=== PATIENT | female | born 1960 | race Caucasian/White ===

== ENCOUNTER → 2017-07-29 08:38 | Outpatient (REF) | payer BC, SELFPAY | LOC: LAB 08:38 | PROVIDERS: Visit Provider Physician Assistant | DX: R30.9 Painful micturition, unspecified (principal) | CPT/HCPCS: 87086; 87088; 87186 ==

== ENCOUNTER → 2018-06-23 14:40 | Outpatient (CLI) | payer BC, SELFPAY ==
[2018-06-23 14:43] LABS: Microscopic, Urine URINE MICROSCOPIC (MICROSCOPIC)
--- NOTE | 2018-06-23 14:59 | XR_ITS ---
XR chest 2V HISTORY: ITS.REASON: HTN ORDERING PHYSICIAN: HEBER Del Rosario PATIENT AGE: 58 years COMPARISON: None available FINDINGS: The cardiomediastinal silhouette and pulmonary vascularity are within normal limits. The lungs are clear without infiltrates, suspicious nodules, or pleural effusions. No acute bony abnormalities. There are moderate degenerative changes mid thoracic spine. IMPRESSION: Negative chest, no acute finding
[2018-06-23 15:31] LABS: Basophils % 0.6 % (0.1-2.0); Eosinophils # 0.2 K/mm3 (0.0-0.4); Eosinophils % 2.1 % (0.1-12.0); Hematocrit 40.8 % (37.0-47.0); Hemoglobin 13.4 g/dL (12.2-16.2); Lymphocytes # 1.9 K/mm3 (0.7-4.5); Lymphocytes % 26.5 % (10-50); Mean Corpuscular HGB Conc 32.8 g/dL (31.8-35.4); Mean Corpuscular Hemoglobin 28.7 pg (27.0-31.2); Mean Corpuscular Volume 87.6 fl (81-99); Monocytes # 0.3 K/mm3 (0.1-1.0); Neutrophils # 4.7 K/mm3 (1.8-7.8); Neutrophils % 66.7 % (37.0-80.0); Platelet Count 253 K/mm3 (142-424); Red Blood Count 4.66 M/mm3 (4.20-5.40); Red Cell Distribution Width 13.3 % (11.5-17.5); White Blood Count 7.1 K/mm3 (4.8-10.8)
[2018-06-23 15:33] LABS: Activated Partial Thrombo Time 26.3 seconds (23.6-34.0); INR 1.01 (0.9-1.1); Prothrombin Time 10.4 seconds (9.4-11.8)
[2018-06-23 15:48] LABS: Hemoglobin A1C 5.7 % (0.0-7.0)
[2018-06-23 15:52] LABS: Anion Gap 14.9 mEq/L (5-15); Blood Urea Nitrogen 25 mg/dL (7-18); Calcium 9.8 mg/dL (8.5-10.1); Carbon Dioxide 29 mmol/L (21.0-32.0); Chloride 104 mmol/L (98-107); Creatinine,Serum 1.11 mg/dL (0.55-1.02); Estimated Glomerular Filt Rate 50 ml/min (>60); GFR (African American) 61 ML/MIN (>60); Glucose 103 mg/dL (74-106); Potassium 4.9 mmoL/L (3.5-5.1); Sodium 143 mmol/L (136-145)
[2018-06-23 16:00] LABS: Appearance,Urine CLEAR (Clear); Blood, Urine Negative (Negative); Color,Urine AMBER (Yellow); Glucose,Urine (UA) Negative (Negative); Ketones,Urine 1+ (Negative); Leukocyte Esterase,Urine Negative (Negative); Nitrate,Urine Negative (Negative); Protein,Urine Negative (Negative); Specific Gravity, Urine >= 1.030 (1.005-1.030); Urobilinogen,Urine 0.2 EU/dl (0.2)
[2018-06-23 16:04] LABS: Bilirubin,Urine Negative (Negative)
[2018-06-23 16:08] LABS: Bacteria,Urine 1+ /lpf; RBC,Urine Occasional #/hpf (0-3)
[2018-06-23 16:09] LABS: Mucus,Urine 1+ /lpf
== END ==
PROVIDERS: Visit Provider Physician Assistant
DX: Z01.818 Encounter for other preprocedural examination (principal); M25.561 Pain in right knee
CPT/HCPCS: 36415; 71046; 80048; 81001; 83036; 85025; 85610; 85730; 93005

== ENCOUNTER → 2018-08-12 14:42 | Outpatient (CLI) | payer BC, SELFPAY ==
[2018-08-12 14:46] LABS: Microscopic, Urine URINE MICROSCOPIC (MICROSCOPIC)
[2018-08-12 15:12] LABS: Basophils % 0.6 % (0.1-2.0); Eosinophils # 0.5 K/mm3 (0.0-0.4); Eosinophils % 7.6 % (0.1-12.0); Hematocrit 37.1 % (37.0-47.0); Hemoglobin 12.2 g/dL (12.2-16.2); Lymphocytes # 1.5 K/mm3 (0.7-4.5); Lymphocytes % 24.2 % (10-50); Mean Corpuscular Hemoglobin 29.3 pg (27.0-31.2); Mean Corpuscular Volume 88.8 fl (81-99); Monocytes # 0.3 K/mm3 (0.1-1.0); Monocytes % 5.4 % (1.7-9.3); Neutrophils # 3.7 K/mm3 (1.8-7.8); Neutrophils % 62.2 % (37.0-80.0); Platelet Count 234 K/mm3 (142-424); Red Blood Count 4.18 M/mm3 (4.20-5.40); Red Cell Distribution Width 14.1 % (11.5-17.5)
[2018-08-12 15:21] LABS: Activated Partial Thrombo Time 24.5 seconds (23.6-34.0); Prothrombin Time 10.4 seconds (9.4-11.8)
[2018-08-12 15:29] LABS: Appearance,Urine CLEAR (Clear); Bilirubin,Urine Negative (Negative); Blood, Urine Negative (Negative); Color,Urine YELLOW (Yellow); Glucose,Urine (UA) Negative (Negative); Ketones,Urine Negative (Negative); Leukocyte Esterase,Urine 1+ (Negative); Nitrate,Urine POSITIVE (Negative); Protein,Urine Negative (Negative); Specific Gravity, Urine >= 1.030 (1.005-1.030); Urobilinogen,Urine 0.2 EU/dl (0.2)
[2018-08-12 15:58] LABS: Bacteria,Urine 2+ /lpf; Squamous Epithelial Cell,Urine Occasional #/hpf (0-5)
[2018-08-12 16:22] LABS: Anion Gap 10.4 mEq/L (5-15); Blood Urea Nitrogen 22 mg/dL (7-18); Calcium 9.3 mg/dL (8.5-10.1); Carbon Dioxide 30 mmol/L (21.0-32.0); Chloride 101 mmol/L (98-107); Creatinine,Serum 1.02 mg/dL (0.55-1.02); Estimated Glomerular Filt Rate 56 ml/min (>60); GFR (African American) 67 ML/MIN (>60); Glucose 99 mg/dL (74-106); Potassium 4.4 mmoL/L (3.5-5.1); Sodium 137 mmol/L (136-145)
== END ==
PROVIDERS: Visit Provider Orthopaedic Surgery
DX: Z01.812 Encounter for preprocedural laboratory examination (principal)
CPT/HCPCS: 36415; 80048; 81001; 85025; 85610; 85730; 87086; 87088; 87186

== ENCOUNTER 2018-08-24 13:00 | Outpatient (RCR) | payer BC, SELFPAY | END 2018-08-24 16:00 | disposition home or self-care (01) | LOC: PT.CARL 13:00 | PROVIDERS: Visit Provider Orthopaedic Surgery | DX: Z96.651 Presence of right artificial knee joint (principal) | CPT/HCPCS: 97010; 97110; 97116; 97140; 97163 ==

== ENCOUNTER 2018-11-13 10:00 | Outpatient (RCR) | payer MEDICAID, BC, SELFPAY | END 2018-11-19 15:08 | disposition home or self-care (01) | LOC: PT.CARL 10:00 | PROVIDERS: Visit Provider Orthopaedic Surgery | DX: M17.11 Unilateral primary osteoarthritis, right knee (principal); Z96.652 Presence of left artificial knee joint | CPT/HCPCS: 97010; 97110; 97116; 97163; 97164 ==

== ENCOUNTER → 2019-04-29 16:34 | Outpatient (CLI) | payer BC, MEDICAID, SELFPAY | PROVIDERS: Visit Provider Physician Assistant | DX: R06.00 Dyspnea, unspecified (principal); R10.9 Unspecified abdominal pain | CPT/HCPCS: 87086; 87088; 87186 ==

== ENCOUNTER → 2019-05-11 07:43 | Outpatient (CLI) | payer BC, MEDICAID, SELFPAY ==
--- NOTE | 2019-05-11 07:44 | CA_ITS ---
APPROVED REPORT EXAM: Comprehensive 2D, Doppler, and color-flow Echocardiogram Tobacco Sweeper: Ava Reyes CRT Ht: 5 ft 5 in Wt: 338lbs BSA: 2.47 BP: 152/88 mmHg Indications: SOB, HTN, OBESITY, EX SMOKER 2D Dimensions LVOT 1.93 cm (M/F) 1.5-2.5 M-Mode Dimensions RVDd 3.27 cm (0.9-2.6) LVDd 4.10 cm (3.5-5.7) LVDs 2.05 cm (3.5-5.7) IVSd 1.90 cm (0.6-1.1) PWd 0.87 cm (0.6-1.1) EF (Teich) 81.70% FS 50.00% EDV (Teich) 74.20 mL ESV (Teich) 13.60 mL LV Diastology E/A Ratio 0.80 Mitral Valve MV A Velocity 93.00 (40-130 cm/s) Left Ventricle Left atrium is mildly enlarged, left ventricle is normal size, mild concentric left ventricular hypertrophy, visually estimated ejection fraction 55% with no regional wall motion abnormality, grade 1 diastolic dysfunction seen without tissue Doppler evidence of raise left atrial pressure. Right Ventricle Right atrium and right ventricular normal size and contractility. Aortic Valve Aortic valve is minimally thickened and fibrosed, there is no aortic stenosis or aortic insufficiency. Mitral Valve Mitral valve is grossly normal, there is mild mitral regurgitation. Tricuspid Valve Tricuspid valve is grossly normal, there is mild tricuspid regurgitation, calculated right ventricular systolic pressure is 34 mmHg. Pulmonic Valve Pulmonic valve is poorly visualized. Great Vessels Aortic root is normal size. Pericardium No significant pericardial effusion noted. Conclusion 1. Mildly enlarged left atrium, normal left ventricular size, mild concentric left ventricular hypertrophy, visually estimated ejection fraction 55% with no regional wall motion abnormality, grade 1 diastolic dysfunction seen without tissue Doppler evidence of raise left atrial pressure. 2. Mild mitral and tricuspid regurgitation, calculated right ventricular systolic pressure is 34 mmHg. 3. No significant pericardial effusion noted. Electronically signed by : Jason Pratt, 05/12/2019 06:14:57
--- NOTE | 2019-05-11 09:06 | XR_ITS ---
PROCEDURE: XR CHEST 2V CLINICAL HISTORY: Dyspnea COMPARISON: CXR2V XR chest 2V from 06/23/2018 XR CHEST 2V from 02/13/2019 FINDINGS: The cardiomediastinal silhouette and pulmonary vascularity are within normal limits. The lungs are clear without infiltrates, suspicious nodules, or pleural effusions. No acute bony abnormalities. IMPRESSION: No acute findings. Dictated by: Og Cortez 05/11/2019 12:05 Electronically signed by Og Cortez in [facility] 05/11/2019 12:05
== END ==
PROVIDERS: PCP Physician Assistant; Visit Provider Physician Assistant
DX: R06.00 Dyspnea, unspecified (principal)
CPT/HCPCS: 71046; 93306; 94060; 94726; 94729

== ENCOUNTER → 2019-05-27 07:41 | Outpatient (CLI) | payer SELFPAY ==
--- NOTE | 2019-05-27 07:41 | CT_ITS ---
PROCEDURE: CT HEART W CALCIUM SCORE CLINICAL HISTORY: eval for cad COMPARISON: No exams were available for comparison TECHNIQUE: Axial images obtained with sagittal and coronal reformats. All CT scans at the facility use one or more dose reduction, viz: automated exposure control, ma/kV adjustment per patient size (including targeted exams where dose is matched to indication, i.e. head), or iterative reconstruction technique. FINDINGS: The coronary artery calcium score is 44 indicating mild plaque burden with moderate cardiovascular disease risk. IMPRESSION: Mild plaque burden with moderate cardiovascular disease risk Dictated by: Trey Smith MD 05/27/2019 18:08 Electronically signed by Trey Smith MD in [facility] 05/27/2019 18:08
== END ==
PROVIDERS: PCP Physician Assistant; Visit Provider Internal Medicine Cardiovascular Disease
DX: I51.89 Other ill-defined heart diseases (principal); R93.1 Abnormal findings on diagnostic imaging of heart and coronary circulation; E66.01 Morbid (severe) obesity due to excess calories; I10 Essential (primary) hypertension; Z13.6 Encounter for screening for cardiovascular disorders
CPT/HCPCS: 75571

== ENCOUNTER → 2019-05-28 12:23 | Outpatient (CLI) | payer BC, MEDICAID, SELFPAY ==
[2019-05-28 14:48] LABS: Chloride 101 mmol/L (98-107); Sodium 140 mmol/L (136-145)
[2019-05-28 14:49] LABS: Potassium 4.7 mmoL/L (3.5-5.1)
[2019-05-28 14:51] LABS: Blood Urea Nitrogen 23 mg/dl (7-17); Estimated Glomerular Filt Rate 46 ml/min (>60); GFR (African American) 56 ML/MIN (>60)
[2019-05-28 14:52] LABS: Anion Gap 14.7 mEq/L (5-15); Calcium 9.5 mg/dl (8.4-10.2); Carbon Dioxide 29 mmol/L (22.0-30.0); Glucose 87 mg/dl (74-100)
[2019-05-28 15:01] LABS: NT Pro Brain Natriuretic Pep. 67.9 pg/mL (0-125)
== END ==
PROVIDERS: Visit Provider Internal Medicine Cardiovascular Disease
DX: I50.30 Unspecified diastolic (congestive) heart failure (principal); R93.1 Abnormal findings on diagnostic imaging of heart and coronary circulation; E66.01 Morbid (severe) obesity due to excess calories; I10 Essential (primary) hypertension
CPT/HCPCS: 36415; 80048; 83880

== ENCOUNTER → 2019-06-18 12:44 | Outpatient (CLI) | payer BC, MEDICAID, SELFPAY | PROVIDERS: PCP Physician Assistant; Visit Provider Internal Medicine Cardiovascular Disease | DX: R53.83 Other fatigue (principal); R40.0 Somnolence; R06.83 Snoring; R93.1 Abnormal findings on diagnostic imaging of heart and coronary circulation; I51.89 Other ill-defined heart diseases; I10 Essential (primary) hypertension; E66.01 Morbid (severe) obesity due to excess calories; G47.33 Obstructive sleep apnea (adult) (pediatric) | CPT/HCPCS: G0399 ==

== ENCOUNTER → 2019-07-12 12:15 | Outpatient (CLI) | payer BC, MEDICAID, SELFPAY ==
[2019-07-12 14:01] LABS: Ferritin 106 ng/ml (11.1-264)
[2019-07-12 15:36] LABS: Alanine Aminotransferase 20 U/L (12-78); Albumin Level 4.3 g/dl (3.5-5.0); Alkaline Phosphatase 104 U/L (38-126); Aspartate Amino Transferase 21 U/L (14-36); Bilirubin,Direct 0.1 mg/dl (0.0-0.4); Bilirubin,Indirect 0.6 mg/dL (0.0-0.9); Bilirubin,Total 0.7 mg/dl (0.2-1.3); Bilirubin,Unconjugated 0.7 mg/dL (0.0-1.1); Chol/HDL Ratio 2.2 (1-3.5); Cholesterol 110 mg/dl (140-200); HDL Cholesterol 51 mg/dl (40-60); Total Protein,Serum 7.3 g/dl (6.3-8.2); Triglycerides 125 mg/dl (30-150); VLDL Cholesterol 25 mg/dL (0-40)
[2019-07-12 15:47] LABS: Direct LDL Cholesterol 52.06 mg/dL (100-129)
== END ==
PROVIDERS: Physician Assistant; Visit Provider Specialist
DX: E83.10 Disorder of iron metabolism, unspecified (principal); G25.81 Restless legs syndrome; G47.33 Obstructive sleep apnea (adult) (pediatric); E66.01 Morbid (severe) obesity due to excess calories; I10 Essential (primary) hypertension; I27.20 Pulmonary hypertension, unspecified; I51.89 Other ill-defined heart diseases; R06.00 Dyspnea, unspecified; R93.1 Abnormal findings on diagnostic imaging of heart and coronary circulation
CPT/HCPCS: 36415; 80061; 80076; 82728

== ENCOUNTER 2019-11-05 05:20 | Emergency (ER) | payer BC, MEDICAID, SELFPAY ==
[2019-11-05 05:28] VITALS: BP 177/100; PULSE 91; RESP 18; TEMP 37; O2SAT 97; BMI 56.5
[2019-11-05 05:57] LABS: Basophils # 0.1 K/mm3 (0-0.2); Basophils % 0.6 % (0.1-2.0); Eosinophils # 0.3 K/mm3 (0.0-0.4); Eosinophils % 3.1 % (0.1-12.0); Hematocrit 38.7 % (37.0-47.0); Hemoglobin 13.3 g/dL (12.2-16.2); Lymphocytes # 1.9 K/mm3 (0.7-4.5); Lymphocytes % 20.8 % (10-50); Mean Corpuscular HGB Conc 34.5 g/dL (31.8-35.4); Mean Corpuscular Hemoglobin 30.1 pg (27.0-31.2); Mean Corpuscular Volume 87.3 fl (81-99); Mean Platelet Volume 7.3 fl (7.4-10.4); Monocytes # 0.4 K/mm3 (0.1-1.0); Monocytes % 4.3 % (1.7-9.3); Neutrophils # 6.4 K/mm3 (1.8-7.8); Neutrophils % 71.2 % (37.0-80.0); Platelet Count 238 K/mm3 (142-424); Red Blood Count 4.43 M/mm3 (4.20-5.40); White Blood Count 8.9 K/mm3 (4.8-10.8)
[2019-11-05 06:00] VITALS: BP 165/90; PULSE 94; RESP 18; O2SAT 96
[2019-11-05 06:30] VITALS: BP 160/88; PULSE 88; RESP 18; O2SAT 96
[2019-11-05 06:31] LABS: Erythrocyte Sedimentation Rate 65 mm/hr (0-30)
[2019-11-05 06:51] LABS: Chloride 101 mmol/L (98-107); Potassium 4.7 mmoL/L (3.5-5.1); Sodium 141 mmol/L (136-145)
[2019-11-05 06:53] LABS: Blood Urea Nitrogen 23 mg/dl (7-17); Creatinine Clearance Estimated 55 mL/min (50-200); Estimated Glomerular Filt Rate 57 ml/min (>60); GFR (African American) 69 ML/MIN (>60)
[2019-11-05 06:54] LABS: Alanine Aminotransferase 20 U/L (12-78); Albumin Level 4.2 g/dl (3.5-5.0); Albumin/Globulin Ratio 1.4 (1.1-1.8); Alkaline Phosphatase 110 U/L (38-126); Anion Gap 11.7 mEq/L (5-15); Aspartate Amino Transferase 18 U/L (14-36); Bilirubin,Total 0.8 mg/dl (0.2-1.3); Calcium 9.6 mg/dl (8.4-10.2); Carbon Dioxide 33 mmol/L (22.0-30.0); Globulin 3.1 g/dL (1.3-3.2); Glucose 127 mg/dl (74-100); Total Protein,Serum 7.3 g/dl (6.3-8.2)
[2019-11-05 06:59] LABS: C-Reactive Protein 16.8 mg/L (0-4)
[2019-11-05 07:00] VITALS: BP 164/84; PULSE 89; RESP 16; O2SAT 98
--- NOTE | 2019-11-05 07:22 | HMH.EDHA ---
ED Disposition Clinical Impression: Migraine Qualifiers: Migraine type: unspecified Status migrainosus presence: without status migrainosus Intractability: not intractable Qualified Code(s): G43.909 - Migraine, unspecified, not intractable, without status migrainosus Disposition: Home, Self-Care Condition on Discharge: Good Instructions: DI for Migraine Additional Instructions: call pcp for follow up Referrals: Jamilah Severino PA [Primary Care Provider] - - Critical Care Critical Care Time: No Attestation: On 11/05/19, the high probability of a clinically significant, sudden or life threatening deterioration of the following system(s) required my full and direct attention, intervention and personal management. The time I documented below is in addition to time spent performing reported procedures but includes the following listed in this critical care notation. Medical Decision Making - Medical Records Medical records reviewed: Yes: I reviewed the patient's medical records. - Obed Inquiry Pt receiving controlled substance: No Vital Signs: 11/05/19 05:28 11/05/19 06:00 11/05/19 06:30 Temperature 98.6 F Temperature Source Oral Pulse Rate [Right] 91 H 94 H 88 Respiratory Rate 18 18 18 Blood Pressure [Right Arm] 177/100 H 165/90 H 160/88 H Blood Pressure Mean [Right Arm] 125 115 112 Blood Pressure Source [Right Arm] Automatic Cuff Automatic Cuff Automatic Cuff Blood Pressure Position [Right Arm] Sitting Supine Supine 02 Sat by Pulse Oximetry 97 96 96 Oxygen Delivery Method Room Air Room Air Room Air 11/05/19 07:00 Temperature Temperature Source Pulse Rate [Right] 89 Respiratory Rate 16 Blood Pressure [Right Arm] 164/84 H Blood Pressure Mean [Right Arm] 110 Blood Pressure Source [Right Arm] Automatic Cuff Blood Pressure Position [Right Arm] Supine 02 Sat by Pulse Oximetry 98 Oxygen Delivery Method Room Air - Lab Data Lab results reviewed: Yes: I reviewed the patient's lab results. Lab Results 11/05/19 05:50: WBC 8.9, RBC 4.43, Hgb 13.3, Hct 38.7, MCV 87.3, MCH 30.1, MCHC 34.5, RDW 14.0, Plt Count 238, MPV 7.3 L, Neut % (Auto) 71.2, Lymph % (Auto) 20.8, [place] % (Auto) 4.3, Eos % (Auto) 3.1, Baso % (Auto) 0.6, Neut # (Auto) 6.4, Lymph # (Auto) 1.9, [place] # (Auto) 0.4, Eos # (Auto) 0.3, Baso # (Auto) 0.1, ESR 65 H 11/05/19 06:43: Sodium 141, Potassium 4.7, Chloride 101, Carbon Dioxide 33 H, Anion Gap 11.7, BUN 23 H, Creatinine 1.00, Estimated Creat Clear 55, Estimated GFR 57 L, Est GFR ( Amer) 69, Glucose 127 H, Calcium 9.6, Total Bilirubin 0.8, AST 18, ALT 20, Alkaline Phosphatase 110, C-Reactive Protein 16.8 H, Total Protein 7.3, Albumin 4.2, Globulin 3.1, Albumin/Globulin Ratio 1.4 Result diagrams: 11/05/19 05:50 11/05/19 06:43 Orders (Tests/Meds): ED MEDICATIONS Generic Name Dose Route Start Last Admin Trade Name Freq PRN Reason Stop Dose Admin Sodium Chloride 1,000 mls @ 999 mls/hr 11/05/19 05:45 11/05/19 05:44 Sod Chlor 0.9% 1000ml Bag IV 11/05/19 06:45 999 mls/hr .Q1H1M RANDY Administration Sodium Chloride 8 ml 11/05/19 05:39 Sodium Chloride 0.9% 10ml Vial IV 12/05/19 05:38 NEEDED PRN dilute pepcid Discontinued Medications Generic Name Dose Route Start Last Admin Trade Name Freq PRN Reason Stop Dose Admin Butorphanol Tartrate 1 mg 11/05/19 06:55 11/05/19 07:00 Stadol 1mg/1ml Vial IV 11/05/19 06:56 1 mg ONCE ONE Administration Diphenhydramine HCl 50 mg 11/05/19 05:39 11/05/19 05:44 Benadryl 50mg/1ml Vial IV 11/05/19 05:40 50 mg ONCE ONE Administration Famotidine 20 mg 11/05/19 05:39 11/05/19 05:44 Pepcid 20mg/2ml Vial IV 11/05/19 05:40 20 mg ONCE ONE Administration Ketorolac Tromethamine 30 mg 11/05/19 05:43 11/05/19 05:45 Toradol 30mg/Ml Vial IV 11/05/19 05:44 30 mg ONCE ONE Administration Methylprednisolone Sodium Succinate 125 mg 11/05/19 05:39 11/05/19 05:44 Solu-Medrol 125
[2019-11-05 07:41] VITALS: BP 160/84; PULSE 84; RESP 17; TEMP 37; O2SAT 98
== END 2019-11-05 07:42 | disposition home or self-care (01) ==
PROVIDERS: Emergency Provider Emergency Medicine; PCP Physician Assistant
DX: G43.909 Migraine, unspecified, not intractable, without status migrainosus (principal); K21.9 Gastro-esophageal reflux disease without esophagitis; I10 Essential (primary) hypertension; J45.909 Unspecified asthma, uncomplicated; Z88.5 Allergy status to narcotic agent; Z88.8 Allergy status to other drugs, medicaments and biological substances; Z90.49 Acquired absence of other specified parts of digestive tract; Z90.710 Acquired absence of both cervix and uterus; Z90.09 Acquired absence of other part of head and neck
CPT/HCPCS: 36415; 80053; 85025; 85651; 86140; 96365; 96375; 99284; J0595; J2405

== ENCOUNTER → 2020-04-11 16:26 | Outpatient (CLI) | payer BC, MEDICAID, SELFPAY ==
[2020-04-13 10:13] LABS: Covid-19 Nasal PCR Sendout P&C Negative
== END ==
PROVIDERS: PCP Physician Assistant; Visit Provider Nurse Practitioner
DX: Z20.822 Contact with and (suspected) exposure to COVID-19 (principal)
CPT/HCPCS: U0004

== ENCOUNTER 2020-06-02 19:20 | Emergency (ER) | payer BC, MEDICAID, SELFPAY ==
[2020-06-02 19:27] VITALS: BP 141/86; PULSE 89; RESP 20; TEMP 36.8; O2SAT 97; BMI 57.4
--- NOTE | 2020-06-02 19:32 | HMH.EDUTC ---
[facility] [place] Impression: Neck pain Thoracic back pain Qualifiers: Chronicity: acute Back pain laterality: right Qualified Code(s): M54.6 - Pain in thoracic spine Back strain Qualifiers: Encounter type: initial encounter Qualified Code(s): S39.012A - Strain of muscle, fascia and tendon of lower back, initial encounter Disposition: Home, Self-Care Condition on Discharge: Good Instructions: DI for Chronic Pain -- Adult, DI for Back Strain or Sprain Additional Instructions: Go home and rest. It would be best if you rested tomorrow too. No heavy lifting. No twisting. Take the oral medications as directed. The muscle relaxer (robaxin) will make you drowsy, so don't drive or operate heavy machinery after taking it. Don't start the oral steroids (prednisone) until tomorrow, since you had the shots in here today. Follow up with your regular doctor. GO TO THE ER FOR ANY WORSENING SYMPTOMS OR CONCERN, ESPECIALLY BOWEL OR BLADDER ISSUES, SADDLE AREA NUMBNESS, FEVER, ETC Prescriptions: predniSONE [Prednisone 20mg Tab] 20 mg PO BID 4 Days #8 tab Transmission Status: Received by [id number] methocarbamoL [Robaxin 750mg Tab] 750 mg PO BIDP PRN #30 tab PRN Reason: Muscle Spasm Transmission Status: Received by [id number] Referrals: Jamilah Severino PA [Primary Care Provider] - Forms: Work/School Release Time of Disposition: 19:49 Medical Decision Making - Medical Records Medical records reviewed: No: I reviewed the patient's medical records. - Obed Inquiry Pt receiving controlled substance: No Vital Signs: 06/02/20 19:27 06/02/20 19:45 Temperature 98.2 F 98 F Temperature Source Oral Pulse Rate 92 H Pulse Rate [Right] 89 Respiratory Rate 20 19 Blood Pressure 138/87 Blood Pressure [Right Arm] 141/86 H Blood Pressure Mean [Right Arm] 104 Blood Pressure Source [Right Arm] Automatic Cuff Blood Pressure Position [Right Arm] Sitting 02 Sat by Pulse Oximetry 97 Oxygen Delivery Method Room Air Orders (Tests/Meds): ED MEDICATIONS Discontinued Medications Generic Name Dose Route Start Last Admin Trade Name Freq PRN Reason Stop Dose Admin Ketorolac Tromethamine 60 mg 06/02/20 19:38 06/02/20 19:43 Ketorolac 60mg/2ml Vial IM 06/02/20 19:39 60 mg ONCE ONE Administration Methylprednisolone Sodium Succinate 125 mg 06/02/20 19:38 06/02/20 19:43 Methylprednisolone Sod Succ 125mg Vial IM 06/02/20 19:39 125 mg ONCE ONE Administration [facility] [place] - General Stated complaint: Back and shoulder pain Time Seen by Provider: 06/02/20 19:35 Mode of Arrival: Ambulatory Source of Information: Patient Limitations: No Limitations Description of Symptoms (Recalled from Triage Doc. by RN): upper back and neck pain. no injury. she says she just feels sore. HEENT Symptoms (Recalled from RN notes): No Resp Symptoms (Recalled from RN notes): No Skin Symptoms (Recalled from RN notes): No MS Symptoms (Recalled from RN notes): Yes (neck and uppper back pain) Functional Status (Recalled from RN notes): na - History of Present Illness Provider Complaint: She reports that for the past 2 days she has had upper back and neck pain. She states that it feels like she pulled a muscle. She denies any known injury. She denies any numbness of her extremities. - Related Data Home Medications Medication Instructions Recorded Confirmed metoprolol succinate 50 mg 50 mg PO DAILY tab 08/13/19 04/11/20 tablet,extended release 24 hr Previous Rx's Medication Instructions Recorded albuterol sulfate 90 mcg/actuation See Rx Instructions .ROUTE 07/05/19 aerosol inhaler .COMPLEX #18 inhaler atorvastatin 40 mg tablet 40 mg PO DAILY #90 tab 09/06/19 diclofenac sodium 75 mg See Rx Instructions .ROUTE 11/30/19 tablet,delayed release .COMPLEX #90 tab amlodipine 5 mg tablet See Rx Instructions .ROUTE 12/30/19 .COMPLEX #90 tab pen needle, diabeti
[2020-06-02 19:45] VITALS: BP 138/87; PULSE 92; RESP 19; TEMP 36.6
== END 2020-06-02 19:55 | disposition home or self-care (01) ==
PROVIDERS: Emergency Provider Nurse Practitioner Family; PCP Physician Assistant
DX: S39.012A Strain of muscle, fascia and tendon of lower back, initial encounter (principal); M54.6 Pain in thoracic spine; I10 Essential (primary) hypertension; K21.9 Gastro-esophageal reflux disease without esophagitis; J45.909 Unspecified asthma, uncomplicated; Z79.899 Other long term (current) drug therapy; Z88.5 Allergy status to narcotic agent; Z88.8 Allergy status to other drugs, medicaments and biological substances
CPT/HCPCS: 96372; 99202; G0463

== ENCOUNTER 2020-08-21 13:46 | Emergency (ER) | payer BC, MEDICAID, SELFPAY ==
[2020-08-21 14:50] VITALS: BP 140/82; PULSE 78; RESP 20; TEMP 36.9; O2SAT 96; BMI 58.2
[2020-08-21 15:08] LABS: UTC Strep Screen (Rapid) Negative (Negative)
--- NOTE | 2020-08-21 15:11 | HMH.EDUTC ---
[facility] [place] Clinical Impression: Pharyngitis Qualifiers: Pharyngitis/tonsillitis etiology: unspecified etiology Qualified Code(s): J02.9 - Acute pharyngitis, unspecified Disposition: Home, Self-Care Condition on Discharge: Good Instructions: Sore Throat, DI for Pharyngitis/Tonsillopharyngitis -- Adult Additional Instructions: Drink plenty of fluids. Take tylenol or ibuprofen for pain or fever. Take the medications as directed. Follow up with your regular doctor. GO TO THE ER FOR ANY WORSENING SYMPTOMS Prescriptions: predniSONE [Prednisone 20mg Tab] 20 mg PO BID 4 Days #8 tab Transmission Status: Received by [id number] Azithromycin [Z-Howard 250mg Tab*] 250 mg PO UD DOSE PK #6 tab Transmission Status: Received by [facility] #[id number] Referrals: Jamilah Severino PA [Primary Care Provider] - Forms: Work/School Release Time of Disposition: 15:18 Medical Decision Making - Medical Records Medical records reviewed: No: I reviewed the patient's medical records. - Obed Inquiry Pt receiving controlled substance: No Vital Signs: 08/21/20 14:50 08/21/20 15:22 Temperature 98.4 F 98.4 F Temperature Source Oral Pulse Rate 78 Pulse Rate [Left Brachial] 78 Respiratory Rate 20 20 Blood Pressure 140/82 Blood Pressure [Left Arm] 140/82 Blood Pressure Mean [Left Arm] 101 Blood Pressure Source [Left Arm] Automatic Cuff Blood Pressure Position [Left Arm] Sitting 02 Sat by Pulse Oximetry 96 Oxygen Delivery Method Room Air - Lab Data Lab results reviewed: Yes: I reviewed the patient's lab results. Lab Results 08/21/20 15:07: Strep Scn Rapid Clinic Negative Orders (Tests/Meds): ORDERS Category Date Time Status Strep Screen Confirmation Stat Micro 08/21/20 15:07 Received [facility] [place] - General Stated complaint: sore throat, both ear pain Time Seen by Provider: 08/21/20 15:11 Mode of Arrival: Ambulatory Source of Information: Patient Limitations: No Limitations Description of Symptoms (Recalled from Triage Doc. by RN): PATIENT C/O SORE THROAT, BILATERAL EAR ACHE AND SORE NECK SINCE FRIDAY NIGHT HEENT Symptoms (Recalled from RN notes): Yes Resp Symptoms (Recalled from RN notes): No Skin Symptoms (Recalled from RN notes): No MS Symptoms (Recalled from RN notes): No Functional Status (Recalled from RN notes): WNL - History of Present Illness Provider Complaint: She c/o for the past 2 days she has had a sore throat and bilateral ear pain. She denies a cough or chest congestion. - Related Data Home Medications Medication Instructions Recorded Confirmed metoprolol succinate 50 mg 50 mg PO DAILY tab 08/13/19 04/11/20 tablet,extended release 24 hr Previous Rx's Medication Instructions Recorded albuterol sulfate 90 mcg/actuation See Rx Instructions .ROUTE 07/05/19 aerosol inhaler .COMPLEX #18 inhaler atorvastatin 40 mg tablet 40 mg PO DAILY #90 tab 09/06/19 diclofenac sodium 75 mg See Rx Instructions .ROUTE 11/30/19 tablet,delayed release .COMPLEX #90 tab amlodipine 5 mg tablet See Rx Instructions .ROUTE 12/30/19 .COMPLEX #90 tab pen needle, diabetic 32 gauge x See Rx Instructions .ROUTE 12/30/19/16 .MEDSUPPLY #100 each ergocalciferol (vitamin D2) 1,250 1,250 mcg PO QWEEK #12 cap 01/03/20 mcg (50,000 unit) capsule aspirin 81 mg tablet,delayed 81 mg PO DAILY #30 tab 02/03/20 release fluticasone 100 mcg-salmeterol 50 See Rx Instructions .ROUTE 02/03/20 mcg/dose blistr powdr for .COMPLEX #60 disk inhalation lisinopril 20 See Rx Instructions .ROUTE 02/03/20 mg-hydrochlorothiazide 25 mg tablet .COMPLEX #90 tab montelukast 10 mg tablet 10 mg PO DAILY #90 tab 02/03/20 omeprazole 40 mg capsule,delayed See Rx Instructions .ROUTE 02/03/20 release .COMPLEX #90 cap liraglutide (weight loss) 3 mg/0.5 See Rx Instructions .ROUTE 03/27/20 mL (18 mg/3 mL) subcut pen injector .COMPLEX #15 syringe amoxicillin 875 mg-potassium 1 tab PO BID 10 D
[2020-08-21 15:22] VITALS: BP 140/82; PULSE 78; RESP 20; TEMP 36.9; O2SAT 96
== END 2020-08-21 15:27 | disposition home or self-care (01) ==
PROVIDERS: Emergency Provider Nurse Practitioner Family; PCP Physician Assistant
DX: J02.9 Acute pharyngitis, unspecified (principal)
CPT/HCPCS: 87880; 99202; G0463

== ENCOUNTER 2020-11-12 11:59 | Emergency (ER) | payer BC, MEDICAID, SELFPAY ==
[2020-11-12 12:00] VITALS: BP 152/90; PULSE 81; RESP 18; TEMP 36.8; O2SAT 94; BMI 58.2
--- NOTE | 2020-11-12 12:33 | HMH.EDUTC ---
[facility] [place] Disposition Clinical Impression: Nausea Diarrhea Qualifiers: Diarrhea type: unspecified type Qualified Code(s): R19.7 - Diarrhea, unspecified Disposition: Home, Self-Care Condition on Discharge: Good Instructions: Diarrhea, DI for Nausea -- Adult Additional Instructions: Monitor temperature. Seek treatment if fever develops. Follow-up immediately if new or worse symptoms worsen or no noticeable improvement over 48 hours. Increase fluids such as water, Gatorade, Powerade, juice or Pedialyte with limited formula/dietary in children No food is okay as long as you are drinking. Once ready to eat start bland such as bananas, rice, applesauce, toast. Contagious until no diarrhea, vomiting, fever times 48 hours without medication Avoid antidiarrheals unless told otherwise. Best to let the virus run its course. Follow-up immediately for new or worsening symptoms or no noticeable improvement over the next 48 hours. covid swab was sent to lab, call later today for results. self isolate until test results are known to be negative Prescriptions: Dicyclomine HCl [Bentyl 10mg capsule] 10 mg PO TID PRN 3 Days #9 cap PRN Reason: Cramping Transmission Status: [id number] ondansetron HCL [Zofran 4mg Tab*] 4 mg PO TIDP PRN 4 Days #12 tab PRN Reason: Nausea Transmission Status: [id number] Referrals: Jamilah Severino PA [Primary Care Provider] - Forms: Work/School Release Time of Disposition: 12:41 Medical Decision Making - Obed Inquiry Pt receiving controlled substance: No Obed was queried for this patient: No Vital Signs: 11/12/20 12:00 Temperature 98.2 F Temperature Source Oral Pulse Rate [Left Brachial] 81 Respiratory Rate 94 H Blood Pressure [Left Arm] 152/90 H Blood Pressure Mean [Left Arm] 110 Blood Pressure Source [Left Arm] Automatic Cuff Blood Pressure Position [Left Arm] Sitting 02 Sat by Pulse Oximetry 94 L Oxygen Delivery Method Room Air [facility] [place] HPI - General Chief complaint: [facility]gent [facility] Stated complaint: diarrhea, [place] Time Seen by Provider: 11/12/20 12:33 Mode of Arrival: Ambulatory Source of Information: Patient Limitations: No Limitations Description of Symptoms (Recalled from Triage Doc. by RN): PATIENT C/O ABDOMINAL CRAMPING, DIARRHEA, NAUSEA, BACK PAIN AND HEADACHE SINCE FRIDAY HEENT Symptoms (Recalled from RN notes): Yes Resp Symptoms (Recalled from RN notes): No Skin Symptoms (Recalled from RN notes): No MS Symptoms (Recalled from RN notes): No Functional Status (Recalled from RN notes): WNL - History of Present Illness Provider Complaint: 60 yr old female presents for abd cramping,diarrhea,nausea headache and low back pain since friday. denies fever - Related Data Home Medications Medication Instructions Recorded Confirmed metoprolol succinate 50 mg 50 mg PO DAILY tab 08/13/19 10/23/20 tablet,extended release 24 hr Previous Rx's Medication Instructions Recorded diclofenac sodium 75 mg See Rx Instructions .ROUTE 11/30/19 tablet,delayed release .COMPLEX #90 tab amlodipine 5 mg tablet See Rx Instructions .ROUTE 12/30/19 .COMPLEX #90 tab ergocalciferol (vitamin D2) 1,250 1,250 mcg PO QWEEK #12 cap 01/03/20 mcg (50,000 unit) capsule aspirin 81 mg tablet,delayed 81 mg PO DAILY #30 tab 02/03/20 release fluticasone 100 mcg-salmeterol 50 See Rx Instructions .ROUTE 02/03/20 mcg/dose blistr powdr for .COMPLEX #60 disk inhalation lisinopril 20 See Rx Instructions .ROUTE 02/03/20 mg-hydrochlorothiazide 25 mg tablet .COMPLEX #90 tab montelukast 10 mg tablet 10 mg PO DAILY #90 tab 02/03/20 omeprazole 40 mg capsule,delayed See Rx Instructions .ROUTE 02/03/20 release .COMPLEX #90 cap liraglutide (weight loss) 3 mg/0.5 See Rx Instructions .ROUTE 03/27/20 mL (18 mg/3 mL) subcut pen injector .COMPLEX #15 syringe loratadine 10 mg tablet See Rx Instructions .ROUTE 05/29/20 .COMPLEX #90 tab spironolactone 25 mg
[2020-11-12 12:44] VITALS: BP 152/90; PULSE 81; RESP 22; TEMP 36.8; O2SAT 94
[2020-11-12 13:11] LABS: Adenovirus F 40/41, stool Not Detected (NotDetected); Astrovirus Not Detected (NotDetected); Campylobacter Not Detected (NotDetected); Clostridium Difficile A/B, PCR Not Detected (NotDetected); Cryptosporidium Not Detected (NotDetected); Cyclospora Cayetanesis Not Detected (NotDetected); Entamoeba histolytica Not Detected (NotDetected); Enteroaggregative E coli Not Detected (NotDetected); Enteropathogenic E coli Not Detected (NotDetected); Enterotoxigenic E coli Not Detected (NotDetected); Giardia lamblia Not Detected (NotDetected); Norovirus Not Detected (NotDetected); Plesimonas Shigalloides, PCR Not Detected (NotDetected); Rotavirus A Not Detected (NotDetected); Salmonella, PCR Not Detected (NotDetected); Sapovirus Not Detected (NotDetected); Shiga-like toxin E coli Not Detected (NotDetected); Shigella Enterovasive E coli Not Detected (NotDetected); Vibrio Cholerae Not Detected (NotDetected); Vibrio, PCR Not Detected (NotDetected); Yersinia Entercolitica, PCR Not Detected (NotDetected)
== END 2020-11-12 12:50 | disposition home or self-care (01) ==
PROVIDERS: Emergency Provider Nurse Practitioner Family; PCP Physician Assistant
DX: R11.0 Nausea (principal); R19.7 Diarrhea, unspecified
CPT/HCPCS: 87507; 99202; G0463; U0003

== ENCOUNTER → 2021-01-11 18:44 | Outpatient (CLI) | payer BC, MEDICAID, SELFPAY | PROVIDERS: Visit Provider Nurse Practitioner Family | DX: N39.0 Urinary tract infection, site not specified (principal); B96.20 Unspecified Escherichia coli [E. coli] as the cause of diseases classified elsewhere | CPT/HCPCS: 87086; 87088; 87186 ==

== ENCOUNTER → 2021-02-10 11:25 | Outpatient (CLI) | payer BC, MEDICAID, SELFPAY ==
[2021-02-10 11:44] LABS: Basophils # 0.1 K/mm3 (0-0.2); Eosinophils # 0.3 K/mm3 (0.0-0.4); Eosinophils % 3.5 % (0.1-12.0); Hematocrit 38.9 % (37.0-47.0); Hemoglobin 12.7 g/dL (12.2-16.2); Lymphocytes # 1.9 K/mm3 (0.7-4.5); Lymphocytes % 24.8 % (10-50); Mean Corpuscular HGB Conc 32.7 g/dL (31.8-35.4); Mean Corpuscular Hemoglobin 29.4 pg (27.0-31.2); Mean Corpuscular Volume 89.8 fl (81-99); Mean Platelet Volume 7.9 fl (7.4-10.4); Monocytes # 0.3 K/mm3 (0.1-1.0); Monocytes % 4.2 % (1.7-9.3); Neutrophils % 66.6 % (37.0-80.0); Platelet Count 281 K/mm3 (142-424); Red Blood Count 4.33 M/mm3 (4.20-5.40); Red Cell Distribution Width 14.8 % (11.5-17.5); White Blood Count 7.6 K/mm3 (4.8-10.8)
[2021-02-10 12:16] LABS: Chloride 104 mmol/L (98-107); Potassium 5.7 mmoL/L (3.5-5.1); Sodium 142 mmol/L (136-145)
[2021-02-10 12:19] LABS: Alanine Aminotransferase 30 U/L (12-78); Albumin Level 4.3 g/dl (3.5-5.0); Albumin/Globulin Ratio 1.5 (1.1-1.8); Alkaline Phosphatase 95 U/L (38-126); Anion Gap 11.7 mEq/L (5-15); Aspartate Amino Transferase 24 U/L (14-36); Bilirubin,Total 0.5 mg/dl (0.2-1.3); Blood Urea Nitrogen 31 mg/dl (7-17); Calcium 9.7 mg/dl (8.4-10.2); Carbon Dioxide 32 mmol/L (22.0-30.0); Cholesterol 166 mg/dl (140-200); Estimated Glomerular Filt Rate 51 ml/min (>60); GFR (African American) 61 ML/MIN (>60); Globulin 2.8 g/dL (1.3-3.2); Glucose 112 mg/dl (74-100); Iron 70 ug/dL (37-170); Total Protein,Serum 7.1 g/dl (6.3-8.2); Triglycerides 170 mg/dl (30-150); VLDL Cholesterol 34 mg/dL (0-40)
[2021-02-10 12:20] LABS: Chol/HDL Ratio 3.5 (1-3.5); HDL Cholesterol 48 mg/dl (40-60)
[2021-02-10 12:29] LABS: Total Iron Binding Capacity 295 ug/dL (265-497)
[2021-02-10 12:30] LABS: Direct LDL Cholesterol 83.46 mg/dL (100-129)
[2021-02-10 12:37] LABS: 25-OH Vitamin D, Total 37.2 ng/mL (30-100)
[2021-02-10 12:51] LABS: Thyroid Stimulating Hormone 1.83 uIU/mL (0.465-4.68)
[2021-02-10 12:55] LABS: Ferritin 113 ng/ml (11.1-264)
[2021-02-10 13:17] LABS: Vitamin B12 290 pg/mL (239-931)
== END ==
PROVIDERS: Visit Provider Physician Assistant
DX: G62.9 Polyneuropathy, unspecified (principal); G25.81 Restless legs syndrome; E66.01 Morbid (severe) obesity due to excess calories; Z68.43 Body mass index [BMI] 50.0-59.9, adult
CPT/HCPCS: 36415; 80053; 80061; 82306; 82607; 82728; 83540; 83550; 84443; 85025

== ENCOUNTER → 2021-02-14 18:09 | Outpatient (CLI) | payer BC, MEDICAID, SELFPAY ==
[2021-02-14 19:10] LABS: Anion Gap 11.1 mEq/L (5-15); Blood Urea Nitrogen 36 mg/dl (7-17); Calcium 9.3 mg/dl (8.4-10.2); Carbon Dioxide 32 mmol/L (22.0-30.0); Chloride 102 mmol/L (98-107); Estimated Glomerular Filt Rate 46 ml/min (>60); GFR (African American) 55 ML/MIN (>60); Glucose 98 mg/dl (74-100); Potassium 5.1 mmoL/L (3.5-5.1); Sodium 140 mmol/L (136-145)
[2021-02-14 19:12] LABS: Hemoglobin A1C 6.1 % (4.0-6.0)
== END ==
PROVIDERS: Visit Provider Physician Assistant
DX: R89.9 Unspecified abnormal finding in specimens from other organs, systems and tissues (principal); R73.09 Other abnormal glucose
CPT/HCPCS: 80048; 83036

== ENCOUNTER 2021-04-03 18:35 | Emergency (ER) | payer BC, MEDICAID, SELFPAY ==
[2021-04-03 20:13] VITALS: BP 144/70; PULSE 86; RESP 19; TEMP 37; O2SAT 96; BMI 58.2
[2021-04-03 20:21] LABS: UTC Strep Screen (Rapid) Negative (Negative)
--- NOTE | 2021-04-03 20:22 | HMH.EDUTC ---
[facility] [place] Clinical Impression: Bronchitis Sinusitis Qualifiers: Sinusitis location: unspecified location Chronicity: unspecified Qualified Code(s): J32.9 - Chronic sinusitis, unspecified Disposition: Home, Self-Care Condition on Discharge: Good Instructions: Sinusitis, Acute Bronchitis, DI for Sinusitis Additional Instructions: *Monitor Temp, Over the counter Motrin or Tylenol as directed/as needed Tylenol every 4 hours and Motrin every 6 hours (as long as your family doctor has told you that you can take it) for fever or pain. and straight to ER if unable to lower temp less than 101.0 after medication given *Warm salt water gargles may help to soothe the throat *Throat Lozenges *Warm fluids like tea with honey may help to soothe the throat *Sleep elevated *Humidifier/Vaporizer Follow up IMMEDIATELY for new or worsening symptoms or no Noticeable improvement over the next 48-72 hours. 911 for difficulty breathing or swallowing You were tested for today for COVID19 your test result should be back in the next 24-48 hours, you check your results on the [facility] my health portal if you have trouble logging on or seeing your results you may call You was given a handout with instructions for Self Quarantine and Self isolation for while you wait on test results and what to do if they are positive If you are positive the Health Dept will be contacting you also Make sure to take your Vitamins Vit. C Vit D and Zinc if you can take them Prescriptions: Benzonatate [Benzonatate 100mg cap] 100 mg PO Q8HP PRN #15 cap PRN Reason: Cough Transmission Status: Pending to [facility] Amoxicillin/Potassium Clav [Augmentin 875-125 Tablet] 1 tab PO Q12H 10 Days #20 tab Transmission Status: Pending to [facility] predniSONE [Deltasone 10mg tablet] 10 mg PO BID 5 Days #10 tab Transmission Status: Pending to [facility] Referrals: Jamilah Severino PA [Primary Care Provider] - As needed Forms: Work/School Release Time of Disposition: 20:50 Medical Decision Making - Obed Inquiry Pt receiving controlled substance: No Obed was queried for this patient: No Vital Signs: 04/03/21 20:13 Temperature 98.6 F Temperature Source Oral Pulse Rate [Right Radial] 86 Respiratory Rate 19 Blood Pressure [Right Arm] 144/70 H Blood Pressure Mean [Right Arm] 94 Blood Pressure Source [Right Arm] Automatic Cuff Blood Pressure Position [Right Arm] Sitting 02 Sat by Pulse Oximetry 96 Oxygen Delivery Method Room Air - Lab Data Lab results reviewed: Yes: I reviewed the patient's lab results. Lab Results 04/03/21 20:12: Strep Scn Rapid Clinic Negative Orders (Tests/Meds): ORDERS Category Date Time Status Covid-19 Nasal PCR ([facility]) Routine Lab 04/03/21 20:00 Received Strep Screen Confirmation Stat Micro 04/03/21 20:12 Received [facility] UTC HPI - General Stated complaint: covid test/treated for covid symptoms Time Seen by Provider: 04/03/21 20:22 Mode of Arrival: Ambulatory Source of Information: Patient Limitations: No Limitations Description of Symptoms (Recalled from Triage Doc. by RN): C/O cough, chills, sore throat, bodyaches x4 days HEENT Symptoms (Recalled from RN notes): Yes (sore throat) Resp Symptoms (Recalled from RN notes): Yes (cough) Skin Symptoms (Recalled from RN notes): No MS Symptoms (Recalled from RN notes): Yes (bodyaches) Functional Status (Recalled from RN notes): n/a - History of Present Illness Provider Complaint: Patient states that she has not felt well for about a week States She has been having sinus pain and pressure, cough, drainage in the back of her throat body aches and low grade fever State that she feels achy all over and sore from coughing State that today she has continued to feel worse so she came in to get checked State that tested for COVID yesterday and was negative - Related Data Home Medications Medication Instructions
[2021-04-03 20:42] LABS: UTC Influenza A Antigen Negative (Negative)
[2021-04-03 20:43] LABS: UTC Influenza B Antigen Negative (Negative)
[2021-04-03 20:58] VITALS: BP 144/70; PULSE 86; RESP 19; TEMP 37; O2SAT 96
== END 2021-04-03 20:59 | disposition home or self-care (01) ==
PROVIDERS: Emergency Provider Nurse Practitioner; PCP Physician Assistant
DX: J20.9 Acute bronchitis, unspecified (principal); J32.9 Chronic sinusitis, unspecified; K21.9 Gastro-esophageal reflux disease without esophagitis; I10 Essential (primary) hypertension; J45.909 Unspecified asthma, uncomplicated; Z20.822 Contact with and (suspected) exposure to COVID-19; Z88.5 Allergy status to narcotic agent
CPT/HCPCS: 87804; 87880; 99203; C9803; G0463; U0003; U0005

== ENCOUNTER 2021-04-07 11:55 | Emergency (ER) | payer BC, MEDICAID, SELFPAY ==
[2021-04-07] VITALS (8 sets, daily range): BP systolic 113–173; BP diastolic 65–103; PULSE 78–105; RESP 13–24; TEMP 36.6–36.9; O2SAT 94–98; BMI 58.2
--- NOTE | 2021-04-07 12:11 | XR_ITS ---
PROCEDURE INFORMATION: Exam: XR Chest Exam date and time: 04/07/2021 12:11 PM Age: 61 years old Clinical indication: Shortness of breath; Additional info: Sob- covid negative TECHNIQUE: Imaging protocol: XR of the chest. Views: 2 views. COMPARISON: CR XR CHEST 2V 05/11/2019 9:19 AM FINDINGS: Lungs: No focal airspace disease. Pleural spaces: Unremarkable. No pleural effusion. No pneumothorax. Heart/Mediastinum: Cardiomediastinal silhouette is within normal limits. Bones/joints: Unremarkable. IMPRESSION: No acute cardiopulmonary abnormality.
--- NOTE | 2021-04-07 12:28 | HMH.EDGENADL ---
ED Disposition Clinical Impression: Moderate asthma with acute exacerbation Qualifiers: Asthma persistence: unspecified Qualified Code(s): J45.901 - Unspecified asthma with (acute) exacerbation Disposition: Home, Self-Care Condition on Discharge: Good Additional Instructions: Please continue to monitor your condition at home. If your condition worsens or any other concerns arise, please return to the emergency department for reassessment. Referrals: Jamilah Severino PA [Primary Care Provider] - - Critical Care Critical Care Time: No Attestation: On 04/07/21, the high probability of a clinically significant, sudden or life threatening deterioration of the following system(s) required my full and direct attention, intervention and personal management. The time I documented below is in addition to time spent performing reported procedures but includes the following listed in this critical care notation. Medical Decision Making - Medical Records Medical records reviewed: Yes: I reviewed the patient's medical records. - Obed Inquiry Pt receiving controlled substance: No Vital Signs: 04/07/21 11:56 04/07/21 13:50 04/07/21 14:00 Temperature 98.4 F Temperature Source Oral Pulse Rate 100 H 101 H Pulse Rate [Radial] 104 H Respiratory Rate 24 16 16 Blood Pressure 139/81 133/74 Blood Pressure [Right Arm] 173/103 H Blood Pressure Mean 103 93 Blood Pressure Mean [Right Arm] 126 Blood Pressure Position [Right Arm] Sitting 02 Sat by Pulse Oximetry 94 L 98 97 Oxygen Delivery Method Room Air 04/07/21 14:30 04/07/21 15:00 04/07/21 15:30 Temperature Temperature Source Pulse Rate 103 H 101 H 100 H Pulse Rate [Radial] Respiratory Rate 15 13 17 Blood Pressure 139/71 137/83 138/82 Blood Pressure [Right Arm] Blood Pressure Mean 98 Blood Pressure Mean [Right Arm] Blood Pressure Position [Right Arm] 02 Sat by Pulse Oximetry 97 98 97 Oxygen Delivery Method 04/07/21 16:00 Temperature Temperature Source Pulse Rate 105 H Pulse Rate [Radial] Respiratory Rate 18 Blood Pressure 128/86 Blood Pressure [Right Arm] Blood Pressure Mean Blood Pressure Mean [Right Arm] Blood Pressure Position [Right Arm] 02 Sat by Pulse Oximetry 97 Oxygen Delivery Method - Lab Data Lab results reviewed: Yes: I reviewed the patient's lab results. Lab Results 04/07/21 12:19: VBG pH 7.36, VBG pCO2 49.1, VBG pO2 103.0 H, VBG HCO3 27.1, VBG Total CO2 28.6 H, VBG O2 Saturation 97.7 H, VBG Base Excess 1.6 04/07/21 12:55: WBC 5.7, RBC 4.56, Hgb 13.2, Hct 41.6, MCV 91.3, MCH 28.9, MCHC 31.7 L, RDW 14.8, Plt Count 245, MPV 7.8, Neut % (Auto) 74.5, Lymph % (Auto) 20.8, [place] % (Auto) 3.6, Eos % (Auto) 0.3, Baso % (Auto) 0.9, Neut # (Auto) 4.3, Lymph # (Auto) 1.2, [place] # (Auto) 0.2, Eos # (Auto) 0.0, Baso # (Auto) 0.1 04/07/21 12:55: D-Dimer 0.80 H 04/07/21 12:55: Sodium 139, Potassium 4.4, Chloride 100, Carbon Dioxide 32 H, Anion Gap 11.4, BUN 19 H, Creatinine 1.00, Estimated Creat Clear 53, Estimated GFR 56 L, Est GFR ( Amer) 68, Glucose 175 H, Calcium 9.1, Magnesium 1.8, Total Bilirubin 0.6, AST 33, ALT 45, Alkaline Phosphatase 99, Total Protein 7.7, Albumin 4.6, Globulin 3.1, Albumin/Globulin Ratio 1.5 Result diagrams: 04/07/21 12:55 04/07/21 12:55 Orders (Tests/Meds): ED MEDICATIONS Discontinued Medications Generic Name Dose Route Start Last Admin Trade Name Freq PRN Reason Stop Dose Admin Albuterol/Ipratropium 6 ml 04/07/21 12:19 04/07/21 12:38 Ipratropium/Albuterol 3 Ml Neb IH 04/07/21 12:20 6 ml ONCE ONE Administration Dexamethasone 10 mg 04/07/21 12:20 04/07/21 12:38 Dexamethasone 1mg/1ml Intensol 10ml Udc (Er) PO 04/07/21 12:21 10 mg ONCE ONE Administration Magnesium Sulfate 2 gm/ Sodium 104 mls @ 100 mls/hr 04/07/21 13:19 04/07/21 13:47 Chloride IV 04/07/21 14:21 100 mls/hr ONCE ONE Administration Medical Decision Narrative:
[2021-04-07 13:07] LABS: Basophils # 0.1 K/mm3 (0-0.2); Basophils % 0.9 % (0.1-2.0); Eosinophils % 0.3 % (0.1-12.0); Hematocrit 41.6 % (37.0-47.0); Hemoglobin 13.2 g/dL (12.2-16.2); Lymphocytes # 1.2 K/mm3 (0.7-4.5); Lymphocytes % 20.8 % (10-50); Mean Corpuscular HGB Conc 31.7 g/dL (31.8-35.4); Mean Corpuscular Hemoglobin 28.9 pg (27.0-31.2); Mean Corpuscular Volume 91.3 fl (81-99); Mean Platelet Volume 7.8 fl (7.4-10.4); Monocytes # 0.2 K/mm3 (0.1-1.0); Monocytes % 3.6 % (1.7-9.3); Neutrophils # 4.3 K/mm3 (1.8-7.8); Neutrophils % 74.5 % (37.0-80.0); Platelet Count 245 K/mm3 (142-424); Red Blood Count 4.56 M/mm3 (4.20-5.40); Red Cell Distribution Width 14.8 % (11.5-17.5); White Blood Count 5.7 K/mm3 (4.8-10.8)
[2021-04-07 13:17] LABS: Alanine Aminotransferase 45 U/L (12-78); Albumin Level 4.6 g/dl (3.5-5.0); Albumin/Globulin Ratio 1.5 (1.1-1.8); Alkaline Phosphatase 99 U/L (38-126); Anion Gap 11.4 mEq/L (5-15); Aspartate Amino Transferase 33 U/L (14-36); Bilirubin,Total 0.6 mg/dl (0.2-1.3); Blood Urea Nitrogen 19 mg/dl (7-17); Calcium 9.1 mg/dl (8.4-10.2); Carbon Dioxide 32 mmol/L (22.0-30.0); Chloride 100 mmol/L (98-107); Creatinine Clearance Estimated 53 mL/min (50-200); Estimated Glomerular Filt Rate 56 ml/min (>60); GFR (African American) 68 ML/MIN (>60); Globulin 3.1 g/dL (1.3-3.2); Glucose 175 mg/dl (74-100); Magnesium 1.8 mg/dl (1.6-2.3); Potassium 4.4 mmoL/L (3.5-5.1); Sodium 139 mmol/L (136-145); Total Protein,Serum 7.7 g/dl (6.3-8.2)
[2021-04-07 13:47] LABS: VBG Base Excess 1.6 mmol/L (-2.4-2.3); VBG HCO3 27.1 mmol/L (23-30); VBG Oxygen Saturation 97.7 % (50-70); VBG PCO2 49.1 mmol/L (35-51); VBG PH 7.36 mmol/L (7.31-7.41); VBG Total CO2 28.6 mmol/L (23-27)
--- NOTE | 2021-04-07 13:51 | PC.NURSE ---
placed pt on 1 hour continuous neb treatment with albutrol. vicente aware
--- NOTE | 2021-04-07 14:00 | PC.NURSE ---
PT UPDATED ON PLAN OF CARE
--- NOTE | 2021-04-07 15:00 | PC.NURSE ---
PT STATES FEELS LIKE SYMPTOMS ARE IMPROVING WITH NEB TXS
== END 2021-04-07 16:54 | disposition home or self-care (01) ==
PROVIDERS: Emergency Provider Emergency Medicine; PCP Physician Assistant
DX: J45.901 Unspecified asthma with (acute) exacerbation (principal); K21.9 Gastro-esophageal reflux disease without esophagitis
CPT/HCPCS: 71046; 80053; 82803; 83735; 85025; 85378; 96365; 96375; 99282

== ENCOUNTER → 2021-04-10 22:39 | Outpatient (CLI) | payer BC, MEDICAID, SELFPAY | PROVIDERS: Visit Provider Physician Assistant | DX: R05.9 Cough, unspecified (principal); Z20.822 Contact with and (suspected) exposure to COVID-19 | CPT/HCPCS: C9803; U0003; U0005 ==

== ENCOUNTER 2021-04-20 12:30 | Emergency (ER) | payer BC, MEDICAID, SELFPAY ==
[2021-04-20 13:29] VITALS: BP 121/64; PULSE 91; RESP 18; TEMP 36.9; O2SAT 97; BMI 58.2
--- NOTE | 2021-04-20 13:30 | HMH.EDUTC ---
[facility] [place] Disposition Clinical Impression: Low back pain Qualifiers: Chronicity: unspecified Back pain laterality: left Sciatica presence: without sciatica Qualified Code(s): M54.50 - Low back pain, unspecified Thoracic back pain Qualifiers: Chronicity: unspecified Back pain laterality: midline Qualified Code(s): M54.6 - Pain in thoracic spine Disposition: Home, Self-Care Condition on Discharge: Good Instructions: Low Back Pain, DI for Low Back Pain, DI for Thoracic Back Pain, Thoracic Back Pain Additional Instructions: Go home and rest. It would be best if you rested tomorrow too. No heavy lifting. No twisting. Take the oral medications as directed. The muscle relaxer (cyclobenzaprine--Flexeril) will make you drowsy, so don't drive or operate heavy machinery after taking it. Don't start the oral steroids (medrol dose pack) until tomorrow, since you had the shots in here today. Follow up with your regular doctor. GO TO THE ER FOR ANY WORSENING SYMPTOMS OR CONCERN, ESPECIALLY BOWEL OR BLADDER ISSUES, SADDLE AREA NUMBNESS, FEVER, ETC Prescriptions: Cyclobenzaprine HCl [Cyclobenzaprine 10mg Tab] 10 mg PO BIDP PRN #20 tab PRN Reason: Muscle Spasm Transmission Status: Received by [facility] methylPREDNISolone [Medrol] 4 mg PO DIRECTED 6 Days #21 packet Transmission Status: Received by [facility] Referrals: Jamilah Severino PA [Primary Care Provider] - Forms: Work/School Release Time of Disposition: 14:13 Medical Decision Making - Medical Records Medical records reviewed: No: I reviewed the patient's medical records. - Obed Inquiry Pt receiving controlled substance: No Vital Signs: 04/20/21 13:29 04/20/21 14:23 Temperature 98.4 F 98.4 F Temperature Source Oral Pulse Rate 91 H Pulse Rate [Left] 91 H Respiratory Rate 18 18 Blood Pressure 121/64 Blood Pressure [Right Arm] 121/64 Blood Pressure Mean [Right Arm] 83 02 Sat by Pulse Oximetry 97 - Lab Data Lab results reviewed: Yes: I reviewed the patient's lab results. Orders (Tests/Meds): ED MEDICATIONS Discontinued Medications Generic Name Dose Route Start Last Admin Trade Name Freq PRN Reason Stop Dose Admin Ketorolac Tromethamine 30 mg 04/20/21 13:47 04/20/21 14:22 Ketorolac 60mg/2ml Vial IM 04/20/21 13:48 30 mg ONCE ONE Administration Methylprednisolone Sodium Succinate 125 mg 04/20/21 13:47 04/20/21 14:22 Methylprednisolone Sod Succ 125mg Vial IM 04/20/21 13:48 125 mg ONCE ONE Administration [facility] [place] HPI - General Stated complaint: back pain, no recent ao Time Seen by Provider: 04/20/21 13:30 - History of Present Illness Provider Complaint: She c/o lower and middle back pain for the past 3 days. She has a history of flare ups like this. She denies any known injury. She has not fallen recently. She denies any bowel or bladder issues. - Related Data Home Medications Medication Instructions Recorded Confirmed metoprolol succinate 50 mg 50 mg PO DAILY tab 08/13/19 04/10/21 tablet,extended release 24 hr Previous Rx's Medication Instructions Recorded amlodipine 5 mg tablet See Rx Instructions .ROUTE 12/30/19 .COMPLEX #90 tab ergocalciferol (vitamin D2) 1,250 1,250 mcg PO QWEEK #12 cap 01/03/20 mcg (50,000 unit) capsule aspirin 81 mg tablet,delayed 81 mg PO DAILY #30 tab 02/03/20 release fluticasone 100 mcg-salmeterol 50 See Rx Instructions .ROUTE 02/03/20 mcg/dose blistr powdr for .COMPLEX #60 disk inhalation montelukast 10 mg tablet 10 mg PO DAILY #90 tab 02/03/20 omeprazole 40 mg capsule,delayed See Rx Instructions .ROUTE 02/03/20 release .COMPLEX #90 cap liraglutide (weight loss) 3 mg/0.5 See Rx Instructions .ROUTE 03/27/20 mL (18 mg/3 mL) subcut pen injector .COMPLEX #15 syringe loratadine 10 mg tablet See Rx Instructions .ROUTE 05/29/20 .COMPLEX #90 tab spironolactone 25 mg tablet See Rx Instructions .ROUTE
[2021-04-20 14:23] VITALS: BP 121/64; PULSE 91; RESP 18; TEMP 36.9
== END 2021-04-20 14:23 | disposition home or self-care (01) ==
PROVIDERS: Emergency Provider Nurse Practitioner Family; PCP Physician Assistant
DX: M54.50 Low back pain, unspecified (principal); M54.6 Pain in thoracic spine; K21.9 Gastro-esophageal reflux disease without esophagitis; I10 Essential (primary) hypertension; J45.909 Unspecified asthma, uncomplicated; Z79.899 Other long term (current) drug therapy; Z88.8 Allergy status to other drugs, medicaments and biological substances
CPT/HCPCS: 96372; 99202; G0463

== ENCOUNTER → 2021-05-17 16:00 | Outpatient (CLI) | payer BC, MEDICAID, SELFPAY | PROVIDERS: Visit Provider Nurse Practitioner Family | DX: R82.90 Unspecified abnormal findings in urine (principal); B96.1 Klebsiella pneumoniae [K. pneumoniae] as the cause of diseases classified elsewhere | CPT/HCPCS: 87086; 87088; 87186 ==

== ENCOUNTER → 2021-08-07 14:50 | Outpatient (CLI) | payer BC, MEDICAID, SELFPAY ==
[2021-08-07 15:15] VITALS: PULSE 82
== END ==
PROVIDERS: PCP Physician Assistant; Visit Provider Physician Assistant
DX: R06.09 Other forms of dyspnea (principal)
CPT/HCPCS: 94060

== ENCOUNTER 2021-08-13 12:49 | Emergency (ER) | payer BC, MEDICAID, SELFPAY ==
[2021-08-13 14:20] VITALS: BP 141/91; PULSE 77; RESP 19; TEMP 36.8; O2SAT 95; BMI 58.2
--- NOTE | 2021-08-13 14:39 | HMH.EDUTC ---
[facility] [place] Impression: Cellulitis Qualifiers: Site of cellulitis: extremity Site of cellulitis of extremity: upper extremity Laterality: left Qualified Code(s): L03.114 - Cellulitis of left upper limb Disposition: Home, Self-Care Condition on Discharge: Good Instructions: Cellulitis, DI for Insect Bites and Stings, Cephalexin, Mupirocin Additional Instructions: *Start antibiotic(s) immediately and be sure to take as ordered for the FULL length of time although you may be feeling better or start to see improvement in the next 24-48 hours *Monitor closely. Outlined redness so that you can monitor easier. Follow up immediately for new or worsening symptoms including but not limited to redness, swelling, streaking from site fever or chills. *Warm compress 15 minutes 3-4 times day *Never squeeze or pop these on your own. Seek immediate medical attention next time this occurs *Monitor Temp. Tylenol every 4 hours as needed and ibuprofen every 6 hours as needed (as long as your primary care doctor has told you that it is ok to take both. For fever, aches, pain. ER if no less that 101 despite Tylenol and ibuprofen Follow up with your family doctor/primary care physician in the next 48-72 hours if no improvement Prescriptions: cephALEXin [cephALEXin 500mg capsule*] 500 mg PO Q6H 7 Days #28 cap Transmission Status: Pending to [facility] methylPREDNISolone [Medrol 4mg tab] 4 mg PO DIRECTED #21 tab Transmission Status: Pending to [facility] Mupirocin Calcium [Mupirocin 2% Cream 15gm] 1 applicatio TP TID 10 Days #15 gm Transmission Status: Pending to [facility] Referrals: Jamilah Severino PA [Primary Care Provider] - Time of Disposition: 14:46 Medical Decision Making - Obed Inquiry Pt receiving controlled substance: No Obed was queried for this patient: No Vital Signs: 08/13/21 14:20 Temperature 98.3 F Temperature Source Oral Pulse Rate [Right Brachial] 77 Respiratory Rate 19 Blood Pressure [Right Arm] 141/91 H Blood Pressure Mean [Right Arm] 107 Blood Pressure Source [Right Arm] Automatic Cuff Blood Pressure Position [Right Arm] Sitting 02 Sat by Pulse Oximetry 95 Oxygen Delivery Method Room Air Medical Decision Narrative: Patient states that she has taken cephalexin and Medrol pack in the past without complications or reactions [facility] [place] - General Stated complaint: insect bite, swelling Time Seen by Provider: 08/13/21 14:39 Mode of Arrival: Ambulatory Source of Information: Patient Limitations: No Limitations Description of Symptoms (Recalled from Triage Doc. by RN): PATIENT C/O BUG BITE TO LEFT BICEP SINCE FRIDAY. PATIENT REPORTS THAT AREA IS TENDER TO TOUCH AND HURTS WITH MOVEMENT HEENT Symptoms (Recalled from RN notes): No Resp Symptoms (Recalled from RN notes): No Skin Symptoms (Recalled from RN notes): Yes MS Symptoms (Recalled from RN notes): No Functional Status (Recalled from RN notes): WNL - History of Present Illness Provider Complaint: Patient states that she was bitten several times by a flying insect on Friday on her left elbow area State that now area is red, warm itching and feels sore to the touch and swollen States that she was worried that it was getting infected so she came in - Related Data Previous Rx's Medication Instructions Recorded amlodipine 5 mg tablet See Rx Instructions .ROUTE 12/30/19 .COMPLEX #90 tab ergocalciferol (vitamin D2) 1,250 1,250 mcg PO QWEEK #12 cap 01/03/20 mcg (50,000 unit) capsule aspirin 81 mg tablet,delayed 81 mg PO DAILY #30 tab 02/03/20 release montelukast 10 mg tablet 10 mg PO DAILY #90 tab 02/03/20 omeprazole 40 mg capsule,delayed See Rx Instructions .ROUTE 02/03/20 release .COMPLEX #90 cap loratadine 10 mg tablet See Rx Instructions .ROUTE 05/29/20 .COMPLEX #90 tab albuterol sulfate 90 mcg/actuation See Rx Instructions .ROUTE 08/22/20 aerosol inhaler .COMPLEX #18 inhale
[2021-08-13 14:48] VITALS: BP 141/91; PULSE 77; RESP 19; TEMP 36.8; O2SAT 95
== END 2021-08-13 14:54 | disposition home or self-care (01) ==
PROVIDERS: Emergency Provider Nurse Practitioner; PCP Physician Assistant
DX: L03.114 Cellulitis of left upper limb (principal); S50.362A Insect bite (nonvenomous) of left elbow, initial encounter; W57.XXXA Bitten or stung by nonvenomous insect and other nonvenomous arthropods, initial encounter; I10 Essential (primary) hypertension; K21.9 Gastro-esophageal reflux disease without esophagitis; Z88.5 Allergy status to narcotic agent
CPT/HCPCS: 99212; G0463

== ENCOUNTER → 2021-09-01 10:44 | Outpatient (CLI) | payer BC, MEDICAID, SELFPAY | PROVIDERS: PCP Physician Assistant; Visit Provider Internal Medicine Pulmonary Disease | DX: G47.33 Obstructive sleep apnea (adult) (pediatric) (principal) | CPT/HCPCS: 94762 ==

== ENCOUNTER 2021-09-08 23:09 | Emergency (ER) | payer BC, MEDICAID, SELFPAY ==
[2021-09-08 23:10] VITALS: BP 171/90; PULSE 96; RESP 20; TEMP 36.9; O2SAT 96; BMI 60.2
--- NOTE | 2021-09-08 23:34 | ECG_ITS ---
APPROVED REPORT Exam: Resting ECG HR:83 bpm ECG Measurements Heart Rate 83 AXES [place] 204 P 76 QRSd 94 QRS 28 QT 343 T 80 QTc 383 Conclusion SINUS RHYTHM LOW QRS VOLTAGE IN PRECORDIAL LEADS [QRS DEFLECTION < 1.0 mV IN CHEST LEADS] INCOMPLETE RIGHT BUNDLE BRANCH BLOCK [90+ ms QRS DURATION, TERMINAL R IN V1/V2, 40+ ms S IN I/aVL/V4/V5/V6] BORDERLINE ECG UNCONFIRMED REPORT Electronically signed by : Ghassan Menjivar MD 09/09/2021 18:42:18
--- NOTE | 2021-09-08 23:35 | CT_ITS ---
PROCEDURE INFORMATION: Exam: CT Cervical Spine Without Contrast Exam date and time: 09/09/2021 12:04 AM Age: 61 years old Clinical indication: Neck pain and other: RT arm pain; Additional info: Neck and RT arm pain no injury TECHNIQUE: Imaging protocol: Computed tomography of the cervical spine without contrast. Radiation optimization: All CT scans at this facility use at least one of these dose optimization techniques: automated exposure control; mA and/or kV adjustment per patient size (includes targeted exams where dose is matched to clinical indication); or iterative reconstruction. COMPARISON: CR XR CHEST 2V 04/07/2021 12:12 PM FINDINGS: Bones/joints: No acute fracture. Normal alignment. Discs/Spinal canal/Neural foramina: No significant disc protrusion. No severe spinal canal stenosis. No significant neural foraminal narrowing. Lungs: Lung apices are normal. Soft tissues: Unremarkable. IMPRESSION: No acute findings.
--- NOTE | 2021-09-09 00:11 | PC.NURSE ---
Pt back from RAD
--- NOTE | 2021-09-09 00:13 | HMH.EDGENADL ---
ED Disposition Clinical Impression: Cervical radicular pain Disposition: Home, Self-Care Condition on Discharge: Good Instructions: DI for Acute Pain -- Adult Additional Instructions: use meds and call pcp friday Prescriptions: predniSONE [Prednisone 20mg Tab] 20 mg PO BID #10 tab Transmission Status: Received by [id number] Referrals: Jamilah Severino PA [Primary Care Provider] - - Critical Care Critical Care Time: No Attestation: On 09/08/21, the high probability of a clinically significant, sudden or life threatening deterioration of the following system(s) required my full and direct attention, intervention and personal management. The time I documented below is in addition to time spent performing reported procedures but includes the following listed in this critical care notation. Medical Decision Making - Medical Records Medical records reviewed: Yes: I reviewed the patient's medical records. - Obed Inquiry Pt receiving controlled substance: No Vital Signs: 09/08/21 23:10 Temperature 98.5 F Temperature Source Oral Pulse Rate [Left] 96 H Respiratory Rate 20 Blood Pressure [Right Arm] 171/90 H Blood Pressure Mean [Right Arm] 117 02 Sat by Pulse Oximetry 96 Oxygen Delivery Method Room Air - Lab Data Lab results reviewed: Yes: I reviewed the patient's lab results. Lab Results 09/08/21 23:55: ESR 49 H 09/09/21 00:00: WBC 6.8, RBC 4.22, Hgb 12.5, Hct 38.4, MCV 90.8, MCH 29.7, MCHC 32.7, RDW 15.0, Plt Count 239, MPV 8.1, Neut % (Auto) 63.7, Lymph % (Auto) 23.8, [place] % (Auto) 4.7, Eos % (Auto) 5.7, Baso % (Auto) 1.9, Neut # (Auto) 4.3, Lymph # (Auto) 1.6, [place] # (Auto) 0.3, Eos # (Auto) 0.4, Baso # (Auto) 0.1 09/09/21 00:00: Sodium 139, Potassium 4.7, Chloride 102, Carbon Dioxide 32 H, Anion Gap 9.7, BUN 26 H, Creatinine 1.20 H, Estimated Creat Clear 44, Estimated GFR 46 L, Est GFR ( Amer) 55 L, Glucose 187 H, Calcium 9.4, Total Bilirubin 0.2, AST 34, ALT 48, Alkaline Phosphatase 91, Troponin I < 0.01, Total Protein 6.7, Albumin 3.9, Globulin 2.8, Albumin/Globulin Ratio 1.4 Result diagrams: 09/09/21 00:00 09/09/21 00:00 Orders (Tests/Meds): ED MEDICATIONS Generic Name Dose Route Start Last Admin Trade Name Freq PRN Reason Stop Dose Admin Sodium Chloride 1,000 mls @ 999 mls/hr 09/08/21 23:45 09/08/21 23:45 Sod Chlor 0.9% 1000ml Bag IV 09/09/21 00:45 999 mls/hr .Q1H1M RANDY Administration Discontinued Medications Generic Name Dose Route Start Last Admin Trade Name Freq PRN Reason Stop Dose Admin Hydromorphone HCl 1 mg 09/09/21 01:23 Hydromorphone 2mg/Ml Syringe IV 09/09/21 01:24 ONCE ONE Ketorolac Tromethamine 30 mg 09/08/21 23:35 09/08/21 23:44 Ketorolac 30mg/Ml Vial IV 09/08/21 23:36 30 mg ONCE ONE Administration Methylprednisolone Sodium Succinate 125 mg 09/08/21 23:35 09/08/21 23:44 Methylprednisolone Sod Succ 125mg Vial IV 09/08/21 23:36 125 mg ONCE ONE Administration Ondansetron HCl 4 mg 09/09/21 01:24 Ondansetron 4mg/2ml Vial IV 09/09/21 01:25 ONCE ONE Tramadol HCl 1 packet 09/09/21 01:24 Tramadol 50mg Tab Take Home Pack (10) PO 09/09/21 01:25 ONCE ONE ORDERS Category Date Time Status Troponin I Q3H Lab 09/09/21 02:45 Ordered Troponin I Q3H Lab 09/09/21 05:45 Ordered - CT Data CT Scan: C-Spine Time Received: 01:[address] Reviewed: Yes: I have viewed the radiologist's interpretation Preliminary Findings: No Fracture Seen - ECG Data Tracing #1 Arrhythmias present: sinus ruben Ischemic changes: non-specific ST-T wave changes - TE Score for Non-Stemi Age of Patient: 60-69 years old Heart Rate: 90-109 bpm Systolic Blood Pressure: 160-199 mmHg Serum Creatinine: 0.40-0.79 mg/dl CHF [place] Class: I-No CHF Other Risk Factors: None Non-Stemi Risk Score: 87 General Adult HPI - General Chief complaint: PAIN Stated complaint: Pain in right arm, no injur
[2021-09-09 00:17] LABS: Basophils # 0.1 K/mm3 (0-0.2); Basophils % 1.9 % (0.1-2.0); Eosinophils # 0.4 K/mm3 (0.0-0.4); Eosinophils % 5.7 % (0.1-12.0); Hematocrit 38.4 % (37.0-47.0); Hemoglobin 12.5 g/dL (12.2-16.2); Lymphocytes # 1.6 K/mm3 (0.7-4.5); Lymphocytes % 23.8 % (10-50); Mean Corpuscular HGB Conc 32.7 g/dL (31.8-35.4); Mean Corpuscular Hemoglobin 29.7 pg (27.0-31.2); Mean Corpuscular Volume 90.8 fl (81-99); Mean Platelet Volume 8.1 fl (7.4-10.4); Monocytes # 0.3 K/mm3 (0.1-1.0); Monocytes % 4.7 % (1.7-9.3); Neutrophils # 4.3 K/mm3 (1.8-7.8); Neutrophils % 63.7 % (37.0-80.0); Platelet Count 239 K/mm3 (142-424); Red Blood Count 4.22 M/mm3 (4.20-5.40); White Blood Count 6.8 K/mm3 (4.8-10.8)
[2021-09-09 00:32] LABS: Alanine Aminotransferase 48 U/L (12-78); Albumin Level 3.9 g/dl (3.5-5.0); Albumin/Globulin Ratio 1.4 (1.1-1.8); Alkaline Phosphatase 91 U/L (38-126); Anion Gap 9.7 mEq/L (5-15); Aspartate Amino Transferase 34 U/L (14-36); Bilirubin,Total 0.2 mg/dl (0.2-1.3); Blood Urea Nitrogen 26 mg/dl (7-17); Calcium 9.4 mg/dl (8.4-10.2); Carbon Dioxide 32 mmol/L (22.0-30.0); Chloride 102 mmol/L (98-107); Creatinine Clearance Estimated 44 mL/min (50-200); Estimated Glomerular Filt Rate 46 ml/min (>60); GFR (African American) 55 ML/MIN (>60); Globulin 2.8 g/dL (1.3-3.2); Glucose 187 mg/dl (74-100); Potassium 4.7 mmoL/L (3.5-5.1); Sodium 139 mmol/L (136-145); Total Protein,Serum 6.7 g/dl (6.3-8.2)
[2021-09-09 00:44] LABS: Troponin I < 0.01 ng/ml (0.00-0.034)
[2021-09-09 01:24] LABS: Erythrocyte Sedimentation Rate 49 mm/hr (0-30)
[2021-09-09 02:17] VITALS: BP 171/90; PULSE 96; RESP 16; TEMP 36.9; O2SAT 93
== END 2021-09-09 02:20 | disposition home or self-care (01) ==
PROVIDERS: Emergency Provider Emergency Medicine; PCP Physician Assistant
DX: M54.12 Radiculopathy, cervical region (principal); M79.601 Pain in right arm; M25.569 Pain in unspecified knee; R00.1 Bradycardia, unspecified; I10 Essential (primary) hypertension; K21.9 Gastro-esophageal reflux disease without esophagitis; M19.90 Unspecified osteoarthritis, unspecified site; G47.00 Insomnia, unspecified; G25.81 Restless legs syndrome; J45.909 Unspecified asthma, uncomplicated; Z79.1 Long term (current) use of non-steroidal anti-inflammatories (NSAID); Z79.51 Long term (current) use of inhaled steroids; Z79.82 Long term (current) use of aspirin; Z79.899 Other long term (current) drug therapy; Z88.5 Allergy status to narcotic agent; Z88.8 Allergy status to other drugs, medicaments and biological substances; Z96.653 Presence of artificial knee joint, bilateral; Z82.49 Family history of ischemic heart disease and other diseases of the circulatory system; Z80.9 Family history of malignant neoplasm, unspecified; Z83.438 Family history of other disorder of lipoprotein metabolism and other lipidemia
CPT/HCPCS: 72125; 80053; 84484; 85025; 85651; 93005; 96361; 96374; 96375; 99285; J2405

== ENCOUNTER → 2021-10-03 12:48 | Outpatient (CLI) | payer BC, MEDICAID, SELFPAY ==
[2021-10-03 13:35] VITALS: PULSE 101; PULSE 96
--- NOTE | 2021-10-03 14:22 | CT_ITS ---
FINAL REPORT CLINICAL HISTORY: lung cancer screening former smoker quit 16 years ago. 2ppd x6 years when smoking FINDINGS: Low-Dose Chest CT CTDI vol (mGy): 2.90 DLP (mGy-cm): 91.95 Axial images were obtained from the lung apex to the mid abdomen by computed tomography. Low-dose protocol was utilized. FINDINGS: CHEST: There is no axillary adenopathy. There are calcified precarinal and bilateral hilar lymph nodes. The heart is proper size. There is no pericardial or pleural effusion. Limited images of the upper abdomen are unremarkable. Lung window images demonstrate no suspicious infiltrate or nodule. There is a calcified granuloma in the right lower lobe. IMPRESSION: Lung RADS category 1. Recommend 12 month follow-up low-dose chest CT. Reviewed, Interpreted and Dictated by Abad Lew MD Transcribed by Twin Nguyen Authenticated and [facility]
[2021-10-03 15:11] LABS: Basophils # 0.1 K/mm3 (0-0.2); Basophils % 0.9 % (0.1-2.0); Eosinophils # 0.4 K/mm3 (0.0-0.4); Eosinophils % 5.5 % (0.1-12.0); Hematocrit 42.9 % (37.0-47.0); Hemoglobin 13.4 g/dL (12.2-16.2); Lymphocytes # 2.4 K/mm3 (0.7-4.5); Lymphocytes % 33.9 % (10-50); Mean Corpuscular HGB Conc 31.1 g/dL (31.8-35.4); Mean Corpuscular Hemoglobin 29.4 pg (27.0-31.2); Mean Corpuscular Volume 94.4 fl (81-99); Mean Platelet Volume 7.8 fl (7.4-10.4); Monocytes # 0.3 K/mm3 (0.1-1.0); Monocytes % 4.4 % (1.7-9.3); Neutrophils # 3.9 K/mm3 (1.8-7.8); Neutrophils % 55.2 % (37.0-80.0); Platelet Count 295 K/mm3 (142-424); Red Blood Count 4.54 M/mm3 (4.20-5.40); Red Cell Distribution Width 15.2 % (11.5-17.5)
[2021-10-07 16:37] LABS: D001-IgE D pteronyssinus <0.10 kU/L (Class 0); D002-IgE D farinae 0.12 kU/L (Class 0/I); E001-IgE Cat Dander <0.10 kU/L (Class 0); E005-IgE Dog Dander <0.10 kU/L (Class 0); E072-IgE Mouse Urine <0.10 kU/L (Class 0); G002-IgE Bermuda Grass 0.17 kU/L (Class 0/I); G006-IgE Timothy Grass 0.16 kU/L (Class 0/I); I006-IgE Cockroach, German 0.26 kU/L (Class 0/I); Immunoglobulin E, Total 1746 IU/mL (6-495); M001-IgE Penicillium chrysogen <0.10 kU/L (Class 0); M002-IgE Cladosporium herbarum <0.10 kU/L (Class 0); M003-IgE Aspergillus fumigatus <0.10 kU/L (Class 0); M006-IgE Alternaria alternata <0.10 kU/L (Class 0); T001-IgE Maple/Box Elder 0.17 kU/L (Class 0/I); T003-IgE Common Silver Birch 0.17 kU/L (Class 0/I); T006-IgE Cedar, Mountain 0.18 kU/L (Class 0/I); T008-IgE Elm, American 0.16 kU/L (Class 0/I); T010-IgE Walnut 0.18 kU/L (Class 0/I); T011-IgE Maple Leaf Sycamore 0.17 kU/L (Class 0/I); T014-IgE Cottonwood 0.18 kU/L (Class 0/I); T015-IgE Ash, White 0.18 kU/L (Class 0/I); T022-IgE Pecan, Hickory 0.17 kU/L (Class 0/I); T070-IgE White Mulberry 0.12 kU/L (Class 0/I); W001-IgE Ragweed, Short 0.24 kU/L (Class 0/I); W011-IgE Thistle, Russian 0.17 kU/L (Class 0/I); W014-IgE Pigweed, Common 0.17 kU/L (Class 0/I); W018-IgE Sheep Sorrel 0.18 kU/L (Class 0/I)
== END ==
PROVIDERS: PCP Physician Assistant; Visit Provider Internal Medicine Pulmonary Disease
DX: Z87.891 Personal history of nicotine dependence (principal); Z12.2 Encounter for screening for malignant neoplasm of respiratory organs; J45.909 Unspecified asthma, uncomplicated
CPT/HCPCS: 36415; 71271; 82785; 85025; 86003; 94060; 94618; 94640; 94727; 94729

== ENCOUNTER → 2021-10-16 16:43 | Outpatient (CLI) | payer BC, MEDICAID, SELFPAY | PROVIDERS: PCP Physician Assistant; Visit Provider Internal Medicine Pulmonary Disease | DX: R06.02 Shortness of breath (principal) | CPT/HCPCS: 94762 ==

== ENCOUNTER 2021-11-18 20:50 | Emergency (ER) | payer BC, MEDICAID, SELFPAY ==
[2021-11-18 20:51] VITALS: BP 162/85; PULSE 93; RESP 18; TEMP 36.9; O2SAT 97; BMI 59.9
[2021-11-18 21:59] VITALS: BP 162/85; PULSE 94; O2SAT 98
[2021-11-18 22:04] VITALS: BMI 59.9
--- NOTE | 2021-11-18 22:04 | XR_ITS ---
PROCEDURE INFORMATION: Exam: XR Right Elbow Exam date and time: 11/18/2021 10:38 PM Age: 61 years old Clinical indication: Injury or trauma; Fall; Blunt trauma (contusions or hematomas); Elbow; Right TECHNIQUE: Imaging protocol: Radiologic exam of the Right elbow. Views: 3 or more views. COMPARISON: No relevant prior studies available. FINDINGS: Bones/joints: Normal. Soft tissues: Normal. IMPRESSION: No acute findings.
--- NOTE | 2021-11-18 22:04 | XR_ITS ---
PROCEDURE INFORMATION: Exam: XR Bilateral Hips Exam date and time: 11/18/2021 10:30 PM Age: 61 years old Clinical indication: Injury or trauma; Fall; Blunt trauma (contusions or hematomas); Bilateral; Hip TECHNIQUE: Imaging protocol: Radiologic exam of the bilateral hips. Views: 2 views of hips with pelvis when performed. COMPARISON: No relevant prior studies available. FINDINGS: Bones/joints: Unremarkable. No acute fracture. Soft tissues: Unremarkable. IMPRESSION: No acute findings.
--- NOTE | 2021-11-18 22:04 | XR_ITS ---
PROCEDURE INFORMATION: Exam: XR Left Knee Exam date and time: 11/18/2021 10:32 PM Age: 61 years old Clinical indication: Injury or trauma; Fall; Blunt trauma; Left; Prior surgery; Surgery date: 6+ months; Surgery type: Total knee replacement 2018 TECHNIQUE: Imaging protocol: Radiologic exam of the Left knee. Views: 3 views. COMPARISON: CR [id number] [id number] 05/09/2015 1:40 PM FINDINGS: Bones/joints: Total-knee arthroplasty device in place. No hardware complication. No acute fracture or dislocation. Soft tissues: Normal. IMPRESSION: No acute findings.
--- NOTE | 2021-11-18 22:04 | XR_ITS ---
PROCEDURE INFORMATION: Exam: XR Chest Exam date and time: 11/18/2021 10:28 PM Age: 61 years old Clinical indication: Injury or trauma; Fall; Blunt trauma (contusions or hematomas) TECHNIQUE: Imaging protocol: Radiologic exam of the chest. Views: 4 or more views. COMPARISON: CR XR CHEST 2V 04/07/2021 12:12 PM FINDINGS: Lungs: Unremarkable. No consolidation. Pleural spaces: Unremarkable. No pleural effusion. No pneumothorax. Heart/Mediastinum: Unremarkable. No cardiomegaly. Bones/joints: Unremarkable. IMPRESSION: No acute findings.
[2021-11-18 22:54] VITALS: BP 128/69; PULSE 97; O2SAT 95
--- NOTE | 2021-11-18 23:58 | HMH.EDFALL ---
Discharge Plan Disposition Chief Complaint: Fall Prescriptions Prescriptions: No Action montelukast [Singulair] 10 mg tablet 10 mg PO QDAY 90 Days Qty: 90 3RF Nucala 100 mg/mL auto-injector 100 mg SQ Q4W Qty: 1 2RF gabapentin [Neurontin] 100 mg capsule 100 mg PO Q8H PRN (Reason: nerve pain) Qty: 90 2RF cyclobenzaprine 10 mg tablet 10 mg PO HS Qty: 30 2RF tramadol 50 mg tablet 50 mg PO Q6H PRN (Reason: pain) Qty: 60 0RF fluticasone propion-salmeterol [Advair Diskus] 250-50 mcg/dose blister with device 1 inh IH BID 90 Days Qty: 180 3RF Spiriva Respimat 2.5 mcg/actuation mist 2 inh IH DAILY 90 Days Qty: 4 3RF albuterol sulfate 90 mcg/actuation HFA aerosol inhaler 2 inh IH Q6H PRN (Reason: shortness of breath or wheezing) 90 Days Qty: 8.5 3RF ipratropium-albuterol 0.5 mg-3 mg(2.5 mg base)/3 mL solution for nebulization 3 ml IH QID PRN (Reason: shortness of breath or wheezing) 90 Days Qty: 360 3RF pregabalin [Lyrica] 50 mg capsule 50 mg PO Q8H Qty: 30 0RF ergocalciferol (vitamin D2) 1,250 mcg (50,000 unit) capsule 1,250 mcg PO QWEEK Qty: 12 0RF aspirin [Adult Low Dose Aspirin] 81 mg tablet,delayed release (DR/EC) 81 mg PO DAILY Qty: 30 2RF (DME) pen needle, diabetic [Lite Touch Insulin Pen [place]] 31 gauge x 5/16 needle See Rx Instructions .Route Qty: 100 2RF Rx Instructions: As directed (DME) Monoject Safety Syringes 3 mL 22 gauge x 1 1/2 syringe See Rx Instructions .Route Qty: 4 0RF Rx Instructions: Use once monthly for Vit B12 injections cyanocobalamin (vitamin B-12) 1,000 mcg/mL solution 1,000 mcg IM DIRECTED Qty: 30 4RF Rx Instructions: 1 ml daily X 1 week, then 1 ml weekly X 1 month, then 1 ml monthly diclofenac sodium 75 mg tablet,delayed release (DR/EC) See Rx Instructions .ROUTE .COMPLEX Qty: 90 3RF Dose Instruction: TAKE 1 TABLET BY MOUTH EVERY DAY Rx Instructions: TAKE 1 TABLET BY MOUTH EVERY DAY spironolactone 25 mg tablet See Rx Instructions .ROUTE .COMPLEX Qty: 60 3RF Dose Instruction: TAKE 1 TABLET BY MOUTH TWICE A DAY Rx Instructions: TAKE 1 TABLET BY MOUTH TWICE A DAY. Needs follow up appt for refills. Last seen 08/10 ropinirole 1 mg tablet 1 mg PO HS Qty: 90 2RF famotidine 20 mg tablet See Rx Instructions .ROUTE .COMPLEX Qty: 90 2RF Dose Instruction: TAKE 1 TABLET BY MOUTH EVERY DAY FOR GERD Rx Instructions: TAKE 1 TABLET BY MOUTH EVERY DAY FOR GERD fluticasone propionate [Flonase Allergy Relief] 50 mcg/actuation spray,suspension 1 spray NS DAILY Qty: 16 2RF Rx Instructions: administer into each nostril lisinopril-hydrochlorothiazide 20-25 mg tablet See Rx Instructions .ROUTE .COMPLEX Qty: 90 2RF Dose Instruction: TAKE 1 TABLET BY MOUTH EVERY DAY Rx Instructions: TAKE 1 TABLET BY MOUTH EVERY DAY albuterol sulfate 2.5 MG/NEB solution for nebulization 2.5 mg IH TID Qty: 180 0RF Referrals Follow up/Referrals: Jamilah Severino PA [Primary Care Provider] - See instructions Clinical Impressions Clinical Impression: Contusion of knee, left, Contusion of elbow, right, Fall Instructions Patient Instructions: DI for Contusion Discharge ED Provider: Freddie Thompson Fall HPI General Chief Complaint: Fall Stated Complaint: AO11/18@1900@HOME FELL INJURED bOTH KNEE,R ELBOW,H Time Seen by Provider: 11/18/21 23:59 Mode of Arrival: Ambulatory Source of Information: Patient and Medical Record Limitations: No Limitations Description of Symptoms (Recalled from ER Triage Doc. by RN): pt states was sitting in lawn chair and chair broke. pt fell to ground with lt knee behind her. pt c/o lt elbow, lt knee, bilateral hip pain. History of Present Illness HPI Narrative: fall with knee and elbow and hip pain w/o neck pain or loc MD complaint: fall Onset (ago): hour(s) Fall from: chair Place fall occurred:
[2021-11-19 00:27] VITALS: BP 121/76; PULSE 87; RESP 18; TEMP 36.8; O2SAT 98
== END 2021-11-19 00:30 | disposition home or self-care (01) ==
PROVIDERS: Emergency Provider Emergency Medicine; PCP Physician Assistant
DX: S80.02XA Contusion of left knee, initial encounter (principal); S80.01XA Contusion of right knee, initial encounter; S50.01XA Contusion of right elbow, initial encounter; S60.221A Contusion of right hand, initial encounter; R06.02 Shortness of breath; M25.552 Pain in left hip; I10 Essential (primary) hypertension; M19.90 Unspecified osteoarthritis, unspecified site; G62.9 Polyneuropathy, unspecified; G25.81 Restless legs syndrome; Z79.1 Long term (current) use of non-steroidal anti-inflammatories (NSAID); Z79.51 Long term (current) use of inhaled steroids; Z79.899 Other long term (current) drug therapy; Z88.5 Allergy status to narcotic agent; Z88.8 Allergy status to other drugs, medicaments and biological substances; W07.XXXA Fall from chair, initial encounter; Y92.009 Unspecified place in unspecified non-institutional (private) residence as the place of occurrence of the external cause
CPT/HCPCS: 71045; 73080; 73521; 73562; 99284

== ENCOUNTER → 2021-12-10 07:45 | Outpatient (CLI) | payer BC, MEDICAID, SELFPAY ==
[2021-12-10 20:42] LABS: Chol/HDL Ratio 4.2 (1-3.5); Cholesterol 162 mg/dl (140-200); HDL Cholesterol 39 mg/dl (40-60); Triglycerides 152 mg/dl (30-150); VLDL Cholesterol 30 mg/dL (0-40)
[2021-12-10 20:53] LABS: Direct LDL Cholesterol 86.25 mg/dL (100-129)
[2021-12-10 21:28] LABS: Hemoglobin A1C 6.3 % (4.0-6.0)
== END ==
PROVIDERS: PCP Physician Assistant; Visit Provider Physician Assistant
DX: Z00.00 Encounter for general adult medical examination without abnormal findings (principal); R73.09 Other abnormal glucose
CPT/HCPCS: 80061; 83036

== ENCOUNTER → 2021-12-14 14:14 | Outpatient (CLI) | payer BC, MEDICAID, SELFPAY ==
--- NOTE | 2021-12-14 14:14 | MM_ITS ---
PROCEDURE INFORMATION: Exam: Bilateral Screening 3D Mammography Exam date and time: 12/14/2021 2:14 PM Age: 61 years old Clinical indication: Screening examination TECHNIQUE: Imaging protocol: Bilateral Screening tomosynthesis and 2D mammography including computer-aided detection (CAD) when performed. COMPARISON: MAMMO SCREENING DIGITAL BILAT 02/02/2016 2:41 PM FINDINGS: MAMMOGRAPHY: Breast composition: The breasts are almost entirely fatty. Mass: None. Architectural distortion: None. Calcifications: No suspicious calcifications. Asymmetric density: None. Skin thickening: None. Axillary adenopathy: None. IMPRESSION: No mammographic evidence of malignancy. Annual screening is recommended unless otherwise clinically indicated. ASSESSMENT: BI-RADS Category 1: Negative
== END ==
PROVIDERS: PCP Physician Assistant; Visit Provider Physician Assistant
DX: Z12.31 Encounter for screening mammogram for malignant neoplasm of breast (principal)
CPT/HCPCS: 77063; 77067

== ENCOUNTER 2021-12-19 17:00 | Outpatient (RCR) | payer BC, MEDICAID, SELFPAY ==
--- NOTE | 2021-12-12 11:28 | HMH.PTOPEV ---
PT Outpatient Evaluation Rehab PT Outpatient Evaluation Start: 12/12/21 10:00 Freq: Status: Active Protocol: Document 12/12/21 10:00 PDESEROUX (Rec: 12/12/21 11:17 PDESEROUX [id number]) E-signed By Manish Kate, PT Outpatient Therapy Subjective History Subjective History Pt. is a 61 year old female who presents to [facility] in [place] for the initial evaluation this date( 12/12/21) w/ c's/o subacute and constant R-sided cervical/ RUE P!, tingling, and weakness of insidious onset 2 months ago that worsened last Friday(12/08/21) after picking up her grandchild. Pt. reports waking up one morning w/ symptoms of insidious onset 2 months ago when she first noticed it. Pt. then reports symptoms improved a little until last Friday() after picking up her grandchild. Pt. also reported having tingling into her RUE hand/digits with original insidious onset. Pt. denies having symptom into the LUE. Pt. reports symptoms worsen w/ lifting objects, operating the steering wheel, sweeping/ mopping, and sleeping. Pt. reports having some symptom relief w/ resting her RUE over her head, heat, and lidocaine rub. Recent diagnostic imaging(CT scan) negative per pt. report. Pt. denies having injections for current complaint. Pt. reports not having any symptom relief w/ OTC Tylenol nor prescribed Pregabalin, however, pt. reports just starting her Prednisone pack and stated it' s too early to notice any relief thus far. Pt. describes losing control of her RUE when symptoms are at its worse
== END 2022-01-22 06:45 | disposition home or self-care (01) ==
LOC: PT.CARL 17:00
PROVIDERS: PCP Physician Assistant; Visit Provider Physician Assistant
DX: M54.12 Radiculopathy, cervical region (principal); M25.511 Pain in right shoulder
CPT/HCPCS: 97012; 97110; 97140; 97163

== ENCOUNTER 2022-03-23 14:40 | Emergency (ER) | payer BC, MEDICAID, SELFPAY ==
[2022-03-23 16:07] VITALS: BP 113/54; PULSE 89; RESP 16; TEMP 36.9; O2SAT 92; BMI 54.1
--- NOTE | 2022-03-23 16:11 | XR_ITS ---
PROCEDURE INFORMATION: Exam: XR Chest Exam date and time: 03/23/2022 4:07 PM Age: 62 years old Clinical indication: Cough and shortness of breath; Additional info: Covid + TECHNIQUE: Imaging protocol: Radiologic exam of the chest. Views: 2 views. COMPARISON: CR XR CHEST AP 11/18/2021 10:28 PM FINDINGS: Lungs: Subtle ground-glass regions of opacification right lung base. No focal regions of consolidation demonstrated. Mild bilateral peribronchial thickening most pronounced at the lung bases. Pleural spaces: Unremarkable. No pleural effusion. No pneumothorax. Heart/Mediastinum: Unremarkable. No cardiomegaly. Bones/joints: Unremarkable. IMPRESSION: 1. Subtle ground-glass regions of opacification right lung base. No focal regions of consolidation demonstrated. 2. Findings compatible with bronchitis. 3. Consider follow-up if appropriate with computerized tomography for further evaluation.
--- NOTE | 2022-03-23 16:15 | EXP.UTC ---
Discharge Plan Disposition Patient Disposition: Home, Self-Care Condition: Good Prescriptions Prescriptions: New prednisone 10 mg tablet 10 mg PO DIRECTED 9 Days Qty: 21 0RF Rx Instructions: Take 4 tablets daily for 3 days, then take 2 tablets daily for 3 days, then take 1 tablet daily for 3 days, then stop. azithromycin [Zithromax] 250 mg tablet 250 mg PO UD DOSE PK Qty: 6 0RF Rx Instructions: Take two (2) tablets today, then one (1) tablet days #2 thru #5 benzonatate [benzonatate] 100 mg capsule 100 mg PO TIDP PRN (Reason: Cough) Qty: 30 0RF Paxlovid (EUA) 300 mg (150 mg x 2)-100 mg tablet See Rx Instructions .ROUTE .COMPLEX Qty: 30 0RF Rx Instructions: take TWO 150 mg tablets of nirmatrelvir with ONE 100 mg tablet of ritonavir twice daily for 5 days promethazine-DM 6.25-15 mg/5 mL Syrup 5 ml PO Q6H PRN (Reason: Cough) Qty: 240 0RF No Action montelukast [Singulair] 10 mg tablet 10 mg PO QDAY 90 Days Qty: 90 3RF fluticasone propion-salmeterol [Advair Diskus] 250-50 mcg/dose blister with device 1 inh IH BID 90 Days Qty: 180 3RF albuterol sulfate 90 mcg/actuation HFA aerosol inhaler 2 inh IH Q6H PRN (Reason: shortness of breath or wheezing) 90 Days Qty: 8.5 3RF ipratropium-albuterol 0.5 mg-3 mg(2.5 mg base)/3 mL solution for nebulization 3 ml IH QID PRN (Reason: shortness of breath or wheezing) 90 Days Qty: 360 3RF doxycycline hyclate 100 mg tablet 100 mg PO BID Qty: 20 0RF prednisone 20 mg tablet 20 mg PO BID Qty: 10 0RF Rx Instructions: administer with food or milk ergocalciferol (vitamin D2) 1,250 mcg (50,000 unit) capsule 1,250 mcg PO QWEEK Qty: 12 0RF aspirin [Adult Low Dose Aspirin] 81 mg tablet,delayed release (DR/EC) 81 mg PO DAILY Qty: 30 2RF (DME) pen needle, diabetic [Lite Touch Insulin Pen [place]] 31 gauge x 5/16 needle See Rx Instructions .Route Qty: 100 2RF Rx Instructions: As directed (DME) Monoject Safety Syringes 3 mL 22 gauge x 1 1/2 syringe See Rx Instructions .Route Qty: 4 0RF Rx Instructions: Use once monthly for Vit B12 injections diclofenac sodium 75 mg tablet,delayed release (DR/EC) See Rx Instructions .ROUTE .COMPLEX Qty: 90 3RF Dose Instruction: TAKE 1 TABLET BY MOUTH EVERY DAY Rx Instructions: TAKE 1 TABLET BY MOUTH EVERY DAY ropinirole 1 mg tablet 1 mg PO HS Qty: 90 2RF famotidine 20 mg tablet See Rx Instructions .ROUTE .COMPLEX Qty: 90 2RF Dose Instruction: TAKE 1 TABLET BY MOUTH EVERY DAY FOR GERD Rx Instructions: TAKE 1 TABLET BY MOUTH EVERY DAY FOR GERD lisinopril-hydrochlorothiazide 20-25 mg tablet See Rx Instructions .ROUTE .COMPLEX Qty: 90 2RF Dose Instruction: TAKE 1 TABLET BY MOUTH EVERY DAY Rx Instructions: TAKE 1 TABLET BY MOUTH EVERY DAY fluticasone propionate [Flonase Allergy Relief] 50 mcg/actuation spray,suspension 1 spray NS DAILY Qty: 16 2RF Rx Instructions: administer into each nostril Nucala 100 mg/mL auto-injector 100 mg SQ Q4W Qty: 1 3RF Rx Instructions: 100mg/ml solution in a single-dose prefilled autoinjector / SC to upper arm, thigh, or abdomen q4wk Spiriva Respimat 2.5 mcg/actuation mist 2 inh IH DAILY 90 Days Qty: 4 3RF spironolactone 25 mg tablet See Rx Instructions .ROUTE .COMPLEX Qty: 60 2RF Dose Instruction: TAKE ONE TABLET BY MOUTH 2 TIMES A DAY (NEED APPT) Rx Instructions: TAKE ONE TABLET BY MOUTH 2 TIMES A DAY (NEED APPT) cyanocobalamin (vitamin B-12) 1,000 mcg/mL solution See Rx Instructions .ROUTE .COMPLEX Qty: 1 1RF Dose Instruction: INJECT 1 ML INTRAMUSCULARLY DAILY FOR 7 DAYS, THEN WEEKLY FOR 1 MONTH, THEN MONTHLY. Rx Instructions: INJECT 1 ML INTRAMUSCULARLY DAILY FOR 7 DAYS, THEN WEEKLY FOR 1 MONTH, THEN MONTHLY. albuterol sulfate 2.5 MG/NEB solution for nebulization 2.5 mg IH TID Qty: 180 0RF
[2022-03-23 16:48] VITALS: BP 113/54; PULSE 89; RESP 16; TEMP 36.9
== END 2022-03-23 16:54 | disposition home or self-care (01) ==
PROVIDERS: Emergency Provider Nurse Practitioner Family; PCP Physician Assistant
DX: U07.1 COVID-19 (principal); R05.9 Cough, unspecified; R53.83 Other fatigue; R09.89 Other specified symptoms and signs involving the circulatory and respiratory systems
CPT/HCPCS: 71046; 96372; 99212; C9803; G0463; U0003; U0005

== ENCOUNTER 2022-09-30 22:48 | Emergency (ER) | payer MEDICAID, SELFPAY ==
[2022-09-30 22:49] VITALS: BP 142/81; PULSE 86; RESP 20; TEMP 36.6; O2SAT 94; BMI 58.7
--- NOTE | 2022-09-30 23:10 | CT_ITS ---
PROCEDURE INFORMATION: Exam: CT Abdomen And Pelvis Without Contrast Exam date and time: 09/30/2022 11:25 PM Age: 62 years old Clinical indication: Prior surgery; Surgery date: 6+ months; Surgery type: x3, cholecystectomy; Patient HX: Pain in lumbar region x mos, worsened x last 3 days. Former smoker. 0 CA HX. ; Additional info: Mid back pain, R/O TECHNIQUE: Imaging protocol: Computed tomography of the abdomen and pelvis without contrast. Radiation optimization: All CT scans at this facility use at least one of these dose optimization techniques: automated exposure control; mA and/or kV adjustment per patient size (includes targeted exams where dose is matched to clinical indication); or iterative reconstruction. REPORTING DATA: Count of CT and Cardiac NM exams in prior 12 months: This patient has received [address] and 0 known cardiac nuclear medicine studies in the 12 months prior to the current study. COMPARISON: CR XR HIP BI W PEL1V 11/18/2021 10:30 PM FINDINGS: Lungs: Clear basilar lung parenchyma. Pleural spaces: No pleural fluid. Heart: Normal heart size. Liver: Homogeneous low attenuation throughout the liver is compatible with fatty infiltration. Gallbladder and bile ducts: Prior cholecystectomy. No biliary tree dilation or high-density retained stones appreciated. Pancreas: Normal. No ductal dilation. Spleen: Normal. No splenomegaly. Adrenal glands: Normal configuration. Kidneys and ureters: No evidence of obstruction. No visible inflammation. Stomach and bowel: Postprandial stomach. Normal caliber small bowel. In the mid transverse colon, there is a luminal fatty mass compatible with lipoma measuring 4.3 x 2.2 x 3.2 cm. No obstructive features are appreciated. Appendix: Normal appendix is confirmed. Intraperitoneal space: No free air. No significant fluid collection. Vasculature: Normal caliber arterial structures. Lymph nodes: No enlarged lymph nodes. Urinary bladder: Unremarkable as visualized. Reproductive: Physiologic appearance for age. Bones/joints: There are 5 lumbar type vertebrae. Vertebral body heights are normal throughout. Degenerative disc and facet disease is notable at L3-L4 with mild spinal canal stenosis. Neural foramina are adequate. At L4-L5, there is minimal spinal canal and bilateral neural foraminal stenosis. At L5-S1, there is prominent facet arthropathy with right neural foraminal stenosis. Mild bilateral sacroiliac osteoarthritis. Normal appearance of the hips. No evidence of fracture or bony destructive change. Soft tissues: Unremarkable. IMPRESSION: 1. There is multilevel degenerative disc and facet disease in the lumbar spine with spinal stenosis at L3-L4 and L4-L5. Correlate with any symptoms of neurogenic claudication. There is also multifocal neural foraminal stenosis, bilaterally at L4-L5 and on the right at L5-S1. Correlate with any symptoms of radiculopathy. 2. Lipoma noted in the mid transverse colon without current features of obstruction. This lesion could serve as a lead point for colo colic intussusception.
--- NOTE | 2022-09-30 23:10 | CT_ITS ---
PROCEDURE INFORMATION: Exam: CT Lumbar Spine Without Contrast Exam date and time: 09/30/2022 11:29 PM Age: 62 years old Clinical indication: Low back pain; Patient HX: Pain in lumbar region w C/O shooting pains radiating superiorly x mos, worsened x last 3 days. Former smoker. 0 CA HX. Nkt. ; Additional info: Mid back pain, R/O TECHNIQUE: Imaging protocol: Computed tomography of the lumbar spine without contrast. Radiation optimization: All CT scans at this facility use at least one of these dose optimization techniques: automated exposure control; mA and/or kV adjustment per patient size (includes targeted exams where dose is matched to clinical indication); or iterative reconstruction. REPORTING DATA: Count of CT and Cardiac NM exams in prior 12 months: This patient has received [address] and 0 known cardiac nuclear medicine studies in the 12 months prior to the current study. COMPARISON: CT ABDOMEN PELVIS WO CON 09/30/2022 11:25 PM FINDINGS: Bones/joints: There are 5 lumbar type vertebrae. Vertebral body heights are normal throughout. L1-L2 is normal without significant degenerative change. At L2-L3, there is subtle right facet arthropathy without spinal canal or neural foraminal stenosis. At L3-L4, there is bilateral facet arthropathy with minimal L3 on 4 anterolisthesis. Mild diffuse disc bulge noted, resulting in moderate spinal canal stenosis. Neural foramina remain adequate. At L4-L5, there is degenerative disc and facet disease with mild spinal canal stenosis and bilateral neural foraminal stenosis. At L5-S1, there is degenerative disc and asymmetric facet disease with right neural foraminal stenosis. Mild sacroiliac osteoarthritis. Soft tissues: Unremarkable. IMPRESSION: No evidence of fracture or destructive lesion in the lumbar spine. There is moderate lower lumbar degenerative change detailed above. Findings include spinal stenosis at L3-L4 and L4-L5 which could contribute to neurogenic claudication.
--- NOTE | 2022-09-30 23:26 | PC.NURSE ---
Pt to ct scan with radiology therapist
[2022-09-30 23:29] LABS: Basophils % 0.4 % (0.1-2.0); Eosinophils # 0.2 K/mm3 (0.0-0.4); Eosinophils % 2.2 % (0.1-12.0); Hemoglobin 12.1 g/dL (12.2-16.2); Lymphocytes # 1.9 K/mm3 (0.7-4.5); Lymphocytes % 25.5 % (10-50); Mean Corpuscular HGB Conc 32.6 g/dL (31.8-35.4); Mean Corpuscular Hemoglobin 28.4 pg (27.0-31.2); Mean Corpuscular Volume 87.2 fl (81-99); Mean Platelet Volume 7.8 fl (7.4-10.4); Monocytes # 0.3 K/mm3 (0.1-1.0); Monocytes % 3.9 % (1.7-9.3); Neutrophils # 5.1 K/mm3 (1.8-7.8); Neutrophils % 68.1 % (37.0-80.0); Platelet Count 254 K/mm3 (142-424); Red Blood Count 4.25 M/mm3 (4.20-5.40); Red Cell Distribution Width 14.6 % (11.5-17.5); White Blood Count 7.5 K/mm3 (4.8-10.8)
--- NOTE | 2022-09-30 23:32 | PC.WOUNDNOTE ---
pt back from ct scan
--- NOTE | 2022-09-30 23:37 | HMH.EDBACK ---
Discharge Plan Disposition Patient Disposition: Home, Self-Care Chief Complaint: Back Pain/Injury Prescriptions Prescriptions: No Action albuterol sulfate 2.5 mg /3 mL (0.083 %) solution for nebulization 2.5 mg inhalation Q6H PRN (Reason: shortness of breath or wheezing) Qty: 180 2RF levofloxacin 500 mg tablet 500 mg PO Q24H Qty: 10 0RF prednisone 20 mg tablet 20 mg PO DAILY Qty: 18 0RF Rx Instructions: TID X 3 days, BID X 3 days, QD X 3 days fluticasone propion-salmeterol [Advair Diskus] 250-50 mcg/dose blister with device 1 inh IH BID 90 Days Qty: 180 3RF ipratropium-albuterol 0.5 mg-3 mg(2.5 mg base)/3 mL solution for nebulization 3 ml IH QID PRN (Reason: shortness of breath or wheezing) 90 Days Qty: 360 3RF fluticasone propionate [Flonase Allergy Relief] 50 mcg/actuation spray,suspension 1 spray NS DAILY Qty: 16 2RF Rx Instructions: administer into each nostril montelukast 10 mg tablet See Rx Instructions .ROUTE .COMPLEX Qty: 30 0RF Dose Instruction: TAKE ONE TABLET BY MOUTH ONCE A DAY Rx Instructions: TAKE ONE TABLET BY MOUTH ONCE A DAY albuterol sulfate 90 mcg/actuation HFA aerosol inhaler 2 inh IH Q6H PRN (Reason: shortness of breath or wheezing) 90 Days Qty: 8.5 3RF Spiriva with HandiHaler 18 mcg capsule, w/inhalation device 1 cap inhalation DAILY 90 Days Qty: 90 3RF Rx Instructions: puncture 1 cap using device; one dose = 2 inhalations aspirin [Adult Low Dose Aspirin] 81 mg tablet,delayed release (DR/EC) 81 mg PO DAILY Qty: 30 2RF (DME) pen needle, diabetic [Lite Touch Insulin Pen [place]] 31 gauge x 5/16 needle See Rx Instructions .Route Qty: 100 2RF Rx Instructions: As directed (DME) Monoject Safety Syringes 3 mL 22 gauge x 1 1/2 syringe See Rx Instructions .Route Qty: 4 0RF Rx Instructions: Use once monthly for Vit B12 injections lisinopril-hydrochlorothiazide 20-25 mg tablet See Rx Instructions .ROUTE .COMPLEX Qty: 90 2RF Dose Instruction: TAKE 1 TABLET BY MOUTH EVERY DAY Rx Instructions: TAKE 1 TABLET BY MOUTH EVERY DAY Nucala 100 mg/mL auto-injector 100 mg SQ Q4W Qty: 1 3RF Rx Instructions: 100mg/ml solution in a single-dose prefilled autoinjector / SC to upper arm, thigh, or abdomen q4wk cyanocobalamin (vitamin B-12) 1,000 mcg/mL solution See Rx Instructions .ROUTE .COMPLEX Qty: 1 1RF Dose Instruction: INJECT 1 ML INTRAMUSCULARLY DAILY FOR 7 DAYS, THEN WEEKLY FOR 1 MONTH, THEN MONTHLY. Rx Instructions: INJECT 1 ML INTRAMUSCULARLY DAILY FOR 7 DAYS, THEN WEEKLY FOR 1 MONTH, THEN MONTHLY. fluconazole [Diflucan] 150 mg tablet 150 mg PO Q3D Qty: 2 0RF Rx Instructions: may repeat second dose 72 hrs after first dose if symptoms persist famotidine 20 mg tablet See Rx Instructions .ROUTE .COMPLEX Qty: 30 2RF Dose Instruction: TAKE ONE TABLET BY MOUTH ONCE A DAY FOR GERD Rx Instructions: TAKE ONE TABLET BY MOUTH ONCE A DAY FOR GERD diclofenac sodium 75 mg tablet,delayed release (DR/EC) See Rx Instructions .ROUTE .COMPLEX Qty: 30 0RF Dose Instruction: TAKE ONE TABLET BY MOUTH ONCE A DAY Rx Instructions: TAKE ONE TABLET BY MOUTH ONCE A DAY spironolactone 25 mg tablet See Rx Instructions .ROUTE .COMPLEX Qty: 60 0RF Dose Instruction: TAKE ONE TABLET BY MOUTH 2 TIMES A DAY Rx Instructions: TAKE ONE TABLET BY MOUTH 2 TIMES A DAY ropinirole 1 mg tablet See Rx Instructions .ROUTE .COMPLEX Qty: 30 0RF Dose Instruction: TAKE ONE TABLET BY MOUTH AT BEDTIME Rx Instructions: TAKE ONE TABLET BY MOUTH AT BEDTIME albuterol sulfate 2.5 MG/NEB solution for nebulization 2.5 mg IH TID Qty: 180 0RF Referrals Follow up/Referrals: Jamilah Severino PA [Primary Care Provider] - See instructions Clinical Impressions Clinical Impression: Back pain, Lumbar radiculopathy Inst
[2022-09-30 23:42] LABS: Alanine Aminotransferase 39 U/L (12-78); Albumin Level 4.1 g/dl (3.5-5.0); Albumin/Globulin Ratio 1.3 (1.1-1.8); Alkaline Phosphatase 84 U/L (38-126); Aspartate Amino Transferase 36 U/L (14-36); Bilirubin,Total 0.6 mg/dl (0.2-1.3); Blood Urea Nitrogen 35 mg/dl (7-17); Calcium 9.1 mg/dl (8.4-10.2); Carbon Dioxide 32 mmol/L (22.0-30.0); Chloride 102 mmol/L (98-107); Creatinine Clearance Estimated 37 mL/min (50-200); Estimated Glomerular Filt Rate 38 ml/min (>60); GFR (African American) 46 ML/MIN (>60); Globulin 3.1 g/dL (1.3-3.2); Glucose 129 mg/dl (74-100); Sodium 140 mmol/L (136-145); Total Protein,Serum 7.2 g/dl (6.3-8.2)
[2022-10-01 00:01] VITALS: BP 124/72; PULSE 78; O2SAT 94
[2022-10-01 00:30] VITALS: BP 140/78; PULSE 84; RESP 18; O2SAT 95
--- NOTE | 2022-10-01 00:59 | PC.NURSE ---
called taina beltran to see status of ct reads. Crista is going to chat with VESTA
--- NOTE | 2022-10-01 01:06 | PC.NURSE ---
grades 7 8 tutor states [facility] are now reading pt's CT scan. updated on this.
[2022-10-01 01:48] VITALS: BP 91/50; PULSE 86; RESP 18; TEMP 36.8; O2SAT 94
== END 2022-10-01 01:50 | disposition home or self-care (01) ==
PROVIDERS: Emergency Provider Emergency Medicine; PCP Physician Assistant
DX: M54.16 Radiculopathy, lumbar region (principal); J44.9 Chronic obstructive pulmonary disease, unspecified; I10 Essential (primary) hypertension; G62.9 Polyneuropathy, unspecified
CPT/HCPCS: 72131; 74176; 80053; 85025; 96361; 96374; 96375; 99285; J2405

== ENCOUNTER 2022-12-08 17:07 | Emergency (ER) | payer MEDICAID, SELFPAY ==
[2022-12-08 17:15] VITALS: BP 131/84; PULSE 104; RESP 18; TEMP 36.9; O2SAT 97; BMI 57.7
[2022-12-08 17:36] LABS: UTC Strep Screen (Rapid) Negative (Negative)
--- NOTE | 2022-12-08 17:49 | EXP.UTC ---
Discharge Plan Disposition Patient Disposition: Home, Self-Care Condition: Good Prescriptions Prescriptions: New amoxicillin 500 mg capsule 500 mg PO TID 10 Days Qty: 30 0RF methylprednisolone [Medrol ([place])] 4 mg tablets,dose pack See Rx Instructions .Route .COMPLEX 6 Days Qty: 21 0RF Rx Instructions: taper pack; No Action albuterol sulfate 2.5 mg /3 mL (0.083 %) solution for nebulization 2.5 mg inhalation Q6H PRN (Reason: shortness of breath or wheezing) Qty: 180 2RF ipratropium-albuterol 0.5 mg-3 mg(2.5 mg base)/3 mL solution for nebulization 3 ml IH QID PRN (Reason: shortness of breath or wheezing) 90 Days Qty: 360 3RF albuterol sulfate 90 mcg/actuation HFA aerosol inhaler 2 inh IH Q6H PRN (Reason: shortness of breath or wheezing) 90 Days Qty: 8.5 3RF (DME) Monoject Safety Syringes 3 mL 22 gauge x 1 1/2 syringe See Rx Instructions .Route Qty: 4 0RF Rx Instructions: Use once monthly for Vit B12 injections (DME) BD Luer-Carmela Syringe 3 mL 25 gauge x 1 syringe See Rx Instructions .ROUTE .COMPLEX Qty: 100 0RF Dose Instruction: USE DIRECTED Rx Instructions: USE DIRECTED fluticasone propion-salmeterol [Advair Diskus] 250-50 mcg/dose blister with device 1 inh IH BID ropinirole 1 mg tablet See Rx Instructions .ROUTE .COMPLEX Rx Instructions: TAKE ONE TABLET BY MOUTH AT BEDTIME aspirin [Adult Low Dose Aspirin] 81 mg tablet,delayed release (DR/EC) 81 mg PO DAILY spironolactone 25 mg tablet See Rx Instructions .ROUTE .COMPLEX Rx Instructions: TAKE ONE TABLET BY MOUTH 2 TIMES A DAY famotidine 20 mg tablet See Rx Instructions .ROUTE .COMPLEX Rx Instructions: TAKE ONE TABLET BY MOUTH ONCE A DAY FOR GERD cyanocobalamin (vitamin B-12) 1,000 mcg/mL solution See Rx Instructions .ROUTE .COMPLEX Rx Instructions: INJECT 1 ML INTRAMUSCULARLY ONCE A MONTH lisinopril-hydrochlorothiazide 20-25 mg tablet See Rx Instructions .ROUTE .COMPLEX Rx Instructions: TAKE 1 TABLET BY MOUTH EVERY DAY diclofenac sodium 75 mg tablet,delayed release (DR/EC) See Rx Instructions .ROUTE .COMPLEX Rx Instructions: TAKE ONE TABLET BY MOUTH ONCE A DAY montelukast 10 mg tablet See Rx Instructions .ROUTE .COMPLEX Rx Instructions: TAKE ONE TABLET BY MOUTH ONCE A DAY fluticasone propionate [Flonase Allergy Relief] 50 mcg/actuation spray,suspension 1 spray NS DAILY Rx Instructions: administer into each nostril tiotropium bromide [Spiriva with HandiHaler] 18 mcg capsule, w/inhalation device 1 cap inhalation DAILY Rx Instructions: puncture 1 cap using device; one dose = 2 inhalations Nucala 100 mg/mL auto-injector 100 mg SQ Q4W Rx Instructions: 100mg/ml solution in a single-dose prefilled autoinjector / SC to upper arm, thigh, or abdomen q4wk Referrals Follow up/Referrals: Jamilah Severino PA [Primary Care Provider] - See instructions Activity Restrictions/Add. Instructions Additional Instructions/Restrictions: *Monitor Temp, Over the counter Motrin or Tylenol as directed/as needed Tylenol every 4 hours and Motrin every 6 hours (as long as your family doctor has told you that you can take it) for fever or pain. and straight to ER if unable to lower temp less than 101.0 after medication given *Warm salt water gargles may help to soothe the throat *Throat Lozenges? *Warm fluids like tea with honey may help to soothe the throat? *Sleep elevated *Humidifier/Vaporizer Your throat swab was sent for culture. Those results are typically sent to your primary care. Be sure to follow up in 2-3 days with your family doctor/primary care physician if no improvement so they can review those result and treat if necessary. If you don?t have a primary care doctor, I recommend you get one but in the mean time, you will have to re
[2022-12-08 18:19] VITALS: BP 131/84; PULSE 104; RESP 18; TEMP 36.9; O2SAT 97
== END 2022-12-08 18:18 | disposition home or self-care (01) ==
PROVIDERS: Emergency Provider Nurse Practitioner; PCP Physician Assistant
DX: H66.91 Otitis media, unspecified, right ear (principal); R51.9 Headache, unspecified; J44.9 Chronic obstructive pulmonary disease, unspecified; I10 Essential (primary) hypertension; G47.00 Insomnia, unspecified; D72.10 Eosinophilia, unspecified; G62.9 Polyneuropathy, unspecified; G25.81 Restless legs syndrome; M19.90 Unspecified osteoarthritis, unspecified site; Z87.891 Personal history of nicotine dependence
CPT/HCPCS: 87880; 99212; 99214; G0463

== ENCOUNTER → 2022-12-11 12:37 | Outpatient (CLI) | payer MEDICAID, SELFPAY ==
--- NOTE | 2022-12-11 12:38 | CT_ITS ---
FINAL REPORT TECHNIQUE: Axial CT images of the chest were obtained without contrast. Low-dose protocol was utilized. This study was performed with techniques to keep radiation doses as low as reasonably achievable (ALARA). Individualized dose reduction techniques using automated exposure control or adjustment of mA and/or kV according to the patient's size were employed. CLINICAL HISTORY: lung cancer screening former smoker, quit 17 years ago. smoked 2 ppd x 10 years COMPARISON: 10/03/2021 FINDINGS: CT CHEST WITHOUT, LOW DOSE SCREENING CT Di Vol: 2.90 mGy DLP: 96.38 mGy*cm There is no axillary, mediastinal, or hilar adenopathy. The heart size is normal. There is no pleural or pericardial effusion. The lung windows show no suspicious mass or nodule. Limited images of the upper abdomen demonstrate fatty infiltration of the liver. IMPRESSION: LR Category 1: 12 month follow-up low-dose chest CT is recommended. Reviewed, Interpreted and Dictated by Abad Lew MD Transcribed by Coby Pineda Authenticated and . [facility]
== END ==
PROVIDERS: PCP Physician Assistant; Visit Provider Internal Medicine Pulmonary Disease
DX: F17.210 Nicotine dependence, cigarettes, uncomplicated (principal); Z12.2 Encounter for screening for malignant neoplasm of respiratory organs
CPT/HCPCS: 71271

== ENCOUNTER → 2022-12-31 14:42 | Outpatient (CLI) | payer MEDICAID, SELFPAY | PROVIDERS: PCP Physician Assistant; Visit Provider Internal Medicine Pulmonary Disease | DX: G47.30 Sleep apnea, unspecified (principal) | CPT/HCPCS: 94762 ==

== ENCOUNTER 2023-06-18 12:50 | Outpatient (CLI) | payer OTHER, SELFPAY | END 2023-06-18 23:59 | PROVIDERS: PCP Physician Assistant; Visit Provider Internal Medicine Pulmonary Disease | DX: R06.09 Other forms of dyspnea (principal) | CPT/HCPCS: 94060; 94618 ==

== ENCOUNTER 2023-07-24 20:25 | Emergency (ER) | payer OTHER, SELFPAY ==
[2023-07-24 20:36] VITALS: BP 161/110; PULSE 112; RESP 20; TEMP 37.2; O2SAT 95; BMI 57.2
[2023-07-24 20:39] LABS: Microscopic, Urine URINE MICROSCOPIC (MICROSCOPIC)
[2023-07-24 20:44] LABS: Appearance,Urine CLEAR (Clear); Bilirubin,Urine Negative (Negative); Blood, Urine 3+ (Negative); Color,Urine YELLOW (Yellow); Glucose,Urine (UA) Negative (Negative); Ketones,Urine Negative (Negative); Leukocyte Esterase,Urine 3+ (Negative); Nitrate,Urine POSITIVE (Negative); PH,Urine 7.5 (5.0-8.5); Protein,Urine 2+ (Negative); Specific Gravity, Urine 1.015 (1.005-1.030)
[2023-07-24] MEDS: CEFDINIR 300MG CAPSULE 300 MG PO (20:56)
[2023-07-24] MEDS: IBUPROFEN 400 MG TABLET 800 MG PO (20:58)
[2023-07-24 21:00] LABS: Bacteria,Urine 1+ /lpf; Squamous Epithelial Cell,Urine Occasional #/hpf (0-5); WBC,Urine 20-50 #/hpf (0-3)
--- NOTE | 2023-07-24 21:03 | HMH.EDGENADL ---
Discharge Plan Disposition Patient Disposition: Home, Self-Care Prescriptions Prescriptions: New cefdinir 300 mg capsule 300 mg PO BID 14 Days Qty: 28 0RF No Action ipratropium-albuterol 0.5 mg-3 mg(2.5 mg base)/3 mL solution for nebulization 3 ml IH QID PRN (Reason: shortness of breath or wheezing) 90 Days Qty: 360 3RF albuterol sulfate 90 mcg/actuation HFA aerosol inhaler 2 inh IH Q6H PRN (Reason: shortness of breath or wheezing) 90 Days Qty: 8.5 3RF tramadol 50 mg tablet 50 mg PO Q8H PRN (Reason: pain) Qty: 30 0RF (DME) Monoject Safety Syringes 3 mL 22 gauge x 1 1/2 syringe See Rx Instructions .Route Qty: 4 0RF Rx Instructions: Use once monthly for Vit B12 injections (DME) BD Luer-Carmela Syringe 3 mL 25 gauge x 1 syringe See Rx Instructions .ROUTE .COMPLEX Qty: 100 0RF Dose Instruction: USE DIRECTED Rx Instructions: USE DIRECTED ropinirole 1 mg tablet See Rx Instructions .ROUTE .COMPLEX Qty: 30 1RF Dose Instruction: TAKE ONE TABLET BY MOUTH AT BEDTIME Rx Instructions: TAKE ONE TABLET BY MOUTH AT BEDTIME fluticasone propionate [Flonase Allergy Relief] 50 mcg/actuation spray,suspension 1 spray NS DAILY Qty: 16 2RF Rx Instructions: administer into each nostril cyanocobalamin (vitamin B-12) 1,000 mcg/mL solution See Rx Instructions .ROUTE .COMPLEX Qty: 1 0RF Dose Instruction: INJECT 1 ML INTRAMUSCULARLY ONCE A MONTH Rx Instructions: INJECT 1 ML INTRAMUSCULARLY ONCE A MONTH spironolactone 25 mg tablet See Rx Instructions .ROUTE .COMPLEX Qty: 60 0RF Dose Instruction: TAKE ONE TABLET BY MOUTH 2 TIMES A DAY Rx Instructions: TAKE ONE TABLET BY MOUTH 2 TIMES A DAY lisinopril-hydrochlorothiazide 20-25 mg tablet See Rx Instructions .ROUTE .COMPLEX Qty: 30 0RF Dose Instruction: TAKE 1 TABLET BY MOUTH EVERY DAY Rx Instructions: TAKE 1 TABLET BY MOUTH EVERY DAY famotidine 20 mg tablet See Rx Instructions .ROUTE .COMPLEX Qty: 30 0RF Dose Instruction: TAKE ONE TABLET BY MOUTH ONCE A DAY FOR GERD Rx Instructions: TAKE ONE TABLET BY MOUTH ONCE A DAY FOR GERD diclofenac sodium 75 mg tablet,delayed release (DR/EC) See Rx Instructions .ROUTE .COMPLEX Qty: 30 0RF Dose Instruction: TAKE ONE TABLET BY MOUTH ONCE A DAY Rx Instructions: TAKE ONE TABLET BY MOUTH ONCE A DAY aspirin [Adult Low Dose Aspirin] 81 mg tablet,delayed release (DR/EC) 81 mg PO DAILY montelukast 10 mg tablet See Rx Instructions .ROUTE .COMPLEX Rx Instructions: TAKE ONE TABLET BY MOUTH ONCE A DAY tiotropium bromide [Spiriva with HandiHaler] 18 mcg capsule, w/inhalation device 1 cap inhalation DAILY Rx Instructions: puncture 1 cap using device; one dose = 2 inhalations Nucala 100 mg/mL auto-injector 100 mg SQ Q4W Rx Instructions: 100mg/ml solution in a single-dose prefilled autoinjector / SC to upper arm, thigh, or abdomen q4wk Referrals Follow up/Referrals: Jamilah Severino PA [Primary Care Provider] - See instructions Activity Restrictions/Add. Instructions Additional Instructions/Restrictions: Call your family doctor to establish care for this visit to the emergency department and schedule follow-up within 48 hours to ensure improvement. If you have any worsening of your condition or any other concerning signs or symptoms, return to the emergency department or your primary care doctor for further evaluation. Cefdinir twice daily for 14 days. Clinical Impressions Clinical Impression: Acute pyelonephritis Instructions Patient Instructions: DI for Urinary Tract Infection (UTI), DI for Urinary Tract Infection in Children Discharge ED Provider: Fabio Diaz General Adult HPI General Chief complaint: Urogenital-Female Stated complaint: pressure with urination,back pain Time Seen by Provider: 07/24/23 20:29 Mode of Arrival: Ambulatory Source of Information: Patient Limitations: No Limitations Description of Symptoms (Recalled from ER Triage Doc. by RN): pt to ED with c/o left flank pain and pressure/pain when urinating. pt reports difficulty emptying bladder. symptoms started 2 days ago and have progressively gotten worse. pt reports taking AZO without relief. History of Present Illness HPI narrative: Please note that above description of symptoms, in this electronic medical record under categorization of recalled from ER triage doctor by RN are reflective of an initial nursing assessment, however, is not reflective of my full history and physical exam that was personally taken and clarified. Consequentially, this preceding description of symptoms, which may include the patient's categorized chief complaint in the EMR, do not reflect my personal clinical impression, and the ultimate description of history of present illness and patient stated complaints should be deferred to this section of the note. Unless stated otherwise or congruent with this section of the note, additional signs, symptoms, or incongruence should be interpreted as inaccurate with my clinical impression. Related Data Home Medications Medication Instructions Recorded Confirmed aspirin 81 mg tablet,delayed 81 mg PO DAILY . 12/08/22 06/18/23 release (Adult Low Dose Aspirin) mepolizumab 100 mg/mL subcutaneous 100 mg SQ Q4W . 12/08/22 06/18/23 auto-injector (Nucala) montelukast 10 mg tablet See Rx Instructions .Route 12/08/22 06/18/23 .COMPLEX . tiotropium bromide 18 mcg capsule 1 cap inhalation DAILY , 12/08/22 06/18/23 with inhalation device (Spiriva with HandiHaler) Previous Rx's Medication Instructions Recorded syringe with needle, safety 3 mL #4 ea 02/13/21 22 gauge x 1 1/2 (Monoject Safety Syringes) albuterol sulfate 90 mcg/actuation 2 inh inhalation Q6H PRN shortness 09/09/22 aerosol inhaler of breath or wheezing 90 days #8.5 grams ipratropium 0.5 mg-albuterol 3 mg 3 ml inhalation QID PRN shortness 09/09/22 (2.5 mg base)/3 mL nebulization of breath or wheezing 90 days #360 soln mL syringe with needle 3 mL 25 gauge #100 ea 10/17/22 x 1 (BD Luer-Carmela Syringe) ropinirole 1 mg tablet See Rx Instructions .Route 04/08/23 .COMPLEX #30 tabs fluticasone propionate 50 1 spray intranasal DAILY #16 grams 04/17/23 mcg/actuation nasal spray,suspension (Flonase Allergy Relief) cyanocobalamin (vitamin B-12) See Rx Instructions .Route 05/12/23 1,000 mcg/mL injection solution .COMPLEX #1 mL tramadol 50 mg tablet 50 mg PO Q8H PRN pain #30 tabs 05/27/23 cefdinir 300 mg capsule 300 mg PO BID 14 days #28 caps 07/24/23 diclofenac sodium 75 mg See Rx Instructions .Route 07/24/23 tablet,delayed release .COMPLEX #30 tabs famotidine 20 mg tablet See Rx Instructions .Route 07/24/23 .COMPLEX #30 tabs lisinopril 20 See Rx Instructions .Route 07/24/23 mg-hydrochlorothiazide 25 mg tablet .COMPLEX #30 tabs spironolactone 25 mg tablet See Rx Instructions .Route 07/24/23 .COMPLEX #60 tabs Allergies Allergy/AdvReac Type Severity Reaction Status Date / Time morphine [MORPHINE] Allergy Severe S-DIFF. Verified 06/18/23 13:57 BREATHING atropine [From LOMOTIL] Allergy Intermediate I-RASH Verified 06/18/23 13:57 clonidine Allergy Intermediate swelling Verified 06/18/23 13:57 codeine [CODEINE] Allergy Intermediate I-HIVES Verified 06/18/23 13:57 diphenoxylate [From LOMOTIL] Allergy Intermediate I-RASH Verified 06/18/23 13:57 celecoxib [From CELEBREX] Allergy Unknown Verified 06/18/23 13:57 meloxicam Allergy Verified 06/18/23 13:57 [facility] Disclaimer: The information contained in this section may have been updated after the patient was seen, as this information can be updated by other users. Medical History Sleep apnea Asthma Asthma-chronic obstructive pulmonary disease overlap syndrome Allergic rhinitis History of sleep apnea Nocturnal hypoxemia Elevated IgE level COPD (chronic obstructive pulmonary disease) Dyspnea on exertion Pulmonary emphysema Stopped smoking with greater than 30 pack year history Eosinophilia, unspecified Neuropathy RLS (restless legs syndrome) Insomnia Knee pain Arthritis Hypertension Surgical History History of tubal ligation History of total hysterectomy History of hernia repair History of section Hx of cholecystectomy History of arthroscopic knee surgery History of tonsillectomy Family History Other Cancer Coronary artery disease Heart attack Hyperlipidemia Social History Smoking Status: Never smoker alcohol intake: never substance use type: denies use current occupational status: other Travel in the last 8 weeks: None ROS Obtained: Yes All systems reviewed & no additional complaints except as documented Physical Exam General General appearance: alert and in no apparent distress Head Head exam: atraumatic and normocephalic Eye Eye exam: Present normal appearance, PERRL and EOMI ENT ENT exam: Present mucous membranes moist Neck Neck exam: Present normal inspection, full ROM and trachea midline Respiratory Respiratory exam: Absent respiratory distress, wheezes, stridor, accessory muscle use or prolonged expiratory phase Cardiovascular Cardiovascular exam: Present normal rhythm Abdominal Exam Abdominal exam: Present soft; Absent distention, tenderness, guarding, rebound or rigidity Extremities Exam Extremities exam: Absent edema Neurological Exam Neurological exam: Present alert, oriented X3, CN II-XII intact and normal gait; Absent motor sensory deficit Skin Skin exam: Present warm and dry; Absent diaphoresis or erythema Medical Decision Making Medical Records Medical records reviewed: Yes I reviewed the patient's medical records. Obed Inquiry Pt receiving controlled substance: No Obed was queried for this patient: No Vital Signs: 07/24/23 20:36 Temperature 99.0 F Temperature Source Oral Pulse Rate [Left Radial] 112 H Respiratory Rate 20 Blood Pressure [Right Arm] 161/110 H Blood Pressure Mean [Right Arm] 127 Blood Pressure Source [Right Arm] Automatic Cuff Blood Pressure Position [Right Arm] Sitting 02 Sat by Pulse Oximetry 95 Oxygen Delivery Method Room Air Lab Data Lab Results 07/24/23 20:35: Urine Color Yellow, Urine Appearance Clear, Urine pH 7.5, Ur Specific [place] 1.015, Urine Protein 2+, Urine Glucose (UA) Negative, Urine Ketones Negative, Urine Blood 3+, Urine Nitrate Positive, Urine Bilirubin Negative, Urine Urobilinogen 1.0, Ur Leukocyte Esterase 3+ A, Urine RBC 10-20, Urine WBC 20-50, Ur Squamous Epith Cells Occasional, Urine Bacteria 1+ Orders (Tests/Meds): ED MEDICATIONS Discontinued Medications Generic Name Dose Route Start Last Admin Trade Name Freq PRN Reason Stop Dose Admin Cefdinir 300 mg 07/24/23 20:51 07/24/23 20:56 Cefdinir 300mg Capsule PO 07/24/23 20:52 300 mg ONCE ONE Administration Ibuprofen 800 mg 07/24/23 20:57 07/24/23 20:58 Ibuprofen 400 Mg Tablet PO 07/24/23 20:58 800 mg ONCE ONE Administration ORDERS Category Date Time Status UA [Urinalysis and Microscopic] Stat Lab 07/24/23 20:35 Completed Urine Culture Stat Micro 07/24/23 20:35 Received Medical Decision Narrative: 63-year-old female no relevant medical history presenting with dysuria, hematuria, flank pain and nausea. Patient states that she started having dysuria 2 days prior to this visit. She usually takes Azo and it makes it better, has not made it better this time. It is now in her left flank associated with nausea without vomiting. No fevers or chills, but still having dysuria and hematuria. History was obtained via conversation with patient. On arrival, patient hemodynamically stable, alert, oriented x4, appropriate, GCS 15, moving all extremities spontaneously, pupils equal and reactive to light. Full physical exam performed and significant for uncomfortable appearing woman in no acute distress. She does have left flank tenderness, no overlying skin changes. No abdominal tenderness. Hypertensive, tachycardic, likely due to discomfort. Differential includes cystitis, pyelonephritis, nephrolithiasis, among others. Patient was given Rocephin, ibuprofen for symptomatic management and correction of underlying abnormalities. Workup independently interpreted and significant for UTI with protein, blood, nitrates, leukocyte Estrace and bacteria concerning for pyelonephritis. CT of the abdomen pelvis was considered in the setting of previous kidney stones, but given directionality of pain, history, physical exam, urine findings, I feel this is not appropriate at this time and is more indicative of pyelonephritis. Because patient at baseline without signs or symptoms of clinical decompensation, deemed appropriate for discharge. Results were relayed to patient who voiced understanding and were agreeable to outpatient management and follow up. I discussed my clinical impression with patient and answered all questions. At this time, the evidence for any other entities in the differential is insufficient to warrant any further testing or ED observation. This was explained as well. Advisory was given that persistent or worsening symptoms require further evaluation. I confirmed the understanding of this discussion. Critical Care Critical Care Time Critical Care Time: No
[2023-07-24 21:18] VITALS: BP 152/94; PULSE 104; RESP 18; TEMP 37.2; O2SAT 96
--- NOTE | 2023-07-28 08:49 | PC.NURSE ---
reviewed culture results with MD; no action needed
== END 2023-07-24 21:19 | disposition home or self-care (01) ==
PROVIDERS: Emergency Provider Emergency Medicine; PCP Physician Assistant
DX: N10 Acute pyelonephritis (principal); B96.29 Other Escherichia coli [E. coli] as the cause of diseases classified elsewhere
CPT/HCPCS: 81001; 87086; 99283

== ENCOUNTER 2023-08-19 15:14 | Outpatient (CLI) | payer OTHER, SELFPAY ==
--- NOTE | 2023-08-19 15:14 | MM_ITS ---
PROCEDURE INFORMATION: Exam: MG Bilateral Screening 3D Mammography Exam date and time: 08/19/2023 3:13 PM Age: 63 years old Clinical indication: Screening. No family history of breast cancer. TECHNIQUE: Imaging protocol: Bilateral Screening tomosynthesis and 2D mammography including computer-aided detection (CAD) when performed. COMPARISON: 1. MG MM DIG SCREENING MAMM BI W/CAD 12/14/2021 2:14 PM 2. MG MAMMO SCREENING DIGITAL BILAT 02/02/2016 2:41 PM FINDINGS: MAMMOGRAPHY: Breast composition: The breasts are almost entirely fatty. Mass: No suspicious mass. Architectural distortion: None. Calcifications: No suspicious calcifications. Asymmetric density: None. Skin thickening: None. Axillary adenopathy: None. IMPRESSION: No mammographic evidence of malignancy. Annual screening is recommended unless otherwise clinically indicated. ASSESSMENT: BI-RADS Category 1: Negative
== END 2023-08-19 23:59 | disposition home or self-care (01) ==
LOC: RAD 15:14
PROVIDERS: PCP Physician Assistant; Visit Provider Physician Assistant
DX: Z12.31 Encounter for screening mammogram for malignant neoplasm of breast (principal)
CPT/HCPCS: 77063; 77067

== ENCOUNTER 2023-09-30 15:50 | Outpatient (CLI) | payer OTHER, SELFPAY | END 2023-09-30 23:59 | disposition home or self-care (01) | LOC: LAB.DROPOF 15:50 | PROVIDERS: PCP Physician Assistant; Visit Provider Physician Assistant | DX: N10 Acute pyelonephritis (principal); N39.0 Urinary tract infection, site not specified; B96.20 Unspecified Escherichia coli [E. coli] as the cause of diseases classified elsewhere | CPT/HCPCS: 87086; 87088; 87186 ==

== ENCOUNTER 2024-02-09 21:29 | Emergency (ER) | payer OTHER, SELFPAY ==
[2024-02-09 21:41] VITALS: BP 148/76; PULSE 120; RESP 20; TEMP 36.9; O2SAT 93; BMI 108.1
--- NOTE | 2024-02-09 21:44 | PC.NURSE ---
Pt placed on 2 lpm per nasal cannula per her home routine Skin pink warm and dry No rash noted Resp full and easy. Speech clear and appropriate at bedside. Lungs clear to posterior auscultation.
--- OUTSIDE RECORDS SUMMARY | 2024-02-09 21:44 | XMS_ITS | Data Portability ---
Author Organization [facility] [employer] [facility] Address [address] [place] [address] Assessment No assessment recorded. Plan of Treatment Reminders Order Date Submit Date Provider Last Modified By Organization Details Last Modified Time Details Appointments FOLLOW UP 30 2024 10:30A M Jamilah Severino PA-C Not available Not available Not available Lab None recorded. Referral None recorded. Procedures None recorded. Surgeries None recorded. Imaging None recorded. Medication Orders fluticaso ne propionat e 50 mcg/actua tion nasal spray,nahid pension 2023 [facility], [address], [place], [address], 01/08/2024 10:45:12 diclofena c sodium 75 mg tablet,de layed release 2023 [facility], [address], [place], [address], 01/08/2024 10:39:03 tramadol 50 mg tablet 2023 [facility], [address], [place], [address], 01/08/2024 13:22:54 famotidin e 20 mg tablet 2023 024 [facility], [address], [place], [address], 01/08/2024 10:38:55 budesonid e 0.5 mg/2 mL suspensio n for nebulizat ion 2023 [facility], [address], [place], [address], 01/08/2024 10:39:04 ipratropi um 0.5 mg-albute rol 3 mg (2.5 mg base)/3 mL nebulizat ion soln 2023 [facility], [address], [place], [address], 01/08/2024 10:45:03 Spiriva with HandiH[employer] r 18 mcg and inhalatio n capsules 2023 [facility], [address], [place], [address], 01/08/2024 10:45:06 ropinirol e 1 mg tablet 2023 [facility], [address], [place], [address], 01/08/2024 10:45:00 aspirin 81 mg tablet,de layed release 2023 [facility], [address], [place], [address], 01/08/2024 10:39:03 lisinopri l 20 mg-hydroc hlorothia zide 25 mg tablet 2023 [facility], [address], [place], [address], 01/08/2024 10:45:09 furosemid e 20 mg tablet 2023 024 [facility], [address] [place], [address], 01/08/2024 10:45:00 Patient TargetsNo targets recorded. Patient Instructions Encounter Date Encounter Id Patient Instructions Last Modified By Organization Details Last Modified Time 01/08/2024 [id number] allergies: care instructions [email or web address] Not available 01/08/2024 10:38:19 Reason for Referral None Reported. Problems Name Problem SNOMED Code Status Onset Date Resolution Date Notes Provider Name and Address Organization Details Recorded Time Chronic obstructive pulmonary disease 39130646 Active 2023 HEBER Mcqueen [address] [place] [address], [address], [employer] 10:31:54 Morbid obesity 408004791 Active 2023 HEBER Mcqueen [address] [place] [address], [address] 8, [employer] 10:32:19 Congestive heart failure 37012816 Active 2023 HEBER Mcqueen [address] [place] [address], [address] 8, [employer] 10:32:38 Restless legs 86569620 Active 2023 HEBER Mcqueen [address] [place] [address], [address] 8, [employer] 10:32:46 Gastroesophage al reflux disease 422572101 Active 2023 HEBER Mcqueen [address] [place] [address], [address] 8, [employer] 10:33:32 Essential hypertension 74270697 Active 2023 HEBER Mcqueen [address] [place] [address], [address] 8, [employer] 10:34:06 Degeneration of lumbar intervertebral disc 04299977 Active 2023 HEBER Mcqueen [address] [place] [address], [address] 8, [employer] 10:34:32 Allergic rhinitis 84419944 Active 2023 HEBER Mcqueen [address] [place] [address], [address] 8, [employer] 10:38:10 Acute urinary tract infection 410064598 Active 2023 HEBER Mcqueen [address] [place] [address], [address] 8, [employer] 12:45:30 Problem Notes None recorded. Procedures Surgical History Date Name Laterality Status Provider Name and Address Organization Details Recorded Time 10/23/19 24 Most Recent Mammogram completed [employer] 01/08/2024 10:04:48 Caesarean Section completed [employer] 01/08/2024 10:04:49 Hernia Repair completed [employer] 01/08/2024 10:04:49 Joint Replacement completed [employer] 01/08/2024 10:17:04 Tonsillectomy completed [employer] 01/08/2024 10:04:49 Tubal Ligation completed [employer] 01/08/2024 10:04:49 Gallbladder Surgery completed [employer] 01/08/2024 10:04:49 Partial Hysterectomy completed [employer] 01/08/2024 10:04:49 Imaging Results None recorded. Procedure Notes None recorded. Medical Equipment None Reported. Allergies Allergen ID Allergen Name Allergen Category Reaction Reaction Severity Criticality Documentation Date Start Date Code Code System Note Provider Name and Address Organization Details Recorded Time 06582 morphine medicatio n Not available Not available Not available 01/08/2024 7052 RxNorm [employer] 10:05:33 48086 Celebrex medicatio n Not available Not available Not available 01/08/2024 61492 7 RxNorm Bambi Vice null, [employer] 10:05:41 88807 codeine medicatio n Not available Not available Not available 01/08/2024 2670 RxNorm Bambi Vice null, [employer] 10:05:46 75030 Lomotil medicatio n Not available Not available Not available 01/08/2024 00322 RxNorm Bambi Vice null, [employer] 10:06:54 50699 meloxicam medicatio n Not available Not available Not available 01/08/2024 58509 RxNorm Bambi Vice null, [employer] 10:07:00 36197 clonidine medicatio n Not available Not available Not available 01/08/2024 2599 RxNorm Bambi Vice null, [employer] 10:07:07 Medications Name Sig Start Date Stop Date Status Note LastModified by Organization Details LastModified Time fluconazole 100 mg tablet 01/07 completed Not Available Not Available Not Available ropinirole 1 mg tablet Take 1 tablet every day by oral route at bedtime for 90 days, for restless legs syndrome. active Not Available Not Available No t Available ipratropium 0.5 mg-albutero l 3 mg (2.5 mg base)/3 mL nebulizatio n soln Inhale 3 mL 4 times a day by nebulizat ion route as directed for 90 days, for COPD. active Not Available Not Available No t Available phenazopyri dine 200 mg tablet 01/07 completed Not Available Not Available Not Available prednisone 20 mg tablet 01/07 completed Not Available Not Available Not Available aspirin 81 mg tablet,andry yed release Take 1 tablet every day by oral route as directed for 90 days, for blood thinner. active Not Available Not Available No t Available tramadol 50 mg tablet Take 1 tablet every 8 hours by oral route as directed for 30 days, for back pain. active Not Available Not Available No t Available spironolact one 25 mg tablet 01/07 completed Not Available Not Available Not Available famotidine 20 mg tablet Take 1 tablet every day by oral route as directed for 90 days, for heartburn . active Not Available Not Available No t Available cyanocobala min (vit B-12) 1,000 mcg/mL injection solution active Not Available Not Available Not Available BD Luer-Carmela Syringe 3 mL 25 gauge x 1 01/07 completed Not Available Not Available Not Available budesonide 0.5 mg/2 mL suspension for nebulizatio n Inhale 2 mL twice a day by nebulizat ion route as directed for 90 days, for COPD. active Not Available Not Available No t Available lisinopril 20 mg-hydrochl orothiazide 25 mg tablet TAKE 1 TABLET BY MOUTH EVERY DAY 2023 active Not Available Not Available Not Avai lable diclofenac sodium 75 mg tablet,andry yed release TAKE ONE TABLET BY MOUTH ONCE A DAY 2023 active Not Available Not Available Not Avai lable montelukast 10 mg tablet 01/07 completed Not Available Not Available Not Available furosemide 20 mg tablet Take 1 tablet every day by oral route as directed for 90 days, for fluid/swe lling. active Not Available Not Available No t Available levofloxaci n 500 mg tablet Take 1 tablet every 24 hours by oral route as directed for 7 days, for uti. 2023 active Not Available Not Available Not Avai lable methylpredn isolone 4 mg tablets in a dose pack 01/07 completed Not Available Not Available Not Available cefdinir 300 mg capsule 01/07 completed Not Available Not Available Not Available fluticasone propionate 50 mcg/actuati on nasal spray,suspe nsion Wellfleet 1 spray every day by intranasa l route as directed for 90 days, for allergies . active Not Available Not Available No t Available Spiriva with [employer] 18 mcg and inhalation capsules Inhale 1 capsule every day by inhalatio n route as directed for 90 days, for COPD. 2023 active Not Available Not Available Not Avai lable aspirin 01/07 completed Not Available Not Available Not Available Nucala 100 mg/mL subcutaneou s auto-inject or inject 100mg (THE contents of ONE pen) SUBCUTANE OUSLY EVERY FOUR WEEKS. 01/07 completed Not Available Not Available Not Available aspirin 81 mg capsule Take 1 capsule every day by oral route. active Not Available Not Available No t Available Vitals Date Recorded Body weight Body mass index (BMI) Body height Heart rate Oxygen saturation Oxygen saturation in Arterial blood by Pulse oximetry Inhaled oxygen flow rate Systolic blood pressure Diastolic blood pressure Provider Name and Address Organization Details Last Updated DateTime 679645. 9 g 61.6 kg/m2 165.1 cm 78 /min 98 % 98 % 3 L/min 118 mm[Hg] 81 mm[Hg] Bambi Salas [employer] 10:08:12 Social History Question Answer Notes LastModified by Organizat ion Details LastModified Time Tobacco Smoking Status Former Smoker Bambi Salas [employer] 01/08/2024 10:04:49 Do You Have An Advance Directive? No Information n ot available 01/08/2024 Is Your Home Air Conditioned? Yes Information not available 01/08/2024 What Is Your Level Of Alcohol Consumption? None Information not available 01/08/2024 If You Are , What Was Your Level Of Alcohol Consumption Prior To ? None Information not available 01/08/2024 Do You Wear A Helmet When Biking? No Information not available 01/08/2024 Are You Blind Or Do You Have Difficulty Seeing? No Information n ot available 01/08/2024 Are You Or Have You Been Involved With Bullying? No Information not available 01/08/2024 What Is Your Level Of Caffeine Consumption? Moderate Information not available 01/08/2024 What Type Of Finish Sander Do You Use? None Information not available 01/08/2024 In The 14 Days Before Symptom Onset, Have You Had Close Contact With A Laboratory-confirm ed COVID-19 While That Case Was Ill? No Information n ot available 01/08/2024 In The 14 Days Before Symptom Onset, Have You Had Close Contact With A Person Who Is Under Investigation For COVID-19 While That Person Was Ill? No Information not available 01/08/2024 Have You Been To An Area Known To Be High Risk For COVID-19? No Information not available 01/08/2024 Are You Currently Employed? No Information not available 01/08/2024 Are You Deaf Or Do You Have Serious Difficulty Hearing? No Information not available 01/08/2024 What Type Of Diet Are You Following? REGULAR Information n ot available 01/08/2024 Have There Been Any Changes To Your Family Or Social Situation? No Information no t available 01/08/2024 When Did You Quit Smoking? 16+yearssince lastcigarette Information not available 01/08/2024 Are There Any Guns Present In Your Home? No Information not available 01/08/2024 Which Of Your Hands Is Dominant? Right Information n ot available 01/08/2024 What Is Your Home Situation? Other Information not available 01/08/2024 Do You Have A Medical Power Of Materials Inspector? No Information not available 01/08/2024 What Was The Date Of Your Most Recent Tobacco Screening? 01/08/2024 Information not available 01/08/2024 Do You Have Any Pets? Yes Information not available 01/08/2024 Do You Use Protection During Sex? No Information not available 01/08/2024 What Is Your Relationship Status? Information not available 01/08/2024 Have You Repeated Any Grades? Yes Information not available 01/08/2024 Do You Use Your Seat Belt Or Car Seat Routinely? Yes Information not available 01/08/2024 Are You Sexually Active? Yes Information not available 01/08/2024 Do You Have Any Siblings? 2 Brothers And 2 Sisters. Both Sisters . Information not available 01/08/2024 Do You Have Smoke And Carbon Monoxide Detectors In Your Home? Yes Information not available 01/08/2024 At What Age Did You Start Smoking Tobacco? 28 Information not available 01/08/2024 Are You Passively Exposed To Smoke? No Information no t available 01/08/2024 Are There Any Smokers In Your House? No Information not available 01/08/2024 How Much Tobacco Do You Smoke? No Information not available 01/08/2024 Do You Use Any Illicit Or Recreational Drugs? No Information not available 01/08/2024 Do You Use Sunscreen Routinely? No Information not available 01/08/2024 Has Tobacco Cessation Counseling Been Provided? No Information not available 01/08/2024 How Many Years Have You Smoked Tobacco? 13 Information not available 01/08/2024 Have You Recently Traveled Abroad? No Information not available 01/08/2024 Are You Currently In School? No Information not available 01/08/2024 Do You Have Any Dietary Restrictions? No Information not available 01/08/2024 Do You Or Have You Ever Used Any Other Forms Of Tobacco Or Nicotine? No Information not available 01/08/2024 Sex: Female Functional Status Question Answer Note LastModified by Organizat ion Details LastModified Time Do you have difficulty walking or climbing stairs? Yes Information not available 01/08/2024 Do you have transportation difficulties? No Information not available 01/08/2024 Are you able to walk? YESWOREST Information not available 01/08/2024 Do you have difficulty doing errands alone? No Information not available 01/08/2024 Are you able to care for yourself? Yes Information not available 01/08/2024 Do you have difficulty dressing or bathing? No Information not available 01/08/2024 What is your exercise level? None Information not available 01/08/2024 Mental Status Question Answer Note LastModified by Organization D etails LastModified Time Do you have difficulty concentrating, remembering or making decisions? No Information no t available 01/08/2024 Family History Relationship Description Onset Age of this Age Resolved Age Notes LastModified by Organization Details LastModified Time Father Heart disease Not available 2023 10:04:48 Medical History Condition Response Allergies (Food, seasonal, environmental ) Y Coronary Artery Disease N Other N Gout N Blood Diseases N Kidney Stones N Hyperthyroidism N Breast Cancer N Blood Transfusion N Emergency room visit since last appointm ent. N Lung Disease Y COPD Y Depression N Hypothyroidism N Dermatologic Disorders N Defects or Inherited Disease N Developmental or Behavioral Disorders N Breast Problem N Difficulty Swallowing N Anesthesia Complications N History of STI N Anxiety Disorder N Meniere's disease N Autoimmune disease N Muscle, Joint, or Bone Problems Y Obesity Y Vision or Eye Problems N Arthritis Y Infertility N Polyps N Mental Disorder N Congenital Anomalies N Acid Reflux (GERD) Y Cancer N Stroke N Neurologic/Epilepsy N Endometriosis N Bladder or Kidney Problems N High Cholesterol N Liver Disease N Organ Transplant N Psychiatric/Mental Health Condition N Dialysis N Schizophrenia N Headaches N Fibromyalgia N Kidney Disease N Allergies/Hayfever N Heart Problems N Ear or Hearing Problems N Hospitalizations N Learning Disorder N Artificial Joints Y Thyroid Problems N GI Problems N Acne N ADD/ADHD N Eating Disorder N Anemia N Constipation N Mental Illness N Diabetes N Ovarian Cancer N Bedwetting N Hepatitis/Liver Disease N Tuberculosis N Eczema N Abuse/Domestic Violence N Diverticulitis N Asthma Y Trauma/Violence N Substance Abuse N Reflux/GERD N Depression/ depression N Hepatitis N Heart Disease N Pulmonary Embolism N Tourette Syndrome N Chronic Ear Infections N Pre-Eclampsia N Hypertension Y Chicken Pox N Autism Spectrum Disorder (ASD) N Osteoporosis N Thrombophilias N Gynecological History Statement/Question Response If Post Menopausal, Age at Menopause 36 Menses Monthly N HPV Vaccine N Date of Last Pap Smear Current Control Method Menopause Most Recent Mammogram 10/23/2023 Age at First Child 16 Obstetrics History GPAL:G 0 P 0 0 0 0 Immunizations Vaccine Type Date Status Provider Name and Address Organization Details Recorded Time Influenza, split virus, trivalent, PF 01/08/2024 completed HEBER Mcqueen [address] [place] [address], [address], [facility] [employer] [facility] 01/08/2024 15:02:31 Past Encounters Encounter ID Performer Location Encounter Start Date Encounter Closed Date Diagnosis/Indication Diagnosis SNOMED-CT Code Diagnosis ICD10 Code [id number] HEBER Mcqueen [address] [place] [address] 01/08/2024 09:56:00 01/08/2024 11:05:13 Chronic obstructive pulmonary disease 54705780 J44.9 Dependence on supplemental oxygen 6994282567 07 Z99.81 Morbid obesity 517335520 E66.01 Gastroesop hageal reflux disease 262597666 K21.9 Congestive heart failure 47530836 I50.9 Restless legs 77709775 G 25.81 Essential hypertension 76713587 I10 Degenerati on of lumbar intervertebral disc 54834053 M51.369 Allergic rhinitis 488173 04 J30.9 Administra tion of influenza vaccine 03867781 Z23 Health Concerns Section Related Observation LastModified by Organization Detai ls LastModified Time None Recorded Concern Status LastModified by Organization Details LastModified Time None Recorded Advance Directives Directive N: Payers Encounter Date Sequence Insurance Name Policy Number Policy White Covered Member ID White Member ID Guarantor Name 01/08/2024 1 [employer] - [employer] (PPO) Roseanne Maharaj [id number] Roseannesotero Maharaj Notes Date Note Type Note Provider Name and Address Organization Details Recorded Time 01/08/2024 text/html Patient presents to establish care.History of COPD. Now on oxygen all the time. Under the care of Dr Nieto, pulmonology.Histo ry of GERD. Needs refills.History CHF. Uses lasix PRN. No recent exacerbations.His tory RLS. Fairly well controlled with requip.History HTN. Doing fairly well on current meds. Denies headache, chest pain, vertigo, dyspnea.History allergic rhinitis.History low back pain. Getting worse. Doesn't really want surgery or interventions, but does ask if there are meds that may help with the pain. HEBER Mcqueen [address] [place] [address], [place], [address], [facility] [employer] 01/08/2024 15:10:01 OBGyn Episode No OBEpisode recorded.
--- OUTSIDE RECORDS SUMMARY | 2024-02-09 21:44 | XMS_ITS | Continuity of Care Document ---
Author Organization [place] - [employer] Written [facility] Address [address] [address] Assessment No assessment recorded. Plan of Treatment [...] 50 mcg/actua tion nasal spray,nahid pension 2023 [facility], [address], [place], [address], 01/08/2024 10:45:12 diclofena c sodium 75 mg tablet,de layed release [address]23 [facility], [address], [place], [address], 01/08/2024 10:39:03 tramadol 50 mg tablet [address] [facility], [address], [place], [address], 01/08/2024 13:22:54 famotidin e [address] [facility], [address], [place], [address], 01/08/2024 10:38:55 budesonid e 0.5 mg/2 mL suspensio n for nebulizat ion [address]23 [facility], [address], [place], [address], 01/08/2024 10:39:04 ipratropi um 0.5 mg-albute rol 3 mg (2.5 mg base)/3 mL nebulizat ion soln [address]23 [facility], [address], [place], [address], 01/08/2024 10:45:03 Spiriva with [employer] r 18 mcg and inhalatio n capsules [address]23 [facility], [address], [place], [address], 01/08/2024 10:45:06 ropinirol e [address] [facility], [address], [place], [address], 01/08/2024 10:45:00 aspirin 81 mg tablet,de layed release [address]23 [facility], [address], [place], [address], 01/08/2024 10:39:03 lisinopri l 20 mg-hydroc hlorothia zide [address] [facility], [address], [place], [address], 01/08/2024 10:45:09 furosemid e 20 mg tablet 2023 024 [facility] [place], [address] [facility] [place], [address], 01/08/2024 10:45:00 Patient TargetsNo targets recorded. Patient Instructions Encounter Date Encounter Id Patient Instructions Last Modified By Organization Details Last Modified Time 01/08/2024 [id number] allergies: care instructions Not available 01/08/2024 10:38:19 Reason for Referral None Reported. Problems Name Problem SNOMED Code Status Onset Date Resolution Date Notes Provider Name and Address Organization Details Recorded Time Chronic obstructive pulmonary disease 09891335 Active 2023 HEBER Mcqueen [address] [place] [address], [address], [employer] 10:31:54 Morbid obesity 446181679 Active 2023 HEBER Mcqueen [address] [place] [address], [address] 8, [employer] 10:32:19 Congestive heart failure 58878737 Active 2023 HEBER Mcqueen [address] [place] [address], [address] 8, [employer] 10:32:38 Restless legs 48883326 Active 2023 HEBER Mcqueen [address] [place] [address], [address] 8, [employer] 10:32:46 Gastroesophage al reflux disease 919783441 Active 2023 HEBER Mcqueen [address] [place] [address], [address] 8, [employer] 10:33:32 Essential hypertension 46380795 Active 2023 HEBER Mcqueen [address] [place] [address], [address]90[address] 8, [employer] 10:34:06 Degeneration of lumbar intervertebral disc 78386038 Active 2023 Jamilah Severino HEBER [address] [place] [address], [address] 8, [employer] 10:34:32 Allergic rhinitis 49401585 Active 2023 Jamilah Severino HEBER [address] [place] [address], [address] 8, [employer] 10:38:10 Acute urinary tract infection 261016100 Active 2023 Jamilah SeverinoHEBER [address] [place] [address], [address] 8, [employer] 12:45:30 Problem Notes None recorded. Procedures Surgical History Date Name Laterality Status Provider Name and Address Organization Details Recorded Time 10/23/19 24 Most Recent Mammogram completed [employer] 01/08/2024 10:04:48 Caesarean Section completed [employer] 01/08/2024 10:04:49 Hernia Repair completed [employer] 01/08/2024 10:04:49 Joint Replacement completed [employer] 01/08/2024 10:17:04 Tonsillectomy completed [employer] 01/08/2024 10:04:49 Tubal Ligation completed [employer] 01/08/2024 10:04:49 Gallbladder Surgery completed [employer] 01/08/2024 10:04:49 Partial Hysterectomy completed [employer] 01/08/2024 10:04:49 Imaging Results None recorded. Procedure Notes None recorded. Medical Equipment None Reported. Allergies Allergen ID Allergen Name Allergen Category Reaction Reaction Severity Criticality Documentation Date Start Date Code Code System Note Provider Name and Address Organization Details Recorded Time 01172 morphine medicatio n Not available Not available Not available 01/08/2024 7052 [employer] 10:05:33 68046 Celebrex medicatio n Not available Not available Not available 01/08/2024 06453 7 RxNorm Bambi Vice null, [employer] 10:05:41 68930 codeine medicatio n Not available Not available Not available 01/08/2024 2670 RxNorm Bambi Vice null, [employer] 10:05:46 85952 Lomotil medicatio n Not available Not available Not available 01/08/2024 31833 RxNorm Bambi Vice null, [employer]. 10:06:54 04418 meloxicam medicatio n Not available Not available Not available 01/08/2024 54729 RxNorm Bambi Vice null, [employer] 10:07:00 73329 clonidine medicatio n Not available Not available Not available 01/08/2024 2599 RxNorm Bambi Vice null, [employer] 10:07:07 Medications Name Sig Start Date [...] propionate 50 mcg/actuati on nasal spray,suspe nsion Linn 1 spray every day by intranasa l [...] and Address Organization Details Last Updated DateTime 581208. 9 g 61.6 kg/m2 165.1 cm 78 /min 98 % 98 % 3 L/min 118 mm[Hg] 81 mm[Hg] Bambi Salas [employer]. 10:08:12 Social History Question Answer Notes LastModified by Organizat ion Details LastModified Time Tobacco Smoking Status Former Smoker Bambi Salas [employer]. 01/08/2024 10:04:49 Do You Have An Advance [...] Information not available 01/08/2024 What Type Of Athletic Team Physician Do You Use? None Information not available [...] Do You Have A Medical Power Of Pigment Weigher? No Information not available 01/08/2024 What Was [...] Diseases N Kidney Stones N Hyperthyroidism N Blood Transfusion N Breast Cancer N Emergency room visit since last appointm ent. N Lung Disease Y COPD Y Depression N Dermatologic Disorders N Hypothyroidism N Defects or Inherited Disease N Developmental or Behavioral Disorders N Breast Problem N Difficulty Swallowing N Anesthesia Complications N History of STI N Meniere's disease N Anxiety Disorder N Muscle, Joint, or Bone Problems Y Autoimmune disease N Obesity Y Vision or Eye Problems N Arthritis Y Polyps N Infertility N Mental Disorder N Congenital Anomalies N Acid Reflux (GERD) Y Cancer N Stroke N Neurologic/Epilepsy N Endometriosis N Bladder or Kidney Problems N High Cholesterol N Liver Disease N Psychiatric/Mental Health Condition N Organ Transplant N Dialysis N Schizophrenia N Fibromyalgia N Headaches N Kidney Disease N Allergies/Hayfever N Heart [...] virus, trivalent, PF 01/08/2024 completed HEBER Mcqueen [address] [place] [address], [address], [facility] [employer] 01/08/2024 15:02:31 Past Encounters Encounter ID Performer Location Encounter Start Date Encounter Closed Date Diagnosis/Indication Diagnosis SNOMED-CT Code Diagnosis ICD10 Code [id number] HEBER Mcqueen [address] [address] 01/08/2024 09:56:00 01/08/2024 11:05:13 Chronic obstructive pulmonary disease 48408822 J44.9 Dependence on supplemental oxygen 9608200110 07 Z99.81 Morbid obesity 245499636 E66.01 Gastroesop hageal reflux disease 747773087 K21.9 Congestive heart failure 04600338 I50.9 Restless legs 54881576 G 25.81 Essential hypertension 00794956 I10 Degenerati on of lumbar intervertebral disc 97782608 M51.369 Allergic rhinitis 234222 04 J30.9 Administra tion of influenza vaccine 29340765 Z23 Health Concerns Section Related Observation LastModified by Organization Detai ls LastModified Time None Recorded Concern Status LastModified by Organization Details LastModified Time None Recorded Payers Encounter Date Sequence Insurance Name Policy Number Policy White Covered Member ID White Member ID Guarantor Name 01/08/2024 1 [employer] - [employer] (PPO) Roseanne Maharaj [id number] Roseanne Maharaj Notes Date Note Type Note Provider [...] may help with the pain. HEBER Mcqueen [address] [place] [address], [place], [address], [facility] [employer] 01/08/2024 15:10:01 OBGyn Episode No OBEpisode recorded.
--- OUTSIDE RECORDS SUMMARY | 2024-02-09 21:45 | XMS_ITS | Encounter Summary ---
Author Organization [facility] Address [address] [place] [id number] Care Team Providers Care Blow Pit Operator Name Role Phone Jamilah Severino Primary Care Provider [phone] Reason for Referral * Surgical (Routine) - Closed Specialty Diagnoses / Procedures Referred By Conthilary t Referred To Contact Diagnoses Dysphagia, unspecified type Procedures Case Request Albertina Dick PA [address] [place] [address] Phone: tel: fax: [facility] [place] [address] [place] [address] Referral ID Status Reason Start Date Expiration Date Visits Re quested Visits Authorized [id number] Closed 07/21/2017 07/21/2018 1 1 Encounter Details Date Type Department Care Team (Late st Contact Info) Description 07/21/2017 3:30 PM EDT Office Visit [facility] BARI[facility]IC SUR[facility]ERY [address] [place] [address] Albertina Dick PA [address] [place] [address] Dysphagia, unspecified type (Primary Dx); Morbid obesity; S/P bariatric surgery Social History Tobacco Use Types Packs/Day Years Used Date Smoking Tobacco: Former Cigarettes Q uit: 2006 Smokeless Tobacco: Never Alcohol Use Standard Drinks/Week Comments No 0 (1 standard drink = 0.6 oz pur e alcohol) Comments No Sex and Gender Information Value Date Recorded Sex Assigned at Not on file Legal Sex Female 11:43 AM EDT Gender Identity Not on file Sexual Orientation Not on file documented as of this encounter Last Filed Vital Signs Vital Sign Reading Time Taken Comments Blood Pressure 173/102 07/21/2017 3:23 PM EDT Pulse 88 07/21/2017 3:23 PM EDT Temperature 36.3 ??C (97.3 ??F) 07/21/2017 3:23 PM ED T Respiratory Rate 18 07/21/2017 3:23 PM EDT Oxygen Saturation 99% 07/21/2017 3:23 PM EDT Inhaled Oxygen Concentration - - Weight 136 kg (300 lb 8.2 oz) 07/21/2017 3:23 PM EDT Height 166.4 cm (5' 5.5 ) 07/21/2017 3:23 PM EDT Body Mass Index 49.25 07/21/2017 3:23 PM EDT documented in this encounter Progress Notes * Albertina Dick PA - 07/21/2017 3:30 PM EDT [facility] Bariatric Surgery [address] [address] Patient Name: Roseanne Maharaj. : 1960 Date of Visit: 07/21/2017 Reason for Visit: AGB followup HPI: Roseanne Maharaj is a 57 y.o. 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 Bonilla. She is aware that Dr. Bonilla is now in [place]. Prefers to stay w/ [facility] in [place]. She lives in [place]. Presented earlier this month wanting to get back on track. SONYA prior 2010. Expected band vol 7.7cc.UGI 07/09/17 shows esophageal dilatation w/ slight unilateral pouch enlargement. Needs unfill. Returns today saying she is over the lapband. Now knowing that there is an issue w/ her lapband, she just feels it is not going to work for her. Admits to episodic dysphagia/vomiting. Needing to lose weight in order to have a knee replacement. Wants to discuss revision options. Past Medical History: Diagnosis Date ??? Arthritis ??? Dyspepsia ??? Fatigue ??? Hypertension uncontrolled ??? Joint pain ??? Morbid obesity ??? Vitamin D deficiency Past Surgical History: Procedure Laterality Date ??? SECTION 1977, 1978, 1984 ??? CHOLECYSTECTOMY 1991 ??? HERNIA REPAIR 1993 x2 ??? LAPAROSCOPIC GASTRIC BANDING 04/14/2008 JSO ??? OOPHORECTOMY 1995 ??? TONSILLECTOMY 1965 ??? TUBAL ABDOMINAL LIGATION 1984 Allergies Allergen Reactions ??? Celebrex [Celecoxib] Shortness Of Breath ??? Lomotil [Diphenoxylate] Swelling ??? Adhesive Tape Rash ??? Codeine Palpitations ??? Morphine And Related Palpitations Tightness in chest Outpatient Prescriptions Marked as Taking for the 07/21/17 encounter (Office Visit) with HEBER Driscoll Medication Sig Dispense Refill ??? diclofenac (VOLTAREN) 75 MG EC tablet TAKE 1 TABLET BY MOUTH TWICE A DAY WITH FOOD OR MILK 2 ??? vitamin D (ERGOCALCIFEROL) 74146 units capsule capsule TAKE 1 CAPSULE TWICE WEEKLY 2 Social History Social History ??? Marital status: Spouse name: N/A ??? Number of children: N/A ??? Years of education: N/A Occupational History ??? Not on file. Social History Main Topics ??? Smoking status: Former Smoker Quit date: 2005 ??? Smokeless tobacco: Never Used ??? Alcohol use No ??? Drug use: No ??? Sexual activity: Not on file Other Topics Concern ??? Not on file Social History Narrative ??? No narrative on file BP (!) 173/102 (BP Location: Left arm, Patient Position: Sitting, Cuff Size: Large Adult) Pulse 88 Temp 97.3 ??F (36.3 ??C) (Temporal Artery ) Resp 18 Ht 166.4 cm (65.5 ) Wt (!) 136 kg (300lb 8.2 oz) LMP (LMP Unknown) SpO2 99% BMI 49.25 kg/m?? Physical Exam Constitutional: She appears well-developed and well-nourished. She is cooperative. obese HENT: Mouth/Throat: Oropharynx is clear and moist and mucous membranes are normal. Eyes: Conjunctivae are normal. No scleral icterus. Cardiovascular: Normal rate. Pulmonary/Chest: Effort normal. Abdominal: Soft. Bowel sounds are normal. There is no tenderness. LLQ port - site unremarkable Musculoskeletal: Normal range of motion. She exhibits no edema. Neurological: She is alert. Skin: Skin is warm and dry. No rash noted. Psychiatric: She has a normal mood and affect. Judgment normal. Band Adjustment Info Band Type: Realize C Port Location: LLQ Procedure Position: supine Needle Type: short Local Anesthesia: with 1% lidocaine and bicarb Amount Expected (cc): 7.7 Amount Added (cc): Amount Removed (cc): -7.0cc clear fluid Total Amount (cc): 0.7cc possibly Able to melinda water after ADJ? YES Other Notes: patient says afraid of needles Assessment: s/p LAGB Realize C 03/2008 w/ Dr. Bonilla ICD-10-CM ICD-9-CM 1. Dysphagia, unspecified type R13.10 787.20 2. Morbid obesity E66.01 278.01 3. S/P bariatric surgery Z98.84 V45.86 Plan: Reviewed UGI results. Unfilled lapband in office w/out difficulty. Advised warm liquids x 24 hrs w/ gradual diet progression. Plan EGD for further eval. Revision packet given to patient. HEBER Driscoll documented in this encounter Plan of Treatment Not on file documented as of this encounter Visit Diagnoses Diagnosis Dysphagia, unspecified type- Primary Morbid obesity S/P bariatric surgery documented in this encounter Care Teams Blow Pit Operator Relationship Specialty Start Date End Date Jamilah Severino PA PCP - General Physician Sciences Dean 11/24/15 documented as of this encounter
--- OUTSIDE RECORDS SUMMARY | 2024-02-09 21:45 | XMS_ITS | Encounter Summary ---
Author Organization [facility] Address [address] [place] [id number] Care Team Providers Care Management Trainee Name Role Phone Jamilah Severino Primary Care Provider [phone] Encounter Details Date Type Department Care Team (Late st Contact Info) Description 09/19/2017 Telephone [facility] BARIATRIC SURGERY [address] [place] [address] Lexi De Los Santos PA-C Social History Tobacco Use Types Packs/Day Years [...] on file documented as of this encounter Miscellaneous Notes * Telephone Encounter - Jett Kennedy MA - 09/19/2017 1:40 PM EDT Spoke with pt and transferred her to [facility] to get on the schedule. * Telephone Encounter - Jett Kennedy MA - 09/19/2017 8:47 AM EDT Pt called in and stated that she is still in a lot of pain from having her lapband removed, and that her largest incision site is very swollen. She states there is no drainage or puss, but that it isvery tender. Please advise. Thanks. documented in this encounter Plan of Treatment Not on file documented as of this encounter Visit Diagnoses Not on filedocumented in this encounter Care Teams Management Trainee Relationship Specialty Start Date End Date Jamilah Severino PA PCP - General Physician Multi Skilled Operator 11/24/15 documented as of this encounter
--- OUTSIDE RECORDS SUMMARY | 2024-02-09 21:45 | XMS_ITS | Encounter Summary ---
Author Organization [facility] Address [address] [place] [address] Care Team Providers Care Inspector Insulation Name Role Phone Jamilah Severino Primary Care Provider [phone] Reason for Visit * Auth/Cert Specialty Diagnoses / Procedures Referred By Contac t Referred To Contact Diagnoses Dysphagia, unspecified type Dysphagia, unspecified type [R13.10] Procedures ESOPHAGOGASTRODUODENOSCOPY Referral ID Status Reason Start Date Expiration Date Visits Re quested Visits Authorized [id number] 1 1 Encounter Details Date Type Department Care Team (Late st Contact Info) Description 08/06/2017 10:46 AM EDT Anesthesia Event [facility] [address] [place] [phone] Willi Quinones MD [address] [place] [address] Anesthesia Record Procedure Summary Procedure Name Responsible Anesthesiologist Anesthesia Start Time Anesthesia Stop Time ESOPHAGOGASTRODUODENOSCOPY W ITH BIOPSY (Esophagus) Willi Quinones MD 08/06/17 1046 08/06/17 1105 Events Date Time Event Comment 08/06/2017 0903 1042 AN Equip Check 1046 An Start Data 1046 An Start 1054 An Induction The patient was reevaluated immediately before moderate or deep sedation use and before anesthesia induction. 1101 an stop data 1105 Handoff to RN The following has been completed: 1. Identification of Patient, calles family member(s) or patient surrogate 2. Identification of the responsible Practitioner (primary service) 3. Discussion of the pertinent/attainable medical history 4. Discussion of the surgical/procedure course (procedure, reason for surgery, procedure performed) 5. Intraoperative anesthetic management and issue/concerns to include things such as airway, hemodynamics, narcotic, sedation level and paralytic management and intravenous fluids/blood products and urine output during the procedure 6. Expectations/Plans for the early post-procedure period to include things such as anticipated course (anticipatory guidance), complications, need for laboratory or ECG and medication administration 7. Opportunity for questions and acknowledgment of understanding of report from the receiving PACU/ICU team 1105 An Stop Meds Name Total propofol (DIPRIVAN) 10 mg/ml 100 mg * Agents Name O2 * Blood No blood administrations on file. Lines, Drains, and Airways Type Details Placement Removal Peripheral IV Placement Date: 07/22 09/08; Placement Time: 0842; Catheter Size: 18 G; Orientation: Left; Location: Antecubital; Site Prep: Chlorhexidine; Local Anes: Injectable; Technique: Anatomical landmarks; Inserted by: Judy Mckeon RN; Insertion Attempts: 1; Patient Tolerance: Tolerated well; Removal Date: 08/06/17; Removal Time: 1150 08/06/17 0842 by Juan Luis Thrasher RN 08/06/17 1150 by Gail Tavarez RN documented in this encounter Social History Tobacco Use Types Packs/Day Years [...] on file documented as of this encounter Progress Notes * Candy Dickinson CRNA - 08/06/2017 11:07 AM EDT Addendum created 08/06/17 1107 by Candy Dickinson CRNA Anesthesia Review and Sign - Signed documented in this encounter OR Notes * Anesthesia Postprocedure Evaluation - Candy Dickinson CRNA - 08/06/2017 11:06 AM EDT Patient: Roseanne Maharaj Procedure Summary Date: 08/06/17 Room / Location: [facility] / [facility] Anesthesia Start: 1046 Anesthesia Stop: 1105 Procedure: ESOPHAGOGASTRODUODENOSCOPY WITH BIOPSY (Esophagus) Diagnosis: Dysphagia, unspecified type Gastric banding status (Dysphagia, unspecified type [R13.10]) Surgeon: Ricki Spence MD Provider: Willi Quinones MD Anesthesia Type: general, MAC ASA Status: 3 Anesthesia Type: general, MAC Last vitals BP 136/79 Temp 97.0 Pulse 85 Resp 16 SpO2 97 Post Anesthesia Care and Evaluation Patient location during evaluation: PACU Patient participation: complete - patient participated Level of consciousness: awake and alert Pain score: 0 Pain management: adequate Airway patency: patent Anesthetic complications: No anesthetic complications PONV Status: none Cardiovascular status: hemodynamically stable and acceptable Respiratory status: nonlabored ventilation, acceptable and nasal cannula Hydration status: acceptable * Anesthesia Preprocedure Evaluation - Willi Quinones MD - 08/06/2017 7:52 AM EDT Anesthesia Evaluation Patient summary reviewed and Nursing notes reviewed NPO Solid Status: > 8 hours NPO Liquid Status: > 8 hours Airway Mallampati: I TM distance: >3 FB Neck ROM: full No difficulty expected Dental (+) edentulous Pulmonary (+) a smoker Former, (-) COPD, asthma, shortness of breath, recent URI Cardiovascular ECG reviewed (+) hypertension, (-) past [place], CAD, dysrhythmias, angina, cardiac stents ROS comment: EKG NSR Neuro/Psych (-) seizures, TIA, CVA GI/Hepatic/Renal/Endo (+) morbid obesity, GERD, (-) liver disease, no renal disease, diabetes, hypothyroidism Musculoskeletal Abdominal Substance History COST ACCOUNTING MANAGER Other (+) arthritis Anesthesia Plan ASA 3 general and MAC (Propofol ) intravenous induction Anesthetic plan and risks discussed with patient. Plan discussed with ACID DUMPER. documented in this encounter Plan of Treatment Not on file documented as of this encounter Visit Diagnoses Not on filedocumented in this encounter Administered Medications Inactive Administered Medications - up to 3 most recent administrations Medication Order MAR Action Action Date Dose Rate Site Propofol (DIPRIVAN) injection Intravenous, As Needed, Starting on Fri08/06/17 at 1054 Given 08/06/2017 10:54 AM EDT 100 mg documented in this encounter Care Teams Inspector Insulation Relationship Specialty Start Date End Date Jamilah Severino PA PCP - General Physician Laborer Livestock 11/24/15 documented as of this encounter
--- OUTSIDE RECORDS SUMMARY | 2024-02-09 21:45 | XMS_ITS | Encounter Summary ---
[facility] Address [address] [place] [id number] Care Team Providers Care Resource Conservationist Name Role Phone Jamilah Severino Primary Care Provider [phone] Reason for Visit * Reason Comments Sore Throat Encounter Details Date Type Department Care Team (Late st Contact Info) Description 02/21/2017 5:00 PM EST Office Visit [address] [place] [address] Strep throat (Primary Dx); Herpes simplex Social History Tobacco Use Types Packs/Day Years Used Date Smoking Tobacco: Never Comments No Sex and Gender Information Value Date Recorded Sex Assigned at Not on file Legal Sex Female 11:43 AM EDT Gender Identity Not on file Sexual Orientation Not on file documented as of this encounter Last Filed Vital Signs Vital Sign Reading Time Taken Comments Blood Pressure - - Pulse - - Temperature 37.2 ??C (99 ??F) 02/21/2017 5:06 PM EST Respiratory Rate 18 02/21/2017 5:06 PM EST Oxygen Saturation - - Inhaled Oxygen Concentration - - Weight 140 kg (308 lb) 02/21/2017 5:06 PM EST Height 165.1 cm (5' 5 ) 02/21/2017 5:06 PM EST Body Mass Index 51.25 02/21/2017 5:06 PM EST documented in this encounter Patient Instructions * Patient Instructions* Celia Gasca APRN - 02/21/2017 5:11 PM EST Images from the original note were not included. Strep Throat Strep throat is a bacterial infection of the throat. Your health care provider may call the infection tonsillitis or pharyngitis, depending on whether there is swelling in the tonsils or at the back of the throat. Strep throat is most common during the cold months of the year in children who are 5-15 years of age, but it can happen during any season in people of any age. This infection is spread from person to person (contagious) through coughing, sneezing, or close contact. CAUSES Strep throat is caused by the bacteria called Streptococcus pyogenes. RISK FACTORS This condition is more likely to develop in: ?? People who spend time in crowded places where the infection can spread easily. ?? People who have close contact with someone who has strep throat. SYMPTOMS Symptoms of this condition include: ?? Fever or chills. ? Redness, swelling, or pain in the tonsils or throat. ?? Pain or difficulty when swallowing. ?? White or yellow spots on the tonsils or throat. ?? Swollen, tender glands in the neck or under the jaw. ?? Red rash all over the body (rare). DIAGNOSIS This condition is diagnosed by performing a rapid strep test or by taking a swab of your throat (throat culture test). Results from a rapid strep test are usually ready in a few minutes, but throat culture test results are available after one or two days. TREATMENT This condition is treated with antibiotic medicine. HOME CARE INSTRUCTIONS Medicines ?? Take vkvi-ldv-ucajohc and prescription medicines only as told by your health care provider. ?? Take your antibiotic as told by your health care provider. Do not stop taking the antibiotic even if you start to feel better. ?? Have family members who also have a sore throat or fever tested for strep throat. They may need antibiotics if they have the strep infection. Eating and Drinking ?? Do not share food, drinking cups, or personal items that could cause the infection to spread to other people. ?? If swallowing is difficult, try eating soft foods until your sore throat feels better. ?? Drink enough fluid to keep your urine clear or pale yellow. General Instructions ?? Gargle with a salt-water mixture 3-4 times per day or as needed. To make a salt-water mixture, completely dissolve ??-1 tsp of salt in 1 cup of warm water. ?? Make sure that all household members wash their hands well. ?? Get plenty of rest. ?? Stay home from school or work until you have been taking antibiotics for 24 hours. ?? Keep all follow-up visits as told by your health care provider. This is important. SEEK MEDICAL CARE IF: ?? The glands in your neck continue to get bigger. ?? You develop a rash, cough, or earache. ?? You cough up a thick liquid that is green, yellow-brown, or bloody. ?? You have pain or discomfort that does not get better with medicine. ?? Your problems seem to be getting worse rather than better. ?? You have a fever. SEEK IMMEDIATE MEDICAL CARE IF: ?? You have new symptoms, such as vomiting, severe headache, stiff or painful neck, chest pain, or shortness of breath. ?? You have severe throat pain, drooling, or changes in your voice. ?? You have swelling of the neck, or the skin on the neck becomes red and tender. ?? You have signs of dehydration, such as fatigue, dry mouth, and decreased urination. ?? You become increasingly sleepy, or you cannot wake up completely. ?? Your joints become red or painful. This information is not intended to replace advice given to you by your health care provider. Make sure you discuss any questions you have with your health care provider. Document Released: 03/07/2001 Document Revised: 11/29/2015 Document Reviewed: 07/03/2015 Spreadsave Interactive Patient Education ??2017 [email or web address]. Cold Sore A cold sore (fever blister) is a skin infection caused by the herpes simplex virus (HSV-1). HSV-1 is closely related to the virus that causes genital herpes (HSV-2), but they are not the same even though both viruses can cause oral and genital infections. Cold sores are small, fluid-filled sores inside of the mouth or on the lips, gums, nose, chin, cheeks, or fingers. The herpes simplex virus can be easily passed (contagious) to other people through close personal contact, such as kissing or sharing personal items. The virus can also spread to other parts of the body, such as the eyes or genitals. Cold sores are contagious until the sores crust over completely. They often heal within 2 weeks. Once a person is infected, the herpes simplex virus remains permanently in the body. Therefore, there is no cure for cold sores, and they often recur when a person is tired, stressed, sick, or gets too much sun. Additional factors that can cause a recurrence include hormone changes in menstruation or , certain drugs, and cold weather. CAUSES Cold sores are caused by the herpes simplex virus. The virus is spread from person to person through close contact, such as through kissing, touching the affected area, or sharing personal items suchas lip balm, razors, or eating utensils. SYMPTOMS The first infection may not cause symptoms. If symptoms develop, the symptoms often go through different stages. Here is how a cold sore develops: ?? Tingling, itching, or burning is felt 1-2 days before the outbreak. ? Fluid-filled blisters appear on the lips, inside the mouth, nose, or on the cheeks. ? The blisters start to ooze clear fluid. ? The blisters dry up and a yellow crust appears in its place. ? The crust falls off. ?? Symptoms depend on whether it is the initial outbreak or a recurrence. Some other symptoms with thefirst outbreak may include: ?? Fever. ? Sore throat. ? Headache. ? Muscle aches. ? Swollen neck glands. ?? DIAGNOSIS A diagnosis is often made based on your symptoms and looking at the sores. Sometimes, a sore may beswabbed and then examined in the lab to make a final diagnosis. If the sores are not present, bloodtests can find the herpes simplex virus. TREATMENT There is no cure for cold sores and no vaccine for the herpes simplex virus. Within 2 weeks, most cold sores go away on their own without treatment. Medicines cannot make the infection go away, but medicine can help relieve some of the pain associated with the sores, can work to stop the virus from multiplying, and can also shorten healing time. Medicine may be in the form of creams, gels, pills,or a shot. HOME CARE INSTRUCTIONS ?? Only take aquy-xlu-qifguzk or prescription medicines for pain, discomfort, or fever as directed by your caregiver. Do not use aspirin. ? Use a cotton-tip swab to apply creams or gels to your sores. ? Do not touch the sores or pick the scabs. Wash your hands often. Do not touch your eyes without washing your hands first. ? Avoid kissing, oral sex, and sharing personal items until sores heal. ? Apply an ice pack on your sores for 10-15 minutes to ease any discomfort. ? Avoid hot, cold, or salty foods because they may hurt your mouth. Eat a soft, bland diet to avoid irritating the sores. Use a straw to drink if you have pain when drinking out of a glass. ? Keep sores clean and dry to prevent an infection of other tissues. ? Avoid the sun and limit stress if these things trigger outbreaks. If sun causes cold sores, apply sunscreen on the lips before being out in the sun. ?? SEEK MEDICAL CARE IF: ?? You have a fever or persistent symptoms for more than 2-3 days. ? You have a fever and your symptoms suddenly get worse. ? You have pus, not clear fluid, coming from the sores. ? You have redness that is spreading. ? You have pain or irritation in your eye. ? You get sores on your genitals. ? Your sores do not heal within 2 weeks. ? You have a weakened immune system. ? You have frequent recurrences of cold sores. ?? MAKE SURE YOU: ?? Understand these instructions. ?? Will watch your condition. ?? Will get help right away if you are not doing well or get worse. This information is not intended to replace advice given to you by your health care provider. Make sure you discuss any questions you have with your health care provider. Document Released: 03/07/2001 Document Revised: 03/31/2015 Document Reviewed: 12/29/2015 Spreadsave Interactive Patient Education ??2017 [employer] documented in this encounter Progress Notes * Celia Gasca APRN - 02/21/2017 5:00 PM EST Subjective Roseanne Maharaj is a 56 y.o. female. Temp 99 ??F (37.2 ??C) Resp 18 Ht 65 (165.1 cm) Wt (!) 308 lb (140 kg) LMP (LMP Unknown) BMI 51.25 kg/m2 Sore Throat This is a new problem. The current episode started in the past 7 days. The problem has been rapidlyworsening. The maximum temperature recorded prior to her arrival was 101 - 101.9 F. The pain is severe. Associated symptoms include congestion, ear pain, headaches and a plugged ear sensation. Pertinent negatives include no coughing, drooling, ear discharge, hoarse voice, neck pain, shortness of breath, stridor, swollen glands, trouble swallowing or vomiting. She has had exposure to strep. The following portions of the patient's history were reviewed and updated as appropriate: allergies, current medications, past family history, past medical history, past social history, past surgicalhistory and problem list. Review of Systems HENT: Positive for congestion, ear pain and sore throat. Negative for drooling, ear discharge, hoarse voice and trouble swallowing. Respiratory: Negative for cough, shortness of breath and stridor. Gastrointestinal: Negative for vomiting. Musculoskeletal: Negative for neck pain. Skin: Positive for wound (cold sore on lower right lip). Neurological: Positive for headaches. Objective Physical Exam Constitutional: She appears well-developed and well-nourished. Non-toxic appearance. She appears ill. HENT: Head: Normocephalic and atraumatic. Cardiovascular: Regular rhythm and normal heart sounds. Pulmonary/Chest: Effort normal. She has no wheezes. She has no rhonchi. She has no rales. Lymphadenopathy: She has no cervical adenopathy. Skin: Skin is warm and dry. Assessment/Plan Roseanne was seen today for sore throat. Diagnoses and all orders for this visit: Strep throat - POC Rapid Strep A Herpes simplex Other orders - cephalexin (KEFLEX) 500 MG capsule; Take 1 capsule by mouth 2 (Two) Times a Day for 10 days. - valACYclovir (VALTREX) 1000 MG tablet; Take 1 tablet by mouth 2 (Two) Times a Day for 2 days. Results for orders placed or performed in visit on 02/21/17 POC Rapid Strep A Result Value Ref Range Rapid Strep A Screen Positive (A) Negative, VALID, INVALID, Not Performed Internal Control Passed Passed Lot Number [id number] Expiration Date 06/09 documented in this encounter Plan of Treatment Not on file documented as of this encounter Procedures Procedure Name Priority Date/Time Associated Diagnosis Comments POCT RAPID STREP A Routine 02/21/2017 5: 36 PM EST Strep throat documented in this encounter Results * (ABNORMAL) POC Rapid Strep A (02/21/2017 5:36 PM EST) Rapid Strep A Screen Positive(A ) Negative, VALID, INVALID, Not Performed [facility] Internal Control Passed Passed [facility] Lot Number [id number] [facility] Expiration Date 06/09 [facility] Swab 02/21/2017 5:36 PM EST Celia Gasca APRN POINT OF CARE TEST OR DERABLES Final Result [facility]
[address] [place] [address], documented in this encounter Visit Diagnoses Diagnosis Strep throat- Primary Streptococcal sore throat Herpes simplex Herpes simplex without mention of complication documented in this encounter Care Teams Resource Conservationist Relationship Specialty Start Date End Date Jamilah Severino PA PCP - General Physician Manager Winter 11/24/15 documented as of this encounter
--- OUTSIDE RECORDS SUMMARY | 2024-02-09 21:45 | XMS_ITS | Clinical Summary ---
Author Organization [facility] Address [address] [place] [id number] Care Team Providers Care Pick Up Man Name Role Phone Jamilah Severino Primary Care Provider [phone] Allergies Active Allergy Reactions Criticality Noted Date Comments Adhesive Tape Rash Low 07/08/2017 Celecoxib Shortness Of Breath High 02/14/2016 Codeine Palpitations Low 11/24/2015 Diphenoxylate Other (See Comments) Medium 02/14/2016 Chest pain Morphine And Codeine Palpitations Low 11/24/2015 Tightness in chest. Percocet, Lortab, dilaudid ok, but has to take nausea medicine with Percocet. Medications vitamin D (ERGOCALCIFEROL ) 44022 units capsule capsule TAKE 1 CAPSULE TWICE WEEKLY 2 06/11/2017 Active naproxen (NAPROSYN) 500 MG tablet Take 500 mg by mouth 2 (Two) Times a Day With Meals. Active lisinopril-hydr ochlorothiazide (PRINZIDE,ZESTO RETIC) 20-25 MG per tablet Take 1 tablet by mouth Daily. Active METOPROLOL SUCCINATE ER PO Take 25 mg by mouth Every Morning. Active traZODone (DESYREL) 50 MG tablet Take 50 mg by mouth Every Night. Active famotidine (PEPCID) 20 MG tablet Take 20 mg by mouth Every Night. Active predniSONE (DELTASONE) 20 MG tablet Take 20 mg by mouth Daily. Active Active Problems Problem Noted Date Diagnosed Date Dysphagia 07/23/2017 Overview (07/23/2017): Added automatically from request for surgery [id number] Essential hypertension 11/24/2015 Osteoarthritis 11/24/2015 Joint pain Morbid obesity Dyspepsia Vitamin D deficiency Fatigue Resolved Problems Problem Noted Date Diagnosed Date Resolved Date Hypertension 07/21/2017 Arthritis 07/21/2017 Family History Medical History Relation Name Comments Heart disease Father Hypertension Father Cancer Mother Cancer Sister Relation Name Status Comments Father Mother Sister Social History Tobacco Use Types Packs/Day Years Used Date Smoking Tobacco: Former Cigarettes Q uit: 2010 Smokeless Tobacco: Never Tobacco Cessation:Counseling Given: Yes Comments:Is not around secondhand smoke in house or car, but occasionally with patients. Alcohol Use Standard Drinks/Week Comments No 0 (1 standard drink = 0.6 oz pur e alcohol) Abuse Screen Answer Date Recorded Unsafe at Home or Work/School Not on file Feels Threatened by Someone? Not on file 11/2022 Does Anyone Keep You from Co ntacting Others or Doint Things Outside the Home? Not on file 12/30/2022 Physical Sign of Abuse Present Not on file 1 Housing Stability Answer Date Recorded Current Living Arrangements Not on file 11/2022 Potentially Unsafe Housing Conditions Not on rafa e 12/30/2022 Family and Community Support Answer Kory e Recorded Help with Day-to-Day Activities Not on file 12/30/2022 Lonely or Isolated Not on file 12/30/2022 Employment Answer Date Recorded Do you want help finding or keeping work or a trevor b? Not on file 12/30/2022 Disabilities Answer Date Recorded Concentrating, Remembering, or Making Decisions Difficulty Not on file 12/30/2022 Doing Errands Independently Difficulty Not on fi le 12/30/2022 Education Answer Date Recorded Help with school or training? 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 Not on file Not on file Last Filed Vital Signs Vital Sign Reading Time Taken Comments Blood Pressure 138/72 11/19/2017 10:38 AM EDT Pulse 66 11/19/2017 10:38 AM EDT Temperature 36.4 ??C (97.5 ??F) 11/19/2017 10:38 AM E DT Respiratory Rate 18 11/19/2017 10:38 AM EDT Oxygen Saturation 99% 11/19/2017 10:38 AM EDT Inhaled Oxygen Concentration - - Weight 146 kg (321 lb 8.2 oz) 11/19/2017 10:38 A M EDT Height 166.4 cm (5' 5.5 ) 11/19/2017 10:38 AM ED T Body Mass Index 52.69 11/19/2017 10:38 AM EDT Plan of Treatment Health Maintenance Due Date Last Done Comments Annual Gynecologic Pelvic an d Breast Exam 1960 COLOGUARD 1960 COLON CANCER SCREENING 5 YEA R SIGMOIDOSCOPY 1960 COLONOSCOPY 1960 COLORECTAL CANCER SCREENING 1960 CT COLONOGRAPHY 1960 FECAL OCCULT BLOOD TEST 1960 FIT Testing (1 year) 1960 MAMMOGRAM 1960 TDAP/TD VACCINES (1 - Tdap) 02/25/1979 ZOSTER VACCINE (1 of 2) 02/25/2010 ANNUAL PHYSICAL 06/23/2016 HEPATITIS C SCREENING 06/23/2016 PAP SMEAR 06/23/2016 INFLUENZA VACCINE 10/23/2023 COVID-19 Vaccine (1 - 2023-2 5 season) 2023 Pneumococcal Vaccine 0-64 Aged Out No longer eligible based on patient's age to complete this topic Medical Devices Implanted Type Area Gas Turbine Assembler Device Identifier Shelf Expiration Date Model / Serial / Lot Gastric Lap Band Implanted:Cristobal Bonilla Jr., MD (Quantity not on file) Insurance EMPLOYEE Care Teams Pick Up Man Relationship Specialty Start Date End Date Jamilah Severino PA PCP - General Physician Purchasing Manager 11/24/15
--- OUTSIDE RECORDS SUMMARY | 2024-02-09 21:45 | XMS_ITS | Encounter Summary ---
Author Organization [facility] Address [address] [place] [id number] Care Team Providers Care Card Sorter Name Role Phone Jamilah Severino Primary Care Provider [phone] Reason for Visit * Reason Comments Sinus Problem Encounter Details Date Type Department Care Team (Late st Contact Info) Description 12/19/2016 3:00 PM EDT Office Visit [address] [place] [address] Acute recurrent pansinusitis (Primary Dx) Social History Tobacco Use Types Packs/Day Years Used Date Smoking Tobacco: Never Comments No Sex and Gender Information Value Date Recorded Sex Assigned at Not on file Legal Sex Female 11:43 AM EDT Gender Identity Not on file Sexual Orientation Not on file documented as of this encounter Last Filed Vital Signs Vital Sign Reading Time Taken Comments Blood Pressure - - Pulse 86 12/19/2016 3:12 PM EDT Temperature 36 ??C (96.8 ??F) 12/19/2016 3:12 PM EDT Respiratory Rate 15 12/19/2016 3:12 PM EDT Oxygen Saturation 97% 12/19/2016 3:12 PM EDT Inhaled Oxygen Concentration - - Weight 139 kg (307 lb) 12/19/2016 3:12 PM EDT Height 165.1 cm (5' 5 ) 12/19/2016 3:12 PM EDT Body Mass Index 51.09 12/19/2016 3:12 PM EDT documented in this encounter Patient Instructions * Patient Instructions* Polo Spence APRN - 12/19/2016 3:18 PM EDT Images from the original note were not included. Sinusitis, Adult Sinusitis is soreness and inflammation of your sinuses. Sinuses are hollow spaces in the bones around your face. Your sinuses are located: ?? Around your eyes. ?? In the middle of your forehead. ?? Behind your nose. ?? In your cheekbones. Your sinuses and nasal passages are lined with a stringy fluid (mucus). Mucus normally drains out of your sinuses. When your nasal tissues become inflamed or swollen, the mucus can become trapped or blocked so air cannot flow through your sinuses. This allows bacteria, viruses, and funguses to grow, which leads to infection. Sinusitis can develop quickly and last for 7-10 days (acute) or for more than 12 weeks (chronic). Sinusitis often develops after a cold. CAUSES This condition is caused by anything that creates swelling in the sinuses or stops mucus from draining, including: ?? Allergies. ?? Asthma. ?? Bacterial or viral infection. ?? Abnormally shaped bones between the nasal passages. ?? Nasal growths that contain mucus (nasal polyps). ?? Narrow sinus openings. ?? Pollutants, such as chemicals or irritants in the air. ?? A foreign object stuck in the nose. ?? A fungal infection. This is rare. RISK FACTORS The following factors may make you more likely to develop this condition: ?? Having allergies or asthma. ?? Having had a recent cold or respiratory tract infection. ?? Having structural deformities or blockages in your nose or sinuses. ?? Having a weak immune system. ?? Doing a lot of swimming or diving. ?? Overusing nasal sprays. ?? Smoking. SYMPTOMS The main symptoms of this condition are pain and a feeling of pressure around the affected sinuses.Other symptoms include: ?? Upper toothache. ?? Earache. ?? Headache. ?? Bad breath. ?? Decreased sense of smell and taste. ?? A cough that may get worse at night. ?? Fatigue. ?? Fever. ?? Thick drainage from your nose. The drainage is often green and it may contain pus (purulent). ?? Stuffy nose or congestion. ?? Postnasal drip. This is when extra mucus collects in the throat or back of the nose. ?? Swelling and warmth over the affected sinuses. ?? Sore throat. ?? Sensitivity to light. DIAGNOSIS This condition is diagnosed based on symptoms, a medical history, and a physical exam. To find out if your condition is acute or chronic, your health care provider may: ?? Look in your nose for signs of nasal polyps. ?? Tap over the affected sinus to check for signs of infection. ?? View the inside of your sinuses using an imaging device that has a light attached (endoscope). If your health care provider suspects that you have chronic sinusitis, you may also: ?? Be tested for allergies. ?? Have a sample of mucus taken from your nose (nasal culture) and checked for bacteria. ?? Have a mucus sample examined to see if your sinusitis is related to an allergy. If your sinusitis does not respond to treatment and it lasts longer than 8 weeks, you may have an MRI or CT scan to check your sinuses. These scans also help to determine how severe your infection is. In rare cases, a bone biopsy may be done to rule out more serious types of fungal sinus disease. TREATMENT Treatment for sinusitis depends on the cause and whether your condition is chronic or acute. If a virus is causing your sinusitis, your symptoms will go away on their own within 10 days. You may be given medicines to relieve your symptoms, including: ?? Topical nasal decongestants. They shrink swollen nasal passages and let mucus drain from your sinuses. ?? Antihistamines. These drugs block inflammation that is triggered by allergies. This can help to ease swelling in your nose and sinuses. ?? Topical nasal corticosteroids. These are nasal sprays that ease inflammation and swelling in your nose and sinuses. ?? Nasal saline washes. These rinses can help to get rid of thick mucus in your nose. If your condition is caused by bacteria, you will be given an antibiotic medicine. If your condition is caused by a fungus, you will be given an antifungal medicine. Surgery may be needed to correct underlying conditions, such as narrow nasal passages. Surgery may also be needed to remove polyps. HOME CARE INSTRUCTIONS Medicines ?? Take, use, or apply [id number] and prescription medicines only as told by your health careprovider. These may include nasal sprays. ?? If you were prescribed an antibiotic medicine, take it as told by your health care provider. Do not stop taking the antibiotic even if you start to feel better. Hydrate and Humidify ?? Drink enough water to keep your urine clear or pale yellow. Staying hydrated will help to thin your mucus. ?? Use a cool mist humidifier to keep the humidity level in your home above 50%. ?? Inhale steam for 10-15 minutes, 3-4 times a day or as told by your health care provider. You jairo this in the bathroom while a hot shower is running. ?? Limit your exposure to cool or dry air. Rest ?? Rest as much as possible. ?? Sleep with your head raised (elevated). ?? Make sure to get enough sleep each night. General Instructions ?? Apply a warm, moist washcloth to your face 3-4 times a day or as told by your health care provider. This will help with discomfort. ?? Wash your hands often with soap and water to reduce your exposure to viruses and other germs. Ifsoap and water are not available, use hand decision science analyst. ?? Do not smoke. Avoid being around people who are smoking (secondhand smoke). ?? Keep all follow-up visits as told by your health care provider. This is important. SEEK MEDICAL CARE IF: ?? You have a fever. ?? Your symptoms get worse. ?? Your symptoms do not improve within 10 days. SEEK IMMEDIATE MEDICAL CARE IF: ?? You have a severe headache. ?? You have persistent vomiting. ?? You have pain or swelling around your face or eyes. ?? You have vision problems. ?? You develop confusion. ?? Your neck is stiff. ?? You have trouble breathing. This information is not intended to replace advice given to you by your health care provider. Make sure you discuss any questions you have with your health care provider. Document Released: 03/10/2006 Document Revised: 07/01/2016 Document Reviewed: 01/03/2016 [employer] Interactive Patient Education ??2017 [employer] documented in this encounter Progress Notes * Polo Spence APRN - 12/19/2016 3:00 PM EDT Subjective Roseanne Maharaj is a 56 y.o. female. Sinus Problem This is a new problem. The current episode started in the past 7 days. The problem has been gradually worsening since onset. The maximum temperature recorded prior to her arrival was 100.4 - 100.9 F.The fever has been present for less than 1 day. The pain is severe. Associated symptoms include congestion, headaches, sinus pressure (severe), a sore throat and swollen glands. Pertinent negatives include no chills, coughing, ear pain, hoarse voice, neck pain, shortness of breath or sneezing. Pasttreatments include acetaminophen. The treatment provided no relief. The following portions of the patient's history were reviewed and updated as appropriate: allergies, current medications, past medical history, past social history, past surgical history and problem list. Review of Systems Constitutional: Positive for fever (low grade). Negative for appetite change and chills. HENT: Positive for congestion, postnasal drip, rhinorrhea, sinus pressure (severe) and sore throat.Negative for ear pain, hoarse voice, sneezing and trouble swallowing. Eyes: Negative. Respiratory: Negative for cough, shortness of breath and wheezing. Cardiovascular: Negative. Gastrointestinal: Negative for abdominal pain, diarrhea, nausea and vomiting. Musculoskeletal: Negative. Negative for neck pain. Skin: Negative. Neurological: Positive for headaches. Negative for dizziness. Hematological: Positive for adenopathy. Pulse 86 Temp 96.8 ??F (36 ??C) (Temporal Artery ) Resp 15 Ht 65 (165.1 cm) Wt (!) 307 lb (139 kg) LMP (LMP Unknown) SpO2 97% BMI 51.09 kg/m2 Objective Physical Exam Constitutional: She is oriented to person, place, and time. Vital signs are normal. She appears well-developed and well-nourished. HENT: Head: Normocephalic. Right Ear: External ear and ear canal normal. No drainage, swelling or tenderness. Tympanic membrane is bulging. Tympanic membrane is not erythematous. Left Ear: External ear and ear canal normal. No drainage, swelling or tenderness. Tympanic membraneis bulging. Tympanic membrane is not erythematous. Nose: Mucosal edema and rhinorrhea present. Right sinus exhibits maxillary sinus tenderness (severe) and frontal sinus tenderness. Left sinus exhibits maxillary sinus tenderness (severe) and frontal sinus tenderness. Mouth/Throat: Uvula is midline, oropharynx is clear and moist and mucous membranes are normal. Tonsils are 0 on the right. Tonsils are 0 on the left. No tonsillar exudate. Eyes: Conjunctivae are normal. Pupils are equal, round, and reactive to light. Cardiovascular: Normal rate, regular rhythm, S1 normal, S2 normal and normal heart sounds. Pulmonary/Chest: Effort normal and breath sounds normal. No respiratory distress. She has no wheezes. Lymphadenopathy: Head (right side): Tonsillar adenopathy present. Head (left side): Tonsillar adenopathy present. She has no cervical adenopathy. Neurological: She is alert and oriented to person, place, and time. Skin: Skin is warm, dry and intact. No rash noted. Psychiatric: She has a normal mood and affect. Her speech is normal and behavior is normal. Thoughtcontent normal. Vitals reviewed. Assessment/Plan Roseanne was seen today for sinus problem. Diagnoses and all orders for this visit: Acute recurrent pansinusitis - PredniSONE (DELTASONE) 10 MG (21) tablet pack; Take by mouth Daily for 6 days. Use as directed onpackage - amoxicillin-clavulanate (AUGMENTIN) 875-125 MG per tablet; Take 1 tablet by mouth 2 (Two) Times aDay for 10 days. documented in this encounter Plan of Treatment Not on file documented as of this encounter Visit Diagnoses Diagnosis Acute recurrent pansinusitis- Primary documented in this encounter Care Teams Card Sorter Relationship Specialty Start Date End Date Jamilah Severino PA PCP - General Physician X Ray Technologist 11/24/15 documented as of this encounter
--- OUTSIDE RECORDS SUMMARY | 2024-02-09 21:45 | XMS_ITS | Encounter Summary ---
Author Organization [facility] Address [address] [place] [id number] Care Team Providers Care Shipping Checker Name Role Phone Jamilah Severino Primary Care Provider [phone] Reason for Visit * Reason Comments Sore Throat Cough Earache Encounter Details Date Type Department Care Team (Late st Contact Info) Description 02/14/2016 5:15 PM EST Office Visit [address] [place] [address] Acute maxillary sinusitis, recurrence not specified (Primary Dx); Bronchitis Social History Tobacco Use Types Packs/Day Years [...] Comments Blood Pressure - - Pulse 86 02/14/2016 5:06 PM EST Temperature 36.3 ??C (97.4 ??F) 02/14/2016 5:06 PM ES T Respiratory Rate 18 02/14/2016 5:06 PM EST Oxygen Saturation 98% 02/14/2016 5:06 PM EST Inhaled Oxygen Concentration - - Weight 135 kg (296 lb 9.6 oz) 02/14/2016 5:06 PM EST Height 165.1 cm (5' 5 ) 02/14/2016 5:06 PM EST Body Mass Index 49.36 02/14/2016 5:06 PM EST documented in this encounter Progress Notes * Celia Gasca APRN - 02/14/2016 5:15 PM EST Subjective Roseanne Maharaj is a 55 y.o. female. Cough This is a new problem. The current episode started in the past 7 days. The problem has been gradually worsening. The cough is productive of sputum. Associated symptoms include ear congestion, a fever(100), nasal congestion, postnasal drip, rhinorrhea, a sore throat and shortness of breath. Pertinent negatives include no headaches, myalgias or wheezing. Treatments tried: tylenol & nyquil. Thetreatment provided no relief. There is no history of asthma or COPD. Earache Associated symptoms include coughing, rhinorrhea and a sore throat. Pertinent negatives include no headaches. The following portions of the patient's history were reviewed and updated as appropriate: allergies, current medications, past family history, past medical history, past social history, past surgicalhistory and problem list. Review of Systems Constitutional: Positive for fever (100). HENT: Positive for postnasal drip, rhinorrhea and sore throat. Respiratory: Positive for cough and shortness of breath. Negative for wheezing. Musculoskeletal: Negative for myalgias. Neurological: Negative for headaches. Objective Physical Exam Constitutional: She appears well-developed and well-nourished. HENT: Head: Normocephalic and atraumatic. Right Ear: Tympanic membrane and ear canal normal. Left Ear: Tympanic membrane and ear canal normal. Nose: Right sinus exhibits maxillary sinus tenderness. Left sinus exhibits maxillary sinus tenderness. Mouth/Throat: Oropharynx is clear and moist. Cardiovascular: Regular rhythm and normal heart sounds. Pulmonary/Chest: Effort normal. She has wheezes. She has rhonchi. She has no rales. Lymphadenopathy: She has no cervical adenopathy. Skin: Skin is warm and dry. Assessment/Plan Roseanne was seen today for sore throat, cough and earache. Diagnoses and all orders for this visit: Acute maxillary sinusitis, recurrence not specified Bronchitis Other orders - amoxicillin-clavulanate (AUGMENTIN) 875-125 MG per tablet; Take 1 tablet by mouth 2 (Two) Times aDay for 7 days. - predniSONE (DELTASONE) 10 MG tablet; 6/5/4/3/2/1 As directed PO documented in this encounter Plan of Treatment Not on file documented as of this encounter Visit Diagnoses Diagnosis Acute maxillary sinusitis, recurrence not specified- Primary Bronchitis Bronchitis, not specified as acute or chronic documented in this encounter Care Teams Shipping Checker Relationship Specialty Start Date End Date Jamilah Severino PA PCP - General Physician Patient Information Coordinator 11/24/15 documented as of this encounter
--- OUTSIDE RECORDS SUMMARY | 2024-02-09 21:45 | XMS_ITS | Encounter Summary ---
Author Organization [facility] Address [address] [place] [address] Care Team Providers Care Employment Security Officer Name Role Phone Jamilah Severino Primary Care Provider [phone] Encounter Details Date Type Department Care Team (Late st Contact Info) Description 09/15/2017 7:30 AM EDT Outside Facility Service [facility] BARIATRIC SURGERY [address] [place] [address] Ricki Spence MD [address] [place] [address] Social History Tobacco Use Types Packs/Day Years [...] on file documented as of this encounter Plan of Treatment Not on file documented as of this encounter Visit Diagnoses Not on filedocumented in this encounter Care Teams Employment Security Officer Relationship Specialty Start Date End Date Jamilah Severino PA PCP - General Physician Unishear Operator 11/24/15 documented as of this encounter
--- OUTSIDE RECORDS SUMMARY | 2024-02-09 21:45 | XMS_ITS | Encounter Summary ---
Author Organization [facility] Address [address] [place] [address] Care Team Providers Care Sound Technician Supervisor Name Role Phone Jamilah Severino Primary Care Provider [phone] Encounter Details Date Type Department Care Team (Late st Contact Info) Description 09/04/2017 4:00 PM EDT Office Visit [facility] BARIATRIC SURGERY [address] [place] [address] Lexi De Los Santos PA-C Status post bariatric surgery (Primary Dx); Dysphagia, unspecified type; Gastroesophageal reflux disease, esophagitis presence not specified Social History Tobacco Use Types Packs/Day Years [...] Sign Reading Time Taken Comments Blood Pressure 140/98 09/04/2017 3:54 PM EDT Pulse 71 09/04/2017 3:54 PM EDT Temperature 36.2 ??C (97.1 ??F) 09/04/2017 3:54 PM ED T Respiratory Rate 18 09/04/2017 3:54 PM EDT Oxygen Saturation 99% 09/04/2017 3:54 PM EDT Inhaled Oxygen Concentration - - Weight 138 kg (304 lb 0.2 oz) 09/04/2017 3:54 PM EDT Height 166.4 cm (5' 5.5 ) 09/04/2017 3:54 PM EDT Body Mass Index 49.82 09/04/2017 3:54 PM EDT documented in this encounter Progress Notes * Lexi De Los Santos PA-C - 09/04/2017 4:00 PM EDT [facility] Bariatric Surgery [address] [facility] [address] Patient Name: Roseanne Maharaj. Date of : 1960 Date of Visit: 09/04/2017 CC: dysphagia, GERD, abdominal pain HPI: Roseanne Maharaj is a 57 y.o. 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 Bonilla presents for discussion of gastric band removal due to band intolerance with dysphagia/ GERD/ abdominal pain. Ultimately, is looking towards revision option to LSG. SONYA: UGI was reviewed, showed esophageal dilatation w/ slight unilateral pouch enlargement. Band was untilled completely. ?? Today, patient states she is doing well. Since SONYA with band unfill, dysphagia and reflux have improved. She has noticed some abdominal soreness around port site with palpation, bending or moving. Denies pain at other times. Denies redness, fevers, warmth around site. Denies nausea/ vomiting. On NSAIDS daily. She is looking forward to band removal. She is tolerating her diet better since band unfill. UGI 07/09/17 IMPRESSION: 1. Status post gastric lap band x9 years. The LAP-BAND appears to be in the appropriate position and orientation. The LAP-BAND channel is narrow, and patent. 2. Mild esophageal dysmotility EGD 08/06/[address] Spence: Tight outlet, chronic partial slip, zline 38cm, NSAID arthritis. Past Medical History: Diagnosis Date ??? Arthritis ??? Dyspepsia ??? Fatigue ??? GERD (gastroesophageal reflux disease) ??? Hypertension uncontrolled ??? Joint pain ??? Morbid obesity ??? MRSA infection 2008 groin incision, treated with iv abx, hospitalized, wound vac and surgery ??? UTI (urinary tract infection) finished abx on 08-02-17, rare occurence ??? Vitamin D deficiency ??? Wears glasses ??? Wears partial dentures Past Surgical History: Procedure Laterality Date ??? SECTION 1977, 1978, 1984 ??? CHOLECYSTECTOMY 1991 ??? ENDOSCOPY 08/06/2017 Procedure: ESOPHAGOGASTRODUODENOSCOPY WITH BIOPSY; Surgeon: Ricki Spence MD; Location: [facility] END[facility]; Service: Gastroenterology ??? INCISIONAL HERNIA REPAIR 1993 x2 ??? LAPAROSCOPIC GASTRIC BANDING 04/14/2008 [facility] ??? OOPHORECTOMY 1995 ??? TONSILLECTOMY 1965 ??? TUBAL ABDOMINAL LIGATION 1984 Current Outpatient Prescriptions: ??? famotidine (PEPCID) 20 MG tablet, Take 20 mg by mouth Every Night., Disp: , Rfl: ??? lisinopril-hydrochlorothiazide (PRINZIDE,ZESTORETIC) 20-25 MG per tablet, Take 1 tablet by mouth Daily., Disp: , Rfl: ??? METOPROLOL SUCCINATE ER PO, Take 25 mg by mouth Every Morning., Disp: , Rfl: ??? naproxen (NAPROSYN) 500 MG tablet, Take 500 mg by mouth 2 (Two) Times a Day With Meals., Disp: , Rfl: ??? traZODone (DESYREL) 50 MG tablet, Take 50 mg by mouth Every Night., Disp: , Rfl: ??? vitamin D (ERGOCALCIFEROL) 52851 units capsule capsule, TAKE 1 CAPSULE TWICE WEEKLY, Disp: , Rfl: 2 Allergies Allergen Reactions ??? Celebrex [Celecoxib] Shortness Of Breath ??? Lomotil [Diphenoxylate] Other (See Comments) Chest pain ??? Adhesive Tape Rash ??? Codeine Palpitations ??? Morphine And Related Palpitations Tightness in chest Family History Problem Relation Age of Onset ??? Cancer Mother ??? Hypertension Father ??? Heart disease Father ??? Cancer Sister Social History Social History ??? Marital status: [...] History Narrative ??? No narrative on file Review of Systems BP 140/98 (BP Location: Left arm, Patient Position: Sitting, Cuff Size: Large Adult) Pulse 71 Temp 97.1 ??F (36.2 ??C) (Temporal Artery ) Resp 18 Ht 166.4 cm (65.5 ) Wt (!) 138 kg (304 lb 0.2 oz) LMP (LMP Unknown) SpO2 99% BMI 49.82 kg/m?? Physical Exam Constitutional: She is oriented to person, place, and time. She appears well- developed and well-nourished. HENT: Head: Normocephalic and atraumatic. Mouth/Throat: Oropharynx is clear and moist. Eyes: EOM are normal. Neck: Normal range of motion. Neck supple. No thyromegaly present. Cardiovascular: Normal rate, regular rhythm and normal heart sounds. Pulmonary/Chest: Effort normal and breath sounds normal. No respiratory distress. She has no wheezes. Abdominal: Soft. Bowel sounds are normal. She exhibits no distension. There is no tenderness. Thereis no guarding. Port site LLQ with minimal TTP, without induration/ fluctuance/ erythema of site. Lower midline abdominal scar. RUQ scar. Lap scars. Musculoskeletal: Normal range of motion. She exhibits edema. Neurological: She is alert and oriented to person, place, and time. Skin: Skin is warm and dry. Psychiatric: She has a normal mood and affect. Her behavior is normal. Judgment and thought contentnormal. Vitals reviewed. Assessment: s/p KURT Davis C 03/2008 w/ Dr. Bonilla presents for discussion of gastric band removaldue to band intolerance with dysphagia/ GERD/ abdominal pain. ICD-10-CM ICD-9-CM 1. Status post bariatric surgery Z98.84 V45.86 2. Dysphagia, unspecified type R13.10 787.20 3. Gastroesophageal reflux disease, esophagitis presence not specified K21.9 530.81 Plan: Proceed with gastric band removal. Advised holding NSAIDS 1 week prior to surgery. If port site becomes red, fevers, etc, prior to surgery, please let us know. Will consider LSG 3 months post gastric band removal. Lexi De Los Santos PA-C documented in this encounter Plan of Treatment Not on file documented as of this encounter Visit Diagnoses Diagnosis Status post bariatric surgery- Primary Bariatric surgery status Dysphagia, unspecified type Gastroesophageal reflux disease, esophagitis presence not specified documented in this encounter Care Teams Sound Technician Supervisor Relationship Specialty Start Date End Date Jamilah Severino PA PCP - General Physician Admissions Nurse 11/24/15 documented as of this encounter
--- OUTSIDE RECORDS SUMMARY | 2024-02-09 21:45 | XMS_ITS | Encounter Summary ---
[facility] Organization [facility] Address [address] [place] [id number] Care Team Providers Care Credit Risk Officer Name Role Phone Jamilah Severino Primary Care Provider [phone] Encounter Details Date Type Department Care Team (Late st Contact Info) Description 09/19/2017 3:45 PM EDT Office Visit [facility] [address] [place] [address] Lexi De Los Santos PA-C Status post bariatric surgery (Primary Dx); History of removal of laparoscopic gastric banding device Social History Tobacco Use Types Packs/Day Years [...] Sign Reading Time Taken Comments Blood Pressure 133/88 09/19/2017 3:06 PM EDT Pulse 86 09/19/2017 3:06 PM EDT Temperature 36.6 ??C (97.8 ??F) 09/19/2017 3:06 PM ED T Respiratory Rate 18 09/19/2017 3:06 PM EDT Oxygen Saturation 99% 09/19/2017 3:06 PM EDT Inhaled Oxygen Concentration - - Weight 141 kg (311 lb) 09/19/2017 3:06 PM EDT Height 166.4 cm (5' 5.5 ) 09/19/2017 3:06 PM EDT Body Mass Index 50.97 09/19/2017 3:06 PM EDT documented in this encounter Progress Notes * Lexi De Los Santos PA-C - 09/19/2017 3:45 PM EDT [facility] [address] [facility] [address] Roseanne Maharaj. 1960 Day Of Visit: 09/19/2017 Reason for Visit: POD#4 Band removal Follow Up HPI: 57 y.o. year old female s/p LAGB Realize C by Dr. Bonilla 03/2008 followed by AGBR removal by Dr. Spence 09/15/17 fordysphagia, reflux, abdominal pain. Findings: chronic partial slip. Procedure was outpatient. Patient presents today earlier than scheduled followup with concerns re: larges incision site. Feeling pretty bad. Tiny spots of blood on shirt day 1, no other drainage. Hasn't noticed any redness due to bruising. Pain is constant, worse with standing/ bending. Pain 7/10. Is taking percoset 7.5 q4 hours. A little nausea, is taking phenergan before taking percoset to combat nausea. Tolerating PO w/out issue. Eating soup, hasn't been hungry. Drinking 32oz daily water. Denies fever, vomiting and. Bowels are moving. Voiding well. No other issues/concerns. Past Medical History: Diagnosis Date ??? Arthritis [...] Procedure Laterality Date ??? SECTION 1977, 1978, 1985 ??? CHOLECYSTECTOMY 1991 ??? ENDOSCOPY 08/06/2017 Procedure: ESOPHAGOGASTRODUODENOSCOPY WITH BIOPSY; Surgeon: Ricki Spence MD; Location: [facility] END[facility]COPY; Service: Gastroenterology ??? INCISIONAL HERNIA REPAIR [...] Day With Meals., Disp: , Rfl: ??? oxyCODONE-acetaminophen (PERCOCET) 7.5-325 MG per tablet, Take 1 tablet by mouth Every 6 (Six) Hours As Needed., Disp: , Rfl: ??? promethazine (PHENERGAN) 12.5 MG tablet, Take 12.5 mg by mouth Every 6 (Six) Hours As Needed for Nausea or Vomiting., Disp: , Rfl: ??? vitamin D (ERGOCALCIFEROL) 32318 units capsule capsule, TAKE 1 CAPSULE TWICE WEEKLY, Disp: , Rfl: 2 ??? traZODone (DESYREL) 50 MG tablet, Take 50 mg by mouth Every Night., Disp: , Rfl: Allergies Allergen Reactions ??? Celebrex [Celecoxib] Shortness Of Breath ??? Lomotil [Diphenoxylate] Other (See Comments) Chest pain ??? Adhesive Tape Rash ??? Codeine Palpitations ??? Morphine And Related Palpitations Tightness in chest Social History Social History ??? Marital status: [...] Narrative ??? No narrative on file BP 133/88 (BP Location: Left arm, Patient Position: Sitting, Cuff Size: Large Adult) Pulse 86 Temp 97.8 ??F (36.6 ??C) (Temporal Artery ) Resp 18 Ht 166.4 cm (65.5 ) Wt (!) 141 kg (311 lb) LMP (LMP Unknown) SpO2 99% BMI 50.97 kg/m?? The following portions of the patient's history were reviewed and updated as appropriate: allergies, current medications, past family history, past medical history, past social history, past surgicalhistory and problem list. Physical Exam Constitutional: She appears well-developed and well-nourished. HENT: Head: Normocephalic and atraumatic. Cardiovascular: Normal rate and regular rhythm. Pulmonary/Chest: Effort normal and breath sounds normal. Abdominal: Soft. Bowel sounds are normal. Incisions healing well, bruising surrounding. TTP of part site, Without erythema or drainage. Soft. Neurological: She is alert. Skin: Skin is warm and dry. Psychiatric: She has a normal mood and affect. Her behavior is normal. POD#4 Band removal Follow Up Plan: Reassured patient incisions healing well. Percoset PRN, wean to tylenol. Stool softeners if needed.RTC as scheduled for follow up, sooner if needed. documented in this encounter Plan of Treatment Not on file documented as of this encounter Visit Diagnoses Diagnosis Status post bariatric surgery- Primary Bariatric surgery status History of removal of laparoscopic gastric banding device documented in this encounter Care Teams Credit Risk Officer Relationship Specialty Start Date End Date Jamilah Severino PA PCP - General Physician Pin Chaser 11/24/15 documented as of this encounter
--- OUTSIDE RECORDS SUMMARY | 2024-02-09 21:45 | XMS_ITS | Encounter Summary ---
[facility] Organization [facility] Address [address] [place] [address] Care Team Providers Care Sales Support Associate Name Role Phone Jamilah Severino Primary Care Provider [phone] Reason for Referral * Diagnostic Imaging (Routine) - Closed Specialty Diagnoses / Procedures Referred By Contac t Referred To Contact Radiology Diagnoses Dyspepsia Procedures FL Upper GI Single Contrast With KUB Albertina Dick PA [address] [place] [address] Phone: tel: fax: [address] [address] Phone: tel: Referral ID Status Reason Start Date Expiration Date Visits Re quested Visits Authorized [id number] Closed 07/08/2017 07/08/2018 1 1 Encounter Details Date Type Department Care Team (Late st Contact Info) Description 07/08/2017 2:30 PM EDT Office Visit [facility] BARI[facility]IC SURGERY [address] [place] [address] Albertina Dick PA [address] [place] [address] Dyspepsia (Primary Dx); Morbid obesity; S/P bariatric surgery [...] Sign Reading Time Taken Comments Blood Pressure 208/120 07/08/2017 2:35 PM EDT Pulse 96 07/08/2017 2:35 PM EDT Temperature 36.7 ??C (98 ??F) 07/08/2017 2:35 PM EDT Respiratory Rate 18 07/08/2017 2:35 PM EDT Oxygen Saturation 99% 07/08/2017 2:35 PM EDT Inhaled Oxygen Concentration - - Weight 138 kg (303 lb 8.2 oz) 07/08/2017 2:35 PM EDT Height 166.4 cm (5' 5.5 ) 07/08/2017 2:35 PM EDT Body Mass Index 49.74 07/08/2017 2:35 PM EDT documented in this encounter Progress Notes * Albertina Dick PA - 07/08/2017 2:30 PM EDT [facility] Bariatric Surgery [address] [address] Patient Name: Roseanne Maharaj. : 1960 Date of Visit: 07/08/2017 Reason for Visit: AGB followup HPI: Roseanne Maharaj is a 57 y.o. 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 Bonilla. She is aware that Dr. Bonilla is now in [place]. Prefers to stay w/ [facility] in [place]. She lives in [place]. SONYA 2010. Expected band vol 7.7cc. Returns today wanting a fill. Says it has gotten out of hand. Able to consume large portions and has steadily been gaining weight. Says lowest achieved weight w/ lapband was 218 lbs, but now weighing 303 lbs. Says also needing to lose weight in order to have a knee replacement. Denies dysphagia, reflux, nausea, vomiting, or??abdominal pain. No port pain/irritation. Past Medical History: Diagnosis Date ??? Arthritis ??? Hypertension Past Surgical History: Procedure Laterality Date ??? SECTION 1977, 1979, 1985 ??? CHOLECYSTECTOMY 1992 ??? HERNIA REPAIR 1994 x2 ??? LAPAROSCOPIC GASTRIC BANDING 04/14/2008 [facility] ??? OOPHORECTOMY 1995 ??? TONSILLECTOMY 1965 ??? TUBAL ABDOMINAL LIGATION 1984 Allergies Allergen Reactions ??? Celebrex [Celecoxib] Shortness Of Breath ??? Lomotil [Diphenoxylate] Swelling ??? Adhesive Tape Rash ??? Codeine Palpitations ??? Morphine And Related Palpitations Tightness in chest Outpatient Prescriptions Marked as Taking for the 07/08/17 encounter (Office Visit) with HEBER Driscoll Medication Sig Dispense Refill ??? diclofenac (VOLTAREN) 75 MG EC tablet TAKE 1 TABLET BY MOUTH TWICE A DAY WITH FOOD OR MILK 2 ??? vitamin D (ERGOCALCIFEROL) 22850 units capsule capsule TAKE 1 CAPSULE TWICE [...] ??? No narrative on file BP (!) 208/120 (BP Location: Left arm, Patient Position: Sitting, Cuff Size: Large Adult) Pulse 96 Temp 98 ??F (36.7 ??C) (Temporal Artery ) Resp 18 Ht 166.4 cm (65.5 ) Wt (!) 138 kg (303 lb 8.2 oz) LMP (LMP Unknown) SpO2 99% BMI 49.74 kg/m?? Physical Exam Constitutional: She appears well-developed [...] 7.7 Amount Added (cc): Amount Removed (cc): Total Amount (cc): Able to melinda water after ADJ? Other Notes: Assessment: s/p LAGB Realize C 03/2008 w/ Dr. Bonilla ICD-10-CM ICD-9-CM 1. Dyspepsia R10.13 536.8 2. Morbid obesity E66.01 278.01 3. S/P bariatric surgery Z98.84 V45.86 Plan: No ADJ today - needs UGI first. Follow up pending UGI results. HEBER Driscoll documented in this encounter Plan of Treatment Not on file documented as of this encounter Results * FL Upper GI Single Contrast With KUB (07/09/2017 9:28 AM EDT) Anatomical Region Laterality Modality Body N/A Radio Fluoroscop y 07/09/2017 1:19 PM EDT Impressions 07/09/2017 2:23 PM EDT 1. Status post gastric lap band x9 years. The LAP-BAND appears to be in the appropriate position and orientation. The LAP-BAND channel is narrow, and patent. 2. Mild esophageal dysmotility ?? This report was finalized on 07/09/2017 2:[address] Manuel Grimaldo MD. Narrative 07/09/2017 2:23 PM EDT EXAMINATION: FL UPPER GI SINGLE CONTRAST W KUB- INDICATION: dyspepsia; R10.13-Epigastric pain TECHNIQUE: 1 minute and 30 seconds of fluoroscopic time was used for this exam. 10 associated images were saved. Drug And Alcohol Counsellor imaging reveals a nonobstructive bowel gas pattern. There is a gastric lap and present, and it appears to be in the appropriate position and orientation. This position appears to be relatively unchanged from previous study performed on 08/13/2010. COMPARISON: NONE FINDINGS: Under fluoroscopic observation, the patient ingested thin barium. The oral phase of deglutition appeared normal. The esophageal mucosa appeared grossly normal. There was mild esophageal dysmotility. There was no evidence of a focal esophageal stricture. Examination of the stomach demonstrated a gastric lap and in the appropriate position and orientation. The LAP-BAND channel is narrow, and patent. The gastric folds and gastric mucosa appeared grossly normal. There was no evidence of a gastric or duodenal ulcer. There was no delay in gastric empty. The duodenal bulb and duodenal C-loop appeared grossly normal. Procedure Note Mirtha Irving PA - 07/09/2017 EXAMINATION: FL UPPER GI SINGLE CONTRAST W KUB- INDICATION: dyspepsia; R10.13-Epigastric pain TECHNIQUE: 1 minute and 30 seconds of fluoroscopic time was used for this exam. 10 associated images were saved. Drug And Alcohol Counsellor imaging reveals a nonobstructive bowel gas pattern. There is a gastric lap and present, and it appears to be in the appropriate position and orientation. This position appears to be relatively unchanged from previous study performed on 08/13/2010. COMPARISON: NONE FINDINGS: Under fluoroscopic observation, the patient ingested thin barium. The oral phase of deglutition appeared normal. The esophageal mucosa appeared grossly normal. There was mild esophageal dysmotility. There was no evidence of a focal esophageal stricture. Examination of the stomach demonstrated a gastric lap and in the appropriate position and orientation. The LAP-BAND channel is narrow, and patent. The gastric folds and gastric mucosa appeared grossly normal. There was no evidence of a gastric or duodenal ulcer. There was no delay in gastric empty. The duodenal bulb and duodenal C-loop appeared grossly normal. IMPRESSION: 1. Status post gastric lap band x9 years. The LAP-BAND appears to be in the appropriate position and orientation. The LAP-BAND channel is narrow, and patent. 2. Mild esophageal dysmotility This report was finalized on 07/09/2017 2:[address] Manuel Grimaldo MD. Albertina BUCK IMG FLUOROSCOPY ORDERABLES Final Result documented in this encounter Visit Diagnoses Diagnosis Dyspepsia- Primary Dyspepsia and other specified disorders of function of stomach Morbid obesity S/P bariatric surgery Dyspepsia Dyspepsia and other specified disorders of function of stomach documented in this encounter Care Teams Sales Support Associate Relationship Specialty Start Date End Date Jamilah Severino PA PCP - General Physician Photo Mask Inspector 11/24/15 documented as of this encounter
--- OUTSIDE RECORDS SUMMARY | 2024-02-09 21:45 | XMS_ITS | Encounter Summary ---
[facility] Address [address] [place] [address] Care Team Providers Care Biomedical Manager Name Role Phone Jamilah Severino Primary Care Provider [phone] Reason for Visit * Auth/Cert Specialty Diagnoses / Procedures Referred By Conthilary t Referred To Contact Diagnoses Dysphagia, unspecified type Dysphagia, unspecified type [R13.10] Procedures ESOPHAGOGASTRODUODENOSCOPY Referral ID Status Reason Start Date Expiration Date Visits Re quested Visits Authorized [id number] 1 1 Encounter Details Date Type Department Care Team (Latest Contact Info) Description 08/06/2017 8:48 AM EDT - 08/06/2017 9:48 AM EDT Surgery [facility] [address] [place] [address] Ricki Spenec MD [address] [facility] [address] [place] [address] ESOPHAGOGASTRODUODENOSCOPY WITH BIOPSY Social History Tobacco Use Types Packs/Day Years [...] Sign Reading Time Taken Comments Blood Pressure 189/93 08/06/2017 8:46 AM EDT Pulse 76 08/06/2017 8:46 AM EDT Temperature 36.1 ??C (97 ??F) 08/06/2017 8:46 AM EDT Respiratory Rate 18 08/06/2017 8:46 AM EDT Oxygen Saturation 97% 08/06/2017 8:46 AM EDT Inhaled Oxygen Concentration - - Weight - - Height - - Body Mass Index - - documented in this encounter Discharge Instructions * Attachments The following attachments cannot be sent through Care Everywhere. * GENERAL ANESTHESIA ADULT CARE AFTER (BELARUSIAN) * ESOPHAGOGASTRODUODENOSCOPY CARE AFTER (BELARUSIAN) documented in this encounter Medications at Time of Discharge famotidine (PEPCID) 20 MG tablet Take 20 mg by mouth Every Night. lisinopril-hydroc hlorothiazide (PRINZIDE,ZESTORE TIC) 20-25 MG per tablet Take 1 tablet by mouth Daily. METOPROLOL SUCCINATE ER PO Take 25 mg by mouth Every Morning. naproxen (NAPROSYN) 500 MG tablet Take 500 mg by mouth 2 (Two) Times a Day With Meals. traZODone (DESYREL) 50 MG tablet Take 50 mg by mouth Every Night. vitamin D (ERGOCALCIFEROL) 98145 units capsule capsule TAKE 1 CAPSULE TWICE WEEKLY 2 06/11/2017 documented as of this encounter H&P Notes * Ricki Spence MD - 08/06/2017 10:34 AM EDT H&P reviewed. The patient was examined and there are no changes to the H&P. Source Note - Albertina Dick PA - 07/21/2017 3:30 PM EDT [facility] Bariatric Surgery [address] [address] Patient Name: Roseanne Maharaj. : 1960 Date of Visit: 07/21/2017 Reason for Visit: AGB followup HPI: Roseanne Maharaj is a 57 y.o. 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 Bonilla. She is aware that Dr. Bonilla is now in [place]. Prefers to stay w/ [facility] in [place]. She lives in [place]. Presented earlier this month wanting to get [...] OR MILK 2 ??? vitamin D (ERGOCALCIFEROL) 09932 units capsule capsule TAKE 1 CAPSULE TWICE [...] patient. HEBER Driscoll documented in this encounter OR Notes * Op Note - Ricki Spence MD - 08/06/2017 8:48 AM EDT Preoperative Diagnosis: Dysphagia s/p Realize Band placement 04/01 Postoperative Diagnosis: Same Procedure: EGD with biopsy x 2 Surgeon: Jordy Anesth: MAC Specimens: antrum, DE Complics: None Findings: Tight outlet, chronic partial slip, zline 38 cm, NSAID antritis Indications: This is a 57 yo MO WF s/p Lap Realize Band Dr. Bonilla 04/01. Probs w dsyphagia despite no fluid in her band. UGI shows esoph dilatation with unilateral pouch enlargement. She would like the band removed. Please see our office notes. Risks, benefits and alternative therapies were discussed and the patient wishes to proceed with diagnostic possible therapeutic upper endoscopy Operative Technique: The patient was brought to the endoscopy suite and placed supine upon the stretcher bite block was placed the patient was sedated by the anesthesiology staff in the standard flexible endoscope was advanced under direct visualization into the posterior pharynx, vocal cords appeared normal and the esophagus was intubated and the endoscope advanced easily through the esophagus, and into the gastric cavity. The pylorus was readily identified and intubated and the endoscope advanced into the first and second portions of the duodenum. The endoscope was withdrawn to the antrum and a biopsy was obtained. Retroflexed examination was performed visualizing the hiatus, cardia, fundus and body. The endoscope was withdrawn to the Z line and photodocumentation obtained. The endoscope was slowly withdrawn, no new abnormalities noted. Prox esoph - no strictures, retained secretions. Distally some esoph dil. Some esoph spasms noted. Distal esoph - sl irreg zline, cannot r/o small HH or very SS Holt's. No gross esophagitis. Gastric mucosa grossly normal except for areas of punctate, raised erythema w/o ulceration in the antrum.Pylorus not deformed or in spasm. Duodenum unremarkable. Retroflexed exam fair outline of the band,no erosion seen. Several passes through the area of the banding - narrow, but no erosion seen. Someexcessive stomach above the band c/w partial slip. Zline 38 cm, bx above the zline obtained. The patient tolerated the procedure well without complication and was taken to the recovery room instable condition. * Brief Op Note - Ricki Spence MD - 08/06/2017 8:48 AM EDT ESOPHAGOGASTRODUODENOSCOPY WITH BIOPSY Progress Note Roseanne Maharaj 08/06/2017 Pre-op Diagnosis: Dysphagia, unspecified type [R13.10] Post-Op Diagnosis Codes: * Dysphagia, unspecified type [R13.10] * Gastric banding status [Z98.84] Procedure/CPT?? Codes: [place] EGD TRANSORAL BIOPSY SINGLE/MULTIPLE [10799] Procedure(s): ESOPHAGOGASTRODUODENOSCOPY WITH BIOPSY Surgeon(s): Ricki Spence MD Anesthesia: * No anesthesia type entered * Staff: Monitor/Sedation Nurse: Alisia Lyons RN Endo Therapeutic Radiologist: Fela Knox Estimated Blood Loss: none Urine Voided: * No values recorded between 08/06/2017 10:46 AM and 08/06/2017 11:02 AM * Specimens: ID Type Source Tests Collected by Time A : Antrum bxs Tissue Stomach TISSUE PATHOLOGY EXAM Ricki Spence MD 08/06/2017 1056 B : Distal Esophagus bxs Tissue Esophagus, Distal TISSUE PATHOLOGY EXAM Ricki Spence MD 08/06/2017 1100 Drains: Findings: Complications: none Ricki Spence MD Date: 08/06/2017 Time: 11:02 AM documented in this encounter Plan of Treatment Not on file documented as of this encounter Procedures Procedure Name Priority Date/Time Associated Diagnosis Comments TISSUE PATHOLOGY EXAM Routine 08/06/2017 10:56 AM EDT Dysphagia, unspecified type ESOPHAGOGASTRODUODENOSCOPY W ITH BIOPSY 08/06/2017 10:31 AM EDT Dysphagia, unspecified type Gastric banding status documented in this encounter Results * Tissue Pathology Exam (08/06/2017 10:56 AM EDT) Case Report Surgical Pathology Report ? Case: [id number] ? Authorizing Provider: ??Ricki Spence MD ? Collected: ? 08/06/2017 10:56 AM ? Ordering Location: ? [facility] ?? Received: ?08/06/2017 11:16 AM ? ENDO SUITES ? Pathologist: ? Cristobal Schmidt MD ? Specimens: ?? 1) - Gastric, Antrum ? 2) - Esophagus, Distal ? 08/07/2017 5:26 PM EDT [facility] Clinical Information The working history is dysphagia. 08/07/2017 5:26 PM EDT [facility] Final Diagnosis 1. GASTRIC ANTRUM BIOPSY: Reactive gastropathy; negative for H.pylori on routine stain. 2. DISTAL ESOPHAGUS BIOPSY: Changes compatible with reflux. Negative for eosinophilic esophagitis and Holt's metaplasia. Negative for dysplasia and neoplasia. [facility]FJ[facility]b [facility] Description Specimen 1 received in formalin labeled as antrum biopsy is a 0.3 x 0.3 x 0.3 cm braxton soft tissue fragment submitted in toto in cassette one. Specimen 2 received in formalin labeled as distal esophagus biopsy is a 0.3 x 0.3 x 0.3 cm woods/pink soft tissue fragment submitted in toto in cassette two. HBM/dlb 08/07/2017 5:26 PM EDT [facility] Microscopic Description Sections from specimen 1 show gastric pit hyperplasia with pits which are elongated and somewhat tortuous. There is no significant active inflammation or intestinal metaplasia. The underlying lamina propria shows an increase in chronic inflammatory cells without nodular aggregates as well as increase in connective tissue elements including small slips of smooth muscle which extend to the surface epithelium. Searching of the gastric pits shows no organisms morphologically compatible with Helicobacter. Sections from specimen 2 show squamous mucosa with basal layer hyperplasia, papillomatosis, and vascular ectasia. There is no significant eosinophilia (0-1/HPF). There is no evidence of Holt's metaplasia, dysplasia, or neoplasia. 08/07/2017 5:26 PM EDT [facility] Embedded Images 08/07/2017 5:26 PM EDT [facility] Tissue Pyloric antrum structure / Unknown 08/06/2017 10:56 AM EDT 08/06/2017 11:16 AM EDT Tissue specimen (specimen) Structure of lower third of esophagus / Unknown 08/06/2017 11:00 AM EDT 08/06/2017 11:16 AM EDT us Ricki Spence MD PATHOLOGY/CYTOLOGY ORDERAB LES Final Result [facility]
[address] [place] [address], documented in this encounter Visit Diagnoses Diagnosis Dysphagia- Primary Dysphagia, unspecified type Dysphagia, unspecified type Gastric banding status Bariatric surgery status documented in this encounter Admitting Diagnoses Diagnosis Dysphagia documented in this encounter Administered Medications Inactive Administered Medications - up to 3 most recent administrations Medication Order MAR Action Action Date Dose Rate Site ondansetron (ZOFRAN) injection 4 mg 4 mg, Intravenous, Once As Needed, Nausea, Vomiting, Starting on Fri08/06/17 at 1100, For 1 dose, If BOTH ondansetron (ZOFRAN) and promethazine (PHENERGAN) are ordered use ondansetron first and THEN promethazine IF ondansetron is ineffective. Given 08/06/2017 11:13 AM EDT 4 mg sodium chloride 0.9 % infusion 150 mL/hr, Intravenous, Continuous, Starting on Fri08/06/17 at 0900Indications:Dysphagia, unspecified type New Bag 08/06/2017 8:54 AM EDT 150 mL/hr 150 mL/hr documented in this encounter Active and Recently Administered Medications Times are shown in EDT. Continuous Medication Order 08/04/2017 08/05/2017 08/06/2017 sodium chloride 0.9 % infusion 150 mL/hr, Intravenous, Continuous, Starting on Fri08/06/17 at 0900 0854 (New Bag - Prov ider: Juan Luis Thrasher RN) PRN Medication Order 08/04/2017 08/05/2017 08/06/2017 ondansetron (ZOFRAN) injection 4 mg (COMPLETED) 4 mg, Intravenous, Once As Needed, Nausea, Vomiting, Starting on Fri08/06/17 at 1100, For 1 dose, If BOTH ondansetron (ZOFRAN) and promethazine (PHENERGAN) are ordered use ondansetron first and THEN promethazine IF ondansetron is ineffective. 1113 (Given - Provid er: Gail Tavarez RN) documented in this encounter Care Teams Biomedical Manager Relationship Specialty Start Date End Date Jamilah Severino PA PCP - General Physician Clinical Technologist 11/24/15 documented as of this encounter
--- OUTSIDE RECORDS SUMMARY | 2024-02-09 21:45 | XMS_ITS | Encounter Summary ---
[facility] Address [address] [place] [id number] Care Team Providers Care Sleeve Maker Name Role Phone Jamilah Severino Primary Care Provider [phone] Reason for Visit * Reason Comments Med Refill Encounter Details Date Type Department Care Team (Late st Contact Info) Description 03/11/2017 Refill [facility] [address] [place] [address] Celia Gsaca, HEALTH LEAD [address] [facility] [address] [place] [address] Social History Tobacco Use Types Packs/Day Years [...] on filedocumented in this encounter Care Teams Sleeve Maker Relationship Specialty Start Date End Date Jamilah Severino PA PCP - General Physician Payroll Master 11/24/15 documented as of this encounter
--- OUTSIDE RECORDS SUMMARY | 2024-02-09 21:45 | XMS_ITS | Encounter Summary ---
[facility] Address [address] [place] [id number] Care Team Providers Care Resource Conservation Specialist Name Role Phone Jamilah Severino Primary Care Provider [phone] Encounter Details Date Type Department Care Team (Late st Contact Info) Description 11/19/2017 Documentation [facility] BARIATRIC SURGERY [address] [place] [address] Social History Tobacco Use Types Packs/Day Years Used Date Smoking Tobacco: Former Cigarettes Q uit: 2009 Smokeless Tobacco: Never Comments:Is not around secon dhand smoke in house or car, but occasionally [...] 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 Past Medical History: Diagnosis Date ??? Arthritis ??? Dyspepsia ??? Fatigue ??? GERD (gastroesophageal reflux disease) ??? Hypertension uncontrolled ??? Insomnia ??? Joint pain ??? Morbid obesity (CMS/HCC) ??? MRSA infection 2008 groin incision, treated with iv abx, hospitalized, wound vac and surgery ??? UTI (urinary tract infection) finished abx on 08-02-17, rare occurence ??? Vitamin D deficiency ??? Wears glasses ??? Wears partial dentures Past Surgical History: Procedure Laterality Date ??? SECTION 1977, 1978, 1984 ??? CHOLECYSTECTOMY 1992 stones ??? ENDOSCOPY 08/06/2017 Procedure: ESOPHAGOGASTRODUODENOSCOPY WITH BIOPSY; Surgeon: Ricki Spence MD; Location: [facility] ENDOSCOPY; Service: Gastroenterology ??? GASTRIC BANDING REMOVAL 09/15/[address] Spence 09/15/17 For dysphagia, reflux, abdominal pain. Findings: chronic partial slip ??? INCISIONAL HERNIA REPAIR 1993 x2 at C section incisions, per patient no mesh ??? LAPAROSCOPIC GASTRIC BANDING 04/14/2008 [facility] ??? OOPHORECTOMY 1995 ??? TONSILLECTOMY 1964 ??? TUBAL ABDOMINAL LIGATION 1984 Allergies Allergen Reactions ??? Celebrex [Celecoxib] Shortness Of Breath ??? Lomotil [Diphenoxylate] Other (See Comments) Chest pain ??? Adhesive Tape Rash ??? Codeine Palpitations ??? Morphine And Related Palpitations Tightness in chest. Percocet, Lortab, dilaudid ok, but has to take nausea medicine with Percocet. Current Outpatient Prescriptions: ??? famotidine (PEPCID) 20 [...] Day With Meals., Disp: , Rfl: ??? predniSONE (DELTASONE) 20 MG tablet, Take 20 mg by mouth Daily., Disp: , Rfl: ??? traZODone (DESYREL) 50 MG tablet, Take 50 mg by mouth Every Night., Disp: , Rfl: ??? vitamin D (ERGOCALCIFEROL) 19019 units capsule capsule, TAKE 1 CAPSULE TWICE WEEKLY, Disp: , Rfl: 2 Nutrition Assessment Estimated energy needs: 2300 Estimated calories for weight loss: 1600 IBW (Pounds): 170 Excess body weight (Pounds): 151 Nutrition Recall 24 Hour recall: (B) (L) (D) - Reviewed and discussed with patient Exercise never Education Provided manual: Sleeve Gastrectomy Provided follow-up options for support, including contact information for dietitians here, if desired. Web-based support information and apps for smart phones and computers given. Noted that monthly support group is offered at this clinic, and that support is associated with weight loss. Recommend that team proceed with surgery and follow per protocol. Nutrition Goals Dietary Guidelines per manual Protein goal: 70-100 grams per day Eliminate sweetened beverages Exercise Goals Add 15-30 minutes of activity per day as tolerated Anamaria Spence RD 11/19/2017 8:42 AM documented in this encounter Plan of Treatment Not on file documented as of this encounter Visit Diagnoses Not on filedocumented in this encounter Care Teams Resource Conservation Specialist Relationship Specialty Start Date End Date Jamilah Severino PA PCP - General Physician Agency Service Representative 11/24/15 documented as of this encounter
--- OUTSIDE RECORDS SUMMARY | 2024-02-09 21:45 | XMS_ITS | Encounter Summary ---
Author Organization [facility] Address [address] [place] [address] Care Team Providers Care Machine Stoppage Frequency Checker Name Role Phone Jamilah Severino Primary Care Provider [phone] Encounter Details Date Type Department Care Team (Late st Contact Info) Description 08/21/[address] [facility] BARIATRIC SURGERY [address] [place] [address] Albertina Dick PA [address] [place] [address] Social History Tobacco Use Types Packs/Day Years [...] as of this encounter Progress Notes * Albertina Dick PA - 08/21/2017 8:51 AM EDT Images from the original note were not included. MD Albertina Gross PA ?? Yes, thank you Previous Messages ----- Message ----- From: HEBER Driscoll Sent: 08/20/2017 ?? 1:38 PM To: Ricki Spence MD Subject: please advise ? 57 y.o. 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 Bonilla. ?? She is aware that Dr. Bonilla is now in [place]. ??Prefers to stay w/ [facility] in [place]. ??Shelives in [place]. ?? UGI 07/09/17 shows esophageal dilatation w/ slight unilateral pouch enlargement - band vol 7.7cc. ??Unfilled band (-7cc) on 07/21/17. EGD 08/06/17 @[facility] w/ Dr. Spence, Findings: Tight outlet, chronic partial slip, zline 38 cm, NSAID antritis She does admit to episodic dysphagia/vomiting. Denies abd.pain. ??Wishes to pursue a revision. ??Needing to lose weight in order to have a knee replacement. ?? OK to proceed w/ AGBR? documented in this encounter Plan of Treatment Not on file documented as of this encounter Visit Diagnoses Not on filedocumented in this encounter Care Teams Machine Stoppage Frequency Checker Relationship Specialty Start Date End Date Jamilah Severino PA PCP - General Physician Polish Maker 11/24/15 documented as of this encounter
--- OUTSIDE RECORDS SUMMARY | 2024-02-09 21:45 | XMS_ITS | Encounter Summary ---
[facility] Address [address] [place] [address] Care Team Providers Care Police Radio Dispatcher Name Role Phone Jamilah Severino Primary Care Provider [phone] Reason for Referral * Diagnostic Imaging (Routine) - Closed Specialty Diagnoses / Procedures Referred By Contac t Referred To Contact Radiology Diagnoses Dyspepsia Procedures FL Upper GI Single Contrast With KUB Albertina Dick PA [address] [place] [address] Phone: tel: fax: [address] [address] Phone: tel: Referral ID Status Reason Start Date Expiration Date Visits Re quested Visits Authorized [id number] Closed 07/08/2017 07/08/2018 1 1 Reason for Visit * Diagnostic Imaging (Routine) - Closed Specialty Diagnoses / Procedures Referred By Contac t Referred To Contact Radiology Diagnoses Dyspepsia Procedures FL Upper GI Single Contrast With KUB Albertina Dick PA [address] [place] [address] Phone: tel: fax: [address] [address] Phone: tel: Referral ID Status Reason Start Date Expiration Date Visits Re quested Visits Authorized [id number] Closed 07/08/2017 07/08/2018 1 1 Encounter Details Date Type Department Care Team (Latest Contact Info) Description 07/09/2017 9:30 AM EDT - 07/09/2017 11:59 PM EDT Hospital Encounter [facility] XRAY [address] [place] [address] Albertina Dick PA [address] [place] [address] Dyspepsia Discharge Disposition: Home or Self Care Social History Tobacco Use Types Packs/Day Years Used Date Smoking Tobacco: Former Cigarettes Q uit: 2005 Smokeless Tobacco: Never Alcohol Use Standard Drinks/Week Comments No 0 (1 standard drink = 0.6 oz pur e alcohol) Comments No Sex and Gender Information Value Date Recorded Sex Assigned at Not on file Legal Sex Female 11:43 AM EDT Gender Identity Not on file Sexual Orientation Not on file documented as of this encounter Medications at Time of Discharge vitamin D (ERGOCALCIFEROL) 95770 units capsule capsule TAKE 1 CAPSULE TWICE WEEKLY 2 06/11/2017 diclofenac (VOLTAREN) 75 MG EC tablet TAKE 1 TABLET BY MOUTH TWICE A DAY WITH FOOD OR MILK 2 06/17/2017 08/03/2017 documented as of this encounter Plan of Treatment Not on file documented as of this encounter Procedures Procedure Name Priority Date/Time Associated Diagnosis Comments FL UPPER GI SINGLE CONTRAST W KUB Routine 07/09/2017 9:28 AM EDT Dyspepsia documented in this encounter Results * FL Upper GI [...] this exam. 10 associated images were saved. Making Line Worker imaging reveals a nonobstructive bowel gas pattern. [...] this exam. 10 associated images were saved. Making Line Worker imaging reveals a nonobstructive bowel gas pattern. [...] documented in this encounter Visit Diagnoses Diagnosis Dyspepsia Dyspepsia and other specified disorders of function of stomach documented in this encounter Administered Medications Inactive Administered Medications - up to 3 most recent administrations Medication Order MAR Action Action Date Dose Rate Site barium sulfate (E-Z-PAQUE) 96 % oral suspension reconstituted suspension 183 mL 183 mL, Oral, Once in Imaging, On Fri07/09/17 at 1000, For 1 dose, {BKC} Mix with water according to package insert. Shake well before administration. Given 07/09/2017 9:28 AM EDT 183 mL documented in this encounter Care Teams Police Radio Dispatcher Relationship Specialty Start Date End Date Jamilah Severino PA PCP - General Physician Insurance Claim Representative 11/24/15 documented as of this encounter
--- OUTSIDE RECORDS SUMMARY | 2024-02-09 21:45 | XMS_ITS | Encounter Summary ---
[facility] Address [address] [place] [id number] Care Team Providers Care Cloth Shearer Name Role Phone Jamilah Severino Primary Care Provider [phone] Reason for Visit * Reason Comments Sinus Problem Sore Throat Encounter Details Date Type Department Care Team (Late st Contact Info) Description 06/21/2016 5:00 PM EDT Office Visit [address] [place] [address] Acute pansinusitis, recurrence not specified (Primary Dx); Sore throat; Seasonal allergic rhinitis, unspecified allergic rhinitis trigger Social History Tobacco Use Types Packs/Day Years Used Date Smoking Tobacco: Never Comments No Sex and Gender Information Value Date Recorded Sex Assigned at Not on file Legal Sex Female 11:43 AM EDT Gender Identity Not on file Sexual Orientation Not on file documented as of this encounter Last Filed Vital Signs Vital Sign Reading Time Taken Comments Blood Pressure - - Pulse 98 06/23/2016 10:25 AM EDT Temperature 37.3 ??C (99.1 ??F) 06/23/2016 10:25 AM E DT Respiratory Rate 16 06/23/2016 10:25 AM EDT Oxygen Saturation 95% 06/23/2016 10:25 AM EDT Inhaled Oxygen Concentration - - Weight 142 kg (312 lb) 06/23/2016 10:25 AM EDT Height 166.4 cm (5' 5.5 ) 06/23/2016 10:25 AM ED T Body Mass Index 51.13 06/23/2016 10:25 AM EDT documented in this encounter Progress Notes * Polo Spence V, ANGELI - 06/21/2016 5:00 PM EDT Subjective Roseanne Maharaj is a 56 y.o. female. Sinus Problem This is a new problem. Episode onset: 2 weeks. The problem has been gradually worsening since onset. There has been no fever. The pain is moderate. Associated symptoms include congestion, ear pain (bilat ), headaches, sinus pressure, a sore throat (severe ) and swollen glands. Pertinent negatives include no chills, coughing, hoarse voice, neck pain, shortness of breath or sneezing. Treatments tried: allergy medication. The treatment provided no relief. Sore Throat This is a new problem. Episode onset: 3 days. The problem has been gradually worsening. There has been no fever. The pain is moderate. Associated symptoms include congestion, ear pain (bilat ), headaches and swollen glands. Pertinent negatives include no abdominal pain, coughing, diarrhea, ear discharge, hoarse voice, neck pain, shortness of breath, trouble swallowing or vomiting. She has had exposure to strep. She has had no exposure to mono. She has tried cool liquids for the symptoms. The treatment provided no relief. The following portions of the patient's history were reviewed and updated as appropriate: allergies, current medications, past medical history, past social history, past surgical history and problem list. Review of Systems Constitutional: Negative for appetite change, chills and fever. HENT: Positive for congestion, ear pain (bilat ), postnasal drip, rhinorrhea, sinus pressure and sore throat (severe ). Negative for ear discharge, hoarse voice, sneezing and trouble swallowing. Eyes: Negative. Respiratory: Negative for cough, shortness of breath and wheezing. Cardiovascular: Negative. Gastrointestinal: Negative for abdominal pain, diarrhea, nausea and vomiting. Musculoskeletal: Negative. Negative for neck pain. Skin: Negative. Neurological: Positive for headaches. Negative for dizziness. Pulse 98, temperature 99.1 ??F (37.3 ??C), resp. rate 16, height 65.5 (166.4 cm), weight (!) 312 lb (142 kg), SpO2 95 %. Objective Physical Exam Constitutional: She is oriented to person, place, and time. Vital signs are normal. She appears well-developed and well-nourished. HENT: Head: Normocephalic. Right Ear: External ear and ear canal normal. No drainage, swelling or tenderness. Tympanic membrane is bulging. Tympanic membrane is not erythematous. Left Ear: External ear and ear canal normal. No drainage, swelling or tenderness. Tympanic membraneis bulging (left > right). Tympanic membrane is not erythematous. Nose: Mucosal edema and rhinorrhea present. Right sinus exhibits maxillary sinus tenderness and frontal sinus tenderness. Left sinus exhibits maxillary sinus tenderness and frontal sinus tenderness. Mouth/Throat: Uvula is [...] behavior is normal. Thoughtcontent normal. Vitals reviewed. Results for orders placed or performed in visit on 06/21/16 POC Rapid Strep A Result Value Ref Range Rapid Strep A Screen Negative Negative, VALID, INVALID, Not Performed Internal Control Passed Passed Lot Number [id number] Expiration Date 09/2017 Assessment/Plan Roseanne was seen today for sinus problem and sore throat. Diagnoses and all orders for this visit: Acute pansinusitis, recurrence not specified - amoxicillin-clavulanate (AUGMENTIN) 875-125 MG per tablet; Take 1 tablet by mouth 2 (Two) Times aDay for 10 days. Sore throat - POC Rapid Strep A Seasonal allergic rhinitis, unspecified allergic rhinitis trigger - fluticasone (FLONASE) 50 MCG/ACT nasal spray; 2 sprays into each nostril Every Night for 30 days.Administer 2 sprays in each nostril for each dose. documented in this encounter Plan of Treatment Not on file documented as of this encounter Procedures Procedure Name Priority Date/Time Associated Diagnosis Comments POCT RAPID STREP A Routine 06/21/2016 5: 10 PM EDT Sore throat documented in this encounter Results * POC Rapid Strep A (06/21/2016 5:10 PM EDT) Rapid Strep A Screen Negative Negative, VALID, INVALID, Not Performed [facility] Internal Control Passed Passed [facility] Lot Number [id number] [facility] Expiration Date 09/2017 [facility] Other 06/21/2016 5:10 PM EDT Polo Bebe V, PUMP SERVICER POINT OF CARE TEST ORDERABL ES Final Result [facility]
[address] [place] [address], documented in this encounter Visit Diagnoses Diagnosis Acute pansinusitis, recurrence not specified- Primary Sore throat Acute pharyngitis Seasonal allergic rhinitis, unspecified allergic rhinitis trigger documented in this encounter Care Teams Cloth Shearer Relationship Specialty Start Date End Date Jamilah Severino PA PCP - General Physician Information Technology Coordinator 11/24/15 documented as of this encounter
--- OUTSIDE RECORDS SUMMARY | 2024-02-09 21:45 | XMS_ITS | Encounter Summary ---
[facility] Address [address] [place] [address] Care Team Providers Care Window And Siding Craftsman Name Role Phone Jamilah Severino Primary Care Provider [phone] Encounter Details Date Type Department Care Team (Late st Contact Info) Description 09/26/2017 3:30 PM EDT Office Visit [facility] BARIATRIC SURGERY [address] [place] [address] Viktoriya Hoover MD [address] [place] [address] Gastric band slippage (Primary Dx); Gastroesophageal reflux disease, esophagitis presence not specified; History of removal of laparoscopic gastric banding device; Morbid obesity Social History Tobacco Use Types Packs/Day Years [...] Sign Reading Time Taken Comments Blood Pressure 144/88 09/26/2017 3:44 PM EDT Pulse 78 09/26/2017 3:44 PM EDT Temperature 36.7 ??C (98.1 ??F) 09/26/2017 3:44 PM ED T Respiratory Rate 18 09/26/2017 3:44 PM EDT Oxygen Saturation 99% 09/26/2017 3:44 PM EDT Inhaled Oxygen Concentration - - Weight 143 kg (315 lb 8 oz) 09/26/2017 3:44 PM E DT Height 166.4 cm (5' 5.5 ) 09/26/2017 3:44 PM EDT Body Mass Index 51.7 09/26/2017 3:44 PM EDT documented in this encounter Progress Notes * Viktoriya Hoover MD - 09/26/2017 3:30 PM EDT [facility]IATRIC [facility] BARIATRIC SURGERY [address] [facility] [address] Roseanne Maharaj. 1960 Day Of Visit: 09/26/2017 Reason for Visit: band removal follow up HPI: 57 y.o. year old female s/p LAGB Realize C by Dr. Bonilla 03/2008 followed by AGBR removal by Dr. Spence 09/15/17 For dysphagia, reflux, abdominal pain. Findings: chronic partial slip. Came to office 4 days post op with complaint of old port site incision pain and oozing. Normal physical exam. No signs of infection. The pain at the port site is less now, but feels a lot of burning pain there now. Doing well. Tolerating PO w/out issue. Denies fever, nausea, vomiting and abdominal pain. Bowels are moving. Voiding well. No other issues/concerns. Dysphagia is completely better since band out. Tries to do high protein foods. Not much exercise since band out due to incisional pain. Going back to work in 1 more week. Path: Final Diagnosis GROSS ONLY DIAGNOSIS: Gross findings are consistent with a gastric banding system and port. Past Medical History: Diagnosis Date ??? Arthritis ??? Dyspepsia ??? Fatigue ??? GERD (gastroesophageal reflux disease) ??? Hypertension uncontrolled ??? Joint pain ??? Morbid obesity (CMS/HCC) ??? MRSA infection 2008 groin incision, treated with iv abx, hospitalized, wound vac and surgery ??? UTI (urinary tract infection) finished abx on 08-02-17, rare occurence ??? Vitamin D deficiency ??? Wears glasses ??? Wears partial dentures Past Surgical History: Procedure Laterality Date ??? SECTION 1977, 1979, 1985 ??? CHOLECYSTECTOMY 1991 ??? ENDOSCOPY 08/06/2017 Procedure: ESOPHAGOGASTRODUODENOSCOPY WITH BIOPSY; Surgeon: Ricki Spence MD; Location: [facility] END[facility]COPY; Service: Gastroenterology ??? INCISIONAL HERNIA REPAIR [...] Nausea or Vomiting., Disp: , Rfl: ??? traZODone (DESYREL) 50 MG tablet, Take 50 mg by mouth Every Night., Disp: , Rfl: ??? vitamin D (ERGOCALCIFEROL) 80736 units capsule capsule, TAKE 1 CAPSULE TWICE [...] History Narrative ??? No narrative on file LMP (LMP Unknown) Physical Exam Constitutional: She is oriented to person, place, and time. She appears well- developed and well-nourished. No distress. HENT: Head: Normocephalic and atraumatic. Mouth/Throat: No oropharyngeal exudate. Pulmonary/Chest: Effort normal. No respiratory distress. Abdominal: Soft. She exhibits no distension. Lap incisions well-healed. No erythema/fluctuance/drainage. Old band port site with small amount of induration, no signs of infection, surrounding faint bruising. No TTP Neurological: She is alert and oriented to person, place, and time. No cranial nerve deficit. Skin: Skin is warm and dry. No rash noted. She is not diaphoretic. No erythema. Psychiatric: She has a normal mood and affect. Her behavior is normal. Judgment and thought contentnormal. Assessment: 2 weeks s/p AGBR Plan: Discussed diet, exercise, and lifestyle changes today. Pt plans to have a sleeve gastrectomy. She remains compliant in her preoperative weight loss effort. Call w/issues and concerns. Reports she has already filled out an intake packet. RTC sooner with problems. documented in this encounter Plan of Treatment Not on file documented as of this encounter Visit Diagnoses Diagnosis Gastric band slippage- Primary Gastroesophageal reflux disease, esophagitis presence not specified History of removal of laparoscopic gastric banding device Morbid obesity documented in this encounter Care Teams Window And Siding Craftsman Relationship Specialty Start Date End Date Jamilah Severino PA PCP - General Physician Powerhouse Attendant 11/24/15 documented as of this encounter
--- OUTSIDE RECORDS SUMMARY | 2024-02-09 21:45 | XMS_ITS | Encounter Summary ---
[facility] Address [address] [place] [id number] Care Team Providers Care Derrick Boat Leverman Name Role Phone Jamilah Severino Primary Care Provider [phone] Reason for Visit * Reason Comments Eye Problem Encounter Details Date Type Department Care Team (Latest Contact Info) Description 01/27/2017 12:00 PM EST Office Visit [address] [place] [address] Allergic conjunctivitis of left eye (Primary Dx) Social History Tobacco Use Types Packs/Day Years Used Date Smoking Tobacco: Never Comments No Sex and Gender Information Value Date Recorded Sex Assigned at Not on file Legal Sex Female 11:43 AM EDT Gender Identity Not on file Sexual Orientation Not on file documented as of this encounter Last Filed Vital Signs Vital Sign Reading Time Taken Comments Blood Pressure 124/82 01/27/2017 11:54 AM EST Pulse 100 01/27/2017 11:54 AM EST Temperature 37.2 ??C (98.9 ??F) 01/27/2017 11:[address] Respiratory Rate 16 01/27/2017 11:54 AM EST Oxygen Saturation 96% 01/27/2017 11:54 AM EST Inhaled Oxygen Concentration - - Weight 139 kg (307 lb) 01/27/2017 11:54 AM EST Height 166.4 cm (5' 5.5 ) 01/27/2017 11:54 AM ES T Body Mass Index 50.31 01/27/2017 11:54 AM EST documented in this encounter Patient Instructions * Patient Instructions* Christina Colunga, ANGELI - 01/27/2017 12:00 PM EST Images from the original note were not included. Allergic Conjunctivitis A thin, clear membrane (conjunctiva) covers the white part of your eye and the inner surface of your eyelid. Allergic conjunctivitis happens when this membrane gets irritated. This is caused by allergies. Common things (allergens) that can cause an allergic reaction include: ?? Dust. ?? Pollen. ?? Mold. ?? Animal: Hair. Fur. Skin. Saliva or other animal fluids. This condition can make your eye red or pink. It can also make your eye feel itchy. This condition cannot be spread by one person to another person (noncontagious). HOME CARE ?? Take or apply medicines only as told by your doctor. ?? Avoid touching or rubbing your eyes. ?? Apply a cool, clean washcloth to your eye for 10-20 minutes. Do this 3-4 times a day. ?? If you wear contact lenses, do not wear them until the irritation is gone. Wear glasses in the meantime. ?? Avoid wearing eye makeup until the irritation is gone. ?? Try to avoid whatever allergen is causing the allergic reaction. GET HELP IF: ?? Your symptoms get worse. ?? You have pus draining from your eyes. ?? You have new symptoms. ?? You have a fever. This information is not intended to replace advice given to you by your health care provider. Make sure you discuss any questions you have with your health care provider. Document Released: 08/28/2010 Document Revised: 03/31/2015 Document Reviewed: 12/20/2014 [employer] Interactive Patient Education ??2017 [employer]. documented in this encounter Progress Notes * Christina Colunga APRN - 01/27/2017 12:00 PM EST Images from the original note were not included. Subjective Roseanne Maharaj is a 56 y.o. female. Chief Complaint Patient presents with ??? Conjunctivitis Conjunctivitis The current episode started yesterday. The problem has been gradually worsening. Nothing relieves the symptoms. Associated symptoms include eye itching and eye redness. Pertinent negatives include noorthopnea, no fever, no photophobia, no nausea, no vomiting, no muscle aches, no neck pain, no neckstiffness, no cough, no URI, no wheezing, no rash, no eye discharge and no eye pain. The following portions of the patient's history were reviewed and updated as appropriate: allergies, current medications, past family history, past medical history, past social history, past surgicalhistory and problem list. Current Outpatient Prescriptions: ??? cromolyn (OPTICROM) 4 % ophthalmic solution, Administer 1 drop into the left eye 4 (Four) Timesa Day., Disp: 10 mL, Rfl: 0 ??? diclofenac-misoprostol (ARTHROTEC 75) 75-0.2 MG EC tablet, Take 1 tablet by mouth 2 (two) timesa day., Disp: , Rfl: ??? losartan-hydrochlorothiazide (HYZAAR) 100-25 MG per tablet, Take 1 tablet by mouth daily., Disp: , Rfl: Review of Systems Constitutional: Negative. Negative for fever. HENT: Negative. Eyes: Positive for redness and itching. Negative for photophobia, pain, discharge and visual disturbance. Respiratory: Negative. Negative for cough and wheezing. Cardiovascular: Negative. Negative for orthopnea. Gastrointestinal: Negative for nausea and vomiting. Musculoskeletal: Negative for neck pain. Skin: Negative for rash. BP 124/82 (BP Location: Left arm, Patient Position: Sitting, Cuff Size: Large Adult) Pulse 100 Temp 98.9 ??F (37.2 ??C) (Temporal Artery ) Resp 16 Ht 65.5 (166.4 cm) Wt (!) 307 lb (139 kg) LMP (LMP Unknown) SpO2 96% BMI 50.31 kg/m2 Objective Allergies Allergen Reactions ??? Celebrex [Celecoxib] Shortness Of Breath ??? Lomotil [Diphenoxylate] Swelling ??? Codeine Palpitations ??? Morphine And Related Palpitations Physical Exam Constitutional: She is oriented to person, place, and time. She appears well- developed and well-nourished. No distress. HENT: Head: Normocephalic. Right Ear: External ear normal. Left Ear: External ear normal. Nose: Nose normal. Eyes: EOM and lids are normal. Pupils are equal, round, and reactive to light. Right eye exhibits no chemosis, no discharge, no exudate and no hordeolum. No foreign body present in the right eye. Left eye exhibits no chemosis, no discharge, no exudate and no hordeolum. No foreign body present in the left eye. Left conjunctiva is injected. No scleral icterus. Left conjunctivae injected, lids with mild edema, no foreign bodies visualized, no stye. Neck: Normal range of motion. Neck supple. No JVD present. No tracheal deviation present. No thyromegaly present. Cardiovascular: Normal rate, regular rhythm and normal heart sounds. Pulmonary/Chest: Effort normal and breath sounds normal. No stridor. No respiratory distress. She has no wheezes. She has no rales. She exhibits no tenderness. Lymphadenopathy: She has no cervical adenopathy. Neurological: She is alert and oriented to person, place, and time. Skin: Skin is warm and dry. She is not diaphoretic. Psychiatric: She has a normal mood and affect. Her behavior is normal. Vitals reviewed. Assessment/Plan Roseanne was seen today for conjunctivitis. Diagnoses and all orders for this visit: Allergic conjunctivitis of left eye Other orders - cromolyn (OPTICROM) 4 % ophthalmic solution; Administer 1 drop into the left eye 4 (Four) Times aDay. An After Visit Summary was printed, reviewed, and given to the patient. Understanding verbalized and agrees with treatment plan. If no improvement or becomes worse, follow up with primary or go to [facility]. January 27, 2017 12:21 PM documented in this encounter Plan of Treatment Not on file documented as of this encounter Visit Diagnoses Diagnosis Allergic conjunctivitis of left eye- Primary Other chronic allergic conjunctivitis documented in this encounter Care Teams Derrick Boat Leverman Relationship Specialty Start Date End Date Jamilah Severino PA PCP - General Physician Director Of Nurses Registry 11/24/15 documented as of this encounter
--- OUTSIDE RECORDS SUMMARY | 2024-02-09 21:45 | XMS_ITS | Encounter Summary ---
[facility] Address [address] [place] [address] Care Team Providers Care Wheel Mill Operator Name Role Phone Jamilah Severino Primary Care Provider [phone] Reason for Visit * Auth/Cert Specialty Diagnoses / Procedures Referred By Contac t Referred To Contact Diagnoses Dysphagia, unspecified type Dysphagia, unspecified type [R13.10] Procedures ESOPHAGOGASTRODUODENOSCOPY Referral ID Status Reason Start Date Expiration Date Visits Re quested Visits Authorized [id number] 1 1 Encounter Details Date Type Department Care Team (Latest Contact Info) Description 08/06/2017 8:19 AM EDT - 08/06/2017 12:00 PM EDT Hospital Encounter [facility] OR [address] [place] [address] Ricki Spence MD [address] [facility] [address] [place] [address] Dysphagia, unspecified type Discharge Disposition: Home or Self Care Social [...] Sign Reading Time Taken Comments Blood Pressure 156/86 08/06/2017 11:28 AM EDT Pulse 74 08/06/2017 11:28 AM EDT Temperature 36.4 ??C (97.6 ??F) 08/06/2017 11:13 AM E DT Respiratory Rate 18 08/06/2017 11:28 AM EDT Oxygen Saturation 96% 08/06/2017 11:28 AM EDT Inhaled Oxygen Concentration - - Weight - - Height - - Body Mass Index - - documented in this encounter Discharge Instructions * Attachments The following attachments cannot be sent through Care Everywhere. * GENERAL ANESTHESIA ADULT CARE AFTER (FAROESE) * ESOPHAGOGASTRODUODENOSCOPY CARE AFTER (FAROESE) documented in this encounter Medications at Time [...] by mouth Every Night. vitamin D (ERGOCALCIFEROL) 94579 units capsule capsule TAKE 1 CAPSULE TWICE WEEKLY 2 06/11/2017 documented as of this encounter H&P Notes * Ricki Spence MD - 08/06/2017 10:34 AM EDT H&P reviewed. The patient was examined and there are no changes to the H&P. Source Note - Albertina Dick PA - 07/21/2017 3:30 PM EDT [facility] Bariatric Surgery [address] [facility] [address] Patient Name: Roseanne Maharaj. : 1960 Date of Visit: 07/21/2017 Reason for Visit: AGB followup HPI: Roseanne Montelongo Nicko is a 57 y.o. 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 Bonilla. She is aware that Dr. Bonilla is now in [place]. Prefers to stay w/ [facility] in [place]. She lives in [place]. Presented earlier this month wanting to get [...] OR MILK 2 ??? vitamin D (ERGOCALCIFEROL) 56767 units capsule capsule TAKE 1 CAPSULE TWICE [...] * Gastric banding status [Z98.84] Procedure/CPT?? Codes: PA EGD TRANSORAL BIOPSY SINGLE/MULTIPLE [41429] Procedure(s): ESOPHAGOGASTRODUODENOSCOPY WITH BIOPSY Surgeon(s): Ricki Spence MD Anesthesia: * No anesthesia type entered * Staff: Monitor/Sedation Nurse: Alisia Lyons RN Endo Flat Lock Operator: Fela Knox Estimated Blood Loss: none Urine [...] Case Report Surgical Pathology Report ? Case: [id number] ? Authorizing Provider: ??Ricki Spence MD ? Collected: ? 08/06/2017 10:56 AM ? Ordering Location: ? [facility] ?? Received: ?08/06/2017 11:16 AM ? ENDO SUITES ? Pathologist: ? Cristobal Schmidt MD ? Specimens: ?? 1) - Gastric, Antrum ? 2) - Esophagus, Distal ? 08/07/2017 5:26 PM EDT [facility] Clinical Information The working history is dysphagia. 08/07/2017 5:26 PM [employer] [facility] Final Diagnosis 1. GASTRIC ANTRUM BIOPSY: Reactive gastropathy; negative for H.pylori on routine stain. 2. DISTAL ESOPHAGUS BIOPSY: Changes compatible with reflux. Negative for eosinophilic esophagitis and Holt's metaplasia. Negative for dysplasia and neoplasia. JFJ/klb 08/07/2017 5:26 PM EDT [facility] Gross Description Specimen 1 received [...] cassette two. HBM/dlb 08/07/2017 5:26 PM EDT [facility] Microscopic Description Sections from specimen [...] dysplasia, or neoplasia. 08/07/2017 5:26 PM EDT [facility] Embedded Images 08/07/2017 5:26 PM EDT [facility] Tissue Pyloric antrum structure / Unknown 08/06/2017 10:56 AM EDT 08/06/2017 11:16 AM EDT Tissue specimen (specimen) Structure of lower third of esophagus / Unknown 08/06/2017 11:00 AM EDT 08/06/2017 11:16 AM EDT us Ricki Spence MD PATHOLOGY/CYTOLOGY ORDERAB LES Final Result [facility]
[address] [place] [address], documented in this encounter Visit Diagnoses Diagnosis Dysphagia- Primary Dysphagia, unspecified type documented in this encounter Admitting Diagnoses Diagnosis [...] RN) documented in this encounter Care Teams Wheel Mill Operator Relationship Specialty Start Date End Date Jamilah Severino PA PCP - General Physician Legal Clerk 11/24/15 documented as of this encounter
--- OUTSIDE RECORDS SUMMARY | 2024-02-09 21:45 | XMS_ITS | Encounter Summary ---
Author Organization [facility] Address [address] [place] [id number] Care Team Providers Care Superintendent Production Name Role Phone Jamilah Severino Primary Care Provider [phone] Reason for Visit * Reason Comments Earache Sore Throat Cough Encounter Details Date Type Department Care Team (Late st Contact Info) Description 01/12/2016 9:45 AM EDT Office Visit [address] [place] [address] Bronchitis (Primary Dx) Social History Tobacco Use Types [...] Taken Comments Blood Pressure - - Pulse 100 01/12/2016 9:45 AM EDT Temperature 35.8 ??C (96.4 ??F) 01/12/2016 9:45 AM ED T Respiratory Rate 18 01/12/2016 9:45 AM EDT Oxygen Saturation 96% 01/12/2016 9:45 AM EDT Inhaled Oxygen Concentration - - Weight 138 kg (304 lb 6.4 oz) 01/12/2016 9:45 AM EDT Height 166.4 cm (5' 5.5 ) 01/12/2016 9:45 AM EDT Body Mass Index 49.88 01/12/2016 9:45 AM EDT documented in this encounter Patient Instructions * Patient Instructions* Celia Kimbrough APRN - 01/12/2016 10:12 AM EDT Images from the original note were not included. Acute Bronchitis Bronchitis is when the airways that extend from the windpipe into the lungs get red, puffy, and painful (inflamed). Bronchitis often causes thick spit (mucus) to develop. This leads to a cough. A cough is the most common symptom of bronchitis. In acute bronchitis, the condition usually begins suddenly and goes away over time (usually in 2 weeks). Smoking, allergies, and asthma can make bronchitis worse. Repeated episodes of bronchitis may cause more lung problems. HOME CARE ?? Rest. ?? Drink enough fluids to keep your pee (urine) clear or pale yellow (unless you need to limit fluids as told by your doctor). ?? Only take [id number] or prescription medicines as told by your doctor. ?? Avoid smoking and secondhand smoke. These can make bronchitis worse. If you are a smoker, think about using nicotine gum or skin patches. Quitting smoking will help your lungs heal faster. ?? Reduce the chance of getting bronchitis again by: Washing your hands often. Avoiding people with cold symptoms. Trying not to touch your hands to your mouth, nose, or eyes. ?? Follow up with your doctor as told. GET HELP IF: Your symptoms do not improve after 1 week of treatment. Symptoms include: ?? Cough. ?? Fever. ?? Coughing up thick spit. ?? Body aches. ?? Chest congestion. ?? Chills. ?? Shortness of breath. ?? Sore throat. GET HELP RIGHT AWAY IF: ?? You have an increased fever. ?? You have chills. ?? You have severe shortness of breath. ?? You have bloody thick spit (sputum). ?? You throw up (vomit) often. ?? You lose too much body fluid (dehydration). ?? You have a severe headache. ?? You faint. MAKE SURE YOU: ?? Understand these instructions. ?? Will watch your condition. ?? Will get help right away if you are not doing well or get worse. This information is not intended to replace advice given to you by your health care provider. Make sure you discuss any questions you have with your health care provider. Document Released: 08/26/2008 Document Revised: 11/10/2013 Document Reviewed: 08/31/2013 [employer] Interactive Patient Education ??2016 [employer] documented in this encounter Progress Notes * Celia Kimbrough APRN - 01/12/2016 5:43 PM EDTAddended by: CELIA KIMBROUGH on: 01/12/2016 05:43 PM Modules accepted: Orders * Celia Kimbrough APRN - 01/12/2016 10:13 AM EDT Subjective Roseanne Maharaj is a 55 y.o. female. Earache Associated symptoms include coughing, rhinorrhea and a sore throat. Pertinent negatives include no headaches or rash. Sore Throat Associated symptoms include coughing and ear pain. Pertinent negatives include no headaches or shortness of breath. Cough This is a new problem. The current episode started in the past 7 days. The problem has been gradually worsening. The problem occurs hourly. The cough is non-productive. Associated symptoms include ear congestion, ear pain, a fever (low grade last night), rhinorrhea and a sore throat. Pertinent negatives include no chest pain, chills, headaches, heartburn, hemoptysis, myalgias, nasal congestion, postnasal drip, rash, shortness of breath, sweats, weight loss or wheezing. Exacerbated by: night time. She has tried nothing for the symptoms. There is no history of asthma or COPD. The following portions of the patient's history were reviewed and updated as appropriate: allergies, current medications, past family history, past medical history, past social history, past surgicalhistory and problem list. Review of Systems Constitutional: Positive for fever (low grade last night). Negative for chills and weight loss. HENT: Positive for ear pain, rhinorrhea and sore throat. Negative for postnasal drip. Respiratory: Positive for cough. Negative for hemoptysis, shortness of breath and wheezing. Cardiovascular: Negative for chest pain. Gastrointestinal: Negative for heartburn. Musculoskeletal: Negative for myalgias. Skin: Negative for rash. Neurological: Negative for headaches. Objective Physical Exam Constitutional: She appears well-developed and well-nourished. She appears ill. HENT: Head: Normocephalic and atraumatic. Right Ear: Tympanic membrane and ear canal normal. Left Ear: Tympanic membrane and ear canal normal. Nose: Rhinorrhea present. Right sinus exhibits no maxillary sinus tenderness and no frontal sinus tenderness. Left sinus exhibits no maxillary sinus tenderness and no frontal sinus tenderness. Mouth/Throat: No posterior oropharyngeal edema or posterior oropharyngeal erythema. Cardiovascular: Regular rhythm and normal heart sounds. Pulmonary/Chest: Effort normal. She has no wheezes. She has rhonchi (and productive cough through out exam). She has no rales. Lymphadenopathy: She has no cervical adenopathy. Skin: Skin is warm and dry. Assessment/Plan Roseanne was seen today for earache, sore throat and cough. Diagnoses and all orders for this visit: Bronchitis Other orders - promethazine-dextromethorphan (PROMETHAZINE-DM) 6.25-15 MG/5ML syrup; Take 5 mL by mouth At NightAs Needed for cough for up to 5 days. - albuterol (PROVENTIL HFA;VENTOLIN HFA) 108 (90 BASE) MCG/ACT inhaler; Inhale 2 puffs Every 4 (Four) Hours As Needed for wheezing or shortness of air. documented in this encounter Plan of Treatment Not on file documented as of this encounter Visit Diagnoses Diagnosis Bronchitis- Primary Bronchitis, not specified as acute or chronic documented in this encounter Care Teams Superintendent Production Relationship Specialty Start Date End Date Jamilah Severino PA PCP - General Physician Corporate Real Estate Manager 11/24/15 documented as of this encounter
--- OUTSIDE RECORDS SUMMARY | 2024-02-09 21:45 | XMS_ITS | Encounter Summary ---
[facility] Address [address] [place] [address] Care Team Providers Care Pulp Screen Operator Name Role Phone Jamilah Severino Primary Care Provider [phone] Encounter Details Date Type Department Care Team (Late st Contact Info) Description 11/11/[address] [facility] BARIATRIC SURGERY [address] [place] [address] Jett Kennedy MA Social History Tobacco Use Types Packs/Day Years [...] on filedocumented in this encounter Care Teams Pulp Screen Operator Relationship Specialty Start Date End Date Jamilah Severino PA PCP - General Physician Configuration Manager 11/24/15 documented as of this encounter
--- OUTSIDE RECORDS SUMMARY | 2024-02-09 21:45 | XMS_ITS | Encounter Summary ---
Author Organization [facility] Address [address] [place] [address] Care Team Providers Care Marine Engineer Cpvec Name Role Phone Jamilah Severino Primary Care Provider [phone] Encounter Details Date Type Department Care Team (Late st Contact Info) Description 11/19/2017 11:00 AM EDT Office Visit [facility] [address] [place] [address] Viktoriya Márquez MD [address] [place], [place] [id number] Essential hypertension (Primary Dx); Gastroesophageal reflux disease, esophagitis presence not specified; History of removal of laparoscopic gastric banding device; Body mass index (BMI) of 50-59.9 in adult; Other fatigue Social History Tobacco Use Types Packs/Day Years Used Date Smoking Tobacco: Former Cigarettes Q uit: 2009 Smokeless Tobacco: Never Tobacco Cessation:Counseling Given: Yes [...] 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 [facility] [address] [address] Patient Name: Roseanne Maharaj : 1960 Date of Visit: 11/19/2017 Chief Complaint: weight gain; unable to maintain weight loss History of Present Illness: Roseanne Maharaj is a 57 y.o. female who presents today for evaluation, education and consultation regarding weight loss surgery. The patient is interested in sleeve gastrectomy (hx AGB). She is s/p LAGB Realize C by Dr. Bonilla 03/2008 followed by AGBR removal by Dr. Spence 09/15/17 For dysphagia, reflux, abdominal pain. Findings: chronic partial slip. Roseanne has been overweight for at least 40 years, has been 35 pounds or more overweight for at least 40 years, has been 100 pounds or more overweight for 25 or more years and started dieting at age 30. The patient describes their eating habits as snacker. Previous diet attempts include: High Protein, Jacinto's Diet and Slim Fast; None; None. The most weight Roseanne lost was 133 pounds after adjustable gastric band but was only able to maintain that weight loss for 7 years. Her maximum lifetime weight is 350 pounds. Weight before band was 350. Lowest weight was 217. As above, patient has been overweight for many years, with numerous failed dietary/weight loss attempts. She now has obesity related comorbidities and as such has decided to pursue weight loss surgery. All past medical, surgical, social and family history have been obtained and discussed as pertinentto bariatric surgery as below. Chronic osteoarthritis, fatigue, and HTN stable. No personal or family hx of VTE. No personal hx of [place], dad had [place] at 61 years old. Infrequent heartburn, controlled by daily Pepcid. Takes prednisone 1 week per month to decrease inflammation in knees. Past Medical History: Diagnosis Date ??? Arthritis [...] WITH BIOPSY; Surgeon: Ricki Spence MD; Location: [facility]; Service: Gastroenterology ??? GASTRIC BANDING REMOVAL [...] Disp: , Rfl: ??? vitamin D (ERGOCALCIFEROL) 12185 units capsule capsule, TAKE 1 CAPSULE TWICE WEEKLY, Disp: , Rfl: 2 Social History Social History ??? Marital status: Spouse name: N/A ??? Number of children: N/A ??? 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 Smoking status: Former Smoker Types: Cigarettes Quit date: 2009 ??? Smokeless tobacco: Never Used Comment: Is not around secondhand smoke in house or car, but occasionally with patients. ??? Alcohol use No ??? Drug use: No ??? Sexual activity: Not on file Other Topics Concern ??? Not on file Social History Narrative Lives with . Family History Problem Relation Age of Onset ??? Cancer Mother ??? Hypertension Father ??? Heart disease Father ??? Cancer Sister Review of Systems Constitutional: Positive for fatigue and unexpected weight gain. Negative for chills, diaphoresis, fever and unexpected weight loss. HENT: Negative for congestion and facial swelling. Eyes: Negative for blurred vision, double vision and discharge. Respiratory: Negative for chest tightness, shortness of breath and stridor. Cardiovascular: Negative for chest pain, palpitations and leg swelling. Gastrointestinal: Negative for blood in stool. Endocrine: Negative for polydipsia. Genitourinary: Negative for hematuria. Musculoskeletal: Positive for arthralgias. Skin: Negative for color change. Allergic/Immunologic: Negative for immunocompromised state. Neurological: Negative for confusion. Psychiatric/Behavioral: Negative for self-injury. Physical Exam: Vital Signs: Weight: (!) 146 kg (321 lb 8.2 oz) Body mass index is 52.69 kg/m??. Temp: 97.5 ??F (36.4 ??C) Heart Rate: 66 BP: 138/72 Physical Exam Constitutional: She is oriented to person, place, and time. She appears well- developed and well-nourished. HENT: Head: Normocephalic and atraumatic. Nose: Nose normal. Eyes: Pupils are equal, round, and reactive to light. Conjunctivae and EOM are normal. Neck: Normal range of motion. Neck supple. Carotid bruit is not present. No tracheal deviation present. No thyromegaly present. Cardiovascular: Normal rate, regular rhythm and normal heart sounds. Pulmonary/Chest: Effort normal and breath sounds normal. No respiratory distress. Abdominal: Soft. She exhibits no distension. There is no hepatosplenomegaly. There is no tenderness. Musculoskeletal: Normal range of motion. She exhibits edema. She exhibits no deformity. B/l pretibial edema, right food with many prominent bridging veins/small varicosities Neurological: She is alert and oriented to person, place, and time. No cranial nerve deficit. Coordination normal. Skin: Skin is warm and dry. No rash noted. Psychiatric: She has a normal mood and affect. Her behavior is normal. Judgment and thought contentnormal. Vitals reviewed. Patient Active Problem List Diagnosis ??? Essential hypertension ??? Osteoarthritis ??? Joint pain ??? Morbid obesity (CMS/HCC) ??? Dyspepsia ??? Vitamin D deficiency ??? Fatigue ??? Dysphagia Assessment: Roseanne Maharaj is a 57 y.o. year old female with medically complicated obesity pursuing sleeve gastrectomy (previous AGBR). Weight loss surgery is deemed medically necessary given the following obesity related comorbiditiesincluding hypertension, osteoarthritis, knee pain, GERD and edema with current Weight: (!) 146 kg (321 lb 8.2 oz) and Body mass index is 52.69 kg/m??.. She is a good candidate for weight loss surgery pending further evaluation. Plan: The consultation plan and program requirements were reviewed with the patient. The patient has been advised that a letter of medical support must be obtained from her primary care physician or referring provider. A psychological evaluation will be arranged. A nutritional evaluation will be performed. The patient was advised to start a high protein and low carbohydrate diet. Necessary lifestyle modifications were discussed. Instructions on how to access KELLEE was given to the patient. KELLEE is an internet based educational video that explains the surgical procedure chosen and answers basicquestions regarding that procedure. Preoperative testing will include: CBC, CMP, Lipids, TSH, HgA1C, H.Pylori, Pulmonary Function Testing, CXR, EKG and EGD (already done before band removal) Preop clearances required prior to surgery will include Cardiac. Patient understands that bariatric surgery is not cosmetic surgery but rather a tool to help make alifelong commitment to lifestyle changes including diet, exercise, behavior modifications, and healthy habits. The patient has been educated on expected postoperative lifestyle changes, including commitment to high protein diet, vitamin regimen, and exercise program. They are aware that support groups are encouraged for optimal weight loss results. I spent 9 minutes discussion smoking cessation and/or avoidance of second-hand smoke. I spent 45 minutes with the patient and 30 minutes was spent counseling. Viktoriya Márquez MD documented in this encounter Plan of Treatment Scheduled Orders Name Type Priority Associated Diagnoses Orde r Schedule CBC & Differential Lab Panel Routine Essential hypertension Gastroesophageal reflux disease, esophagitis presence not specified History of removal of laparoscopic gastric banding device Body mass index (BMI) of 50-59.9 in adult Other fatigue Expected: 12/19/2017 (Approximate) Comprehensive Metabolic Panel Lab Routine Essential hypertension Gastroesophageal reflux disease, esophagitis presence not specified History of removal of laparoscopic gastric banding device Body mass index (BMI) of 50-59.9 in adult Other fatigue Expected: 12/19/2017 (Approximate) Helicobacter Pylori, IgA IgG IgM Lab Routine Gastroesophageal reflux disease, esophagitis presence not specified Expected: 11/24/2017 (Approximate), Expires: 11/19/2018 TSH Lab Routine Essential hypertension Gastroesophageal reflux disease, esophagitis presence not specified History of removal of laparoscopic gastric banding device Body mass index (BMI) of 50-59.9 in adult Other fatigue Expected: 12/19/2017 (Approximate) Lipid Panel Lab Routine Essential hypertension Gastroesophageal reflux disease, esophagitis presence not specified History of removal of laparoscopic gastric banding device Body mass index (BMI) of 50-59.9 in adult Other fatigue Expected: 12/19/2017 (Approximate) Hemoglobin A1c Lab Routine Essential hypertension Gastroesophageal reflux disease, esophagitis presence not specified History of removal of laparoscopic gastric banding device Body mass index (BMI) of 50-59.9 in adult Other fatigue Expected: 12/19/2017 (Approximate) CBC Auto Differential Lab Routine Essential hypertension Gastroesophageal reflux disease, esophagitis presence not specified History of removal of laparoscopic gastric banding device Body mass index (BMI) of 50-59.9 in adult Other fatigue Ordered: 11/19/2017 documented as of this encounter Visit Diagnoses Diagnosis Essential hypertension- Primary Unspecified essential hypertension Gastroesophageal reflux disease, esophagitis presence not specified History of removal of laparoscopic gastric banding device Body mass index (BMI) of 50-59.9 in adult Other fatigue documented in this encounter Care Teams Marine Engineer Cpvec Relationship Specialty Start Date End Date Jamilah Severino PA PCP - General Physician Corporate Pilot 11/24/15 documented as of this encounter
[2024-02-09] MEDS: CEFDINIR 300MG CAPSULE 300 MG PO (22:45)
--- NOTE | 2024-02-09 23:08 | HMH.EDGENADL ---
Discharge Plan Disposition Chief Complaint: Allergic Reaction Prescriptions Prescriptions: New cefdinir 300 mg capsule 300 mg PO BID 7 Days Qty: 14 0RF No Action ipratropium-albuterol 0.5 mg-3 mg(2.5 mg base)/3 mL solution for nebulization 3 ml IH QID PRN (Reason: shortness of breath or wheezing) 90 Days Qty: 360 3RF albuterol sulfate 90 mcg/actuation HFA aerosol inhaler 2 inh IH Q6H PRN (Reason: shortness of breath or wheezing) 90 Days Qty: 8.5 3RF ipratropium-albuterol 0.5 mg-3 mg(2.5 mg base)/3 mL solution for nebulization 3 ml inhalation Q6H 90 Days Qty: 360 3RF budesonide [Pulmicort] 0.5 mg/2 mL suspension for nebulization 0.5 mg inhalation BID 90 Days Qty: 360 2RF levofloxacin 500 mg tablet 500 mg PO Q24H 7 Days Qty: 7 0RF phenazopyridine [Pyridium] 200 mg tablet 200 mg PO TID PRN (Reason: pain) Qty: 6 0RF (DME) Monoject Safety Syringes 3 mL 22 gauge x 1 1/2 syringe See Rx Instructions .Route Qty: 4 0RF Rx Instructions: Use once monthly for Vit B12 injections (DME) BD Luer-Carmela Syringe 3 mL 25 gauge x 1 syringe See Rx Instructions .ROUTE .COMPLEX Qty: 100 0RF Dose Instruction: USE DIRECTED Rx Instructions: USE DIRECTED ropinirole 1 mg tablet See Rx Instructions .ROUTE .COMPLEX Qty: 30 1RF Dose Instruction: TAKE ONE TABLET BY MOUTH AT BEDTIME Rx Instructions: TAKE ONE TABLET BY MOUTH AT BEDTIME cyanocobalamin (vitamin B-12) 1,000 mcg/mL solution See Rx Instructions .ROUTE .COMPLEX Qty: 1 0RF Dose Instruction: INJECT 1 ML INTRAMUSCULARLY ONCE A MONTH Rx Instructions: INJECT 1 ML INTRAMUSCULARLY ONCE A MONTH furosemide [Lasix] 20 mg tablet 20 mg PO DAILY Qty: 30 2RF Fasenra Pen 30 mg/mL auto-injector 30 mg SQ Q4W Qty: 1 2RF Rx Instructions: 30 mg administered once every 4 weeks for the first 3 doses, and then once every 8 weeks thereafter by subcutaneous injection lisinopril-hydrochlorothiazide 20-25 mg tablet See Rx Instructions .ROUTE .COMPLEX Qty: 30 0RF Dose Instruction: TAKE 1 TABLET BY MOUTH EVERY DAY Rx Instructions: TAKE 1 TABLET BY MOUTH EVERY DAY diclofenac sodium 75 mg tablet,delayed release (DR/EC) See Rx Instructions .ROUTE .COMPLEX Qty: 30 0RF Dose Instruction: TAKE ONE TABLET BY MOUTH ONCE A DAY Rx Instructions: TAKE ONE TABLET BY MOUTH ONCE A DAY aspirin [Adult Low Dose Aspirin] 81 mg tablet,delayed release (DR/EC) 81 mg PO DAILY Referrals Follow up/Referrals: Jamilah Severino PA [Primary Care Provider] - See instructions Activity Restrictions/Add. Instructions Additional Instructions/Restrictions: Call your family doctor to establish care for this visit to the emergency department and schedule follow-up within 48 hours to ensure improvement. If you have any worsening of your condition or any other concerning signs or symptoms, return to the emergency department or your primary care doctor for further evaluation. Clinical Impressions Clinical Impression: Allergic reaction Print Language Print Language: Turkmen Discharge ED Provider: Fabio Diaz General Adult HPI General Chief complaint: Allergic Reaction Stated complaint: Allergic reactions to antibiotic,SOA Time Seen by Provider: 02/09/24 22:19 Mode of Arrival: Wheelchair Source of Information: Patient Limitations: No Limitations Description of Symptoms (Recalled from ER Triage Doc. by RN): Pt states she took Levoquin for UTI and now having itching and difficulty breathing. Pt took 2 benadryl at home PO Pt wears 2 lpm nasal cannula at home History of Present Illness HPI narrative: Please note that above description of symptoms, in this electronic medical record under categorization of recalled from ER triage doctor by RN are reflective of an initial nursing assessment, however, is not reflective of my full history and physical exam that was personally taken and clarified. Consequentially, this preceding description of symptoms, which may include the patient's categorized chief complaint in the EMR, do not reflect my personal clinical impression, and the ultimate description of history of present illness and patient stated complaints should be deferred to this section of the note. Unless stated otherwise or congruent with this section of the note, additional signs, symptoms, or incongruence should be interpreted as inaccurate with my clinical impression. Related Data Home Medications ?Medication ?Instructions ?Recorded ?Confirmed aspirin 81 mg tablet,delayed 81 mg PO DAILY . 12/08/22 09/30/23 release (Adult Low Dose Aspirin) Previous Rx's ?Medication ?Instructions ?Recorded syringe with needle, safety 3 mL #4 ea 02/13/21 22 gauge x 1 1/2 (Monoject Safety Syringes) albuterol sulfate 90 mcg/actuation 2 inh inhalation Q6H PRN shortness 09/09/22 aerosol inhaler of breath or wheezing 90 days #8.5 grams ipratropium 0.5 mg-albuterol 3 mg 3 ml inhalation QID PRN shortness 09/09/22 (2.5 mg base)/3 mL nebulization of breath or wheezing 90 days #360 soln mL syringe with needle 3 mL 25 gauge #100 ea 10/17/22 x 1 (BD Luer-Carmela Syringe) ropinirole 1 mg tablet See Rx Instructions .Route 04/08/23 .COMPLEX #30 tabs cyanocobalamin (vitamin B-12) See Rx Instructions .Route 05/12/23 1,000 mcg/mL injection solution .COMPLEX #1 mL budesonide 0.5 mg/2 mL suspension 0.5 mg (2 mL) inhalation BID 90 09/09/23 for nebulization (Pulmicort) days #360 mL ipratropium 0.5 mg-albuterol 3 mg 3 ml inhalation Q6H shortness of 09/09/23 (2.5 mg base)/3 mL nebulization breath or wheezing 90 days #360 mL soln levofloxacin 500 mg tablet 500 mg PO Q24H 7 days #7 tabs 09/30/23 phenazopyridine 200 mg tablet 200 mg PO TID PRN pain 6 doses #6 09/30/23 (Pyridium) tabs furosemide 20 mg tablet (Lasix) 20 mg PO DAILY #30 tabs 12/01/23 benralizumab 30 mg/mL subcutaneous 30 mg SQ Q4W #1 mL 12/02/23 auto-injector (Fasenra Pen) diclofenac sodium 75 mg See Rx Instructions .Route 12/16/23 tablet,delayed release .COMPLEX #30 tabs lisinopril 20 See Rx Instructions .Route 12/16/23 mg-hydrochlorothiazide 25 mg tablet .COMPLEX #30 tabs cefdinir 300 mg capsule 300 mg PO BID 7 days #14 caps 02/09/24 Allergies Allergy/AdvReac Type Severity Reaction Status Date / Time morphine (MORPHINE) Allergy Severe S-DIFF. Verified 09/30/23 11:10 BREATHING atropine (From LOMOTIL) Allergy Intermediate I-RASH Verified 09/30/23 11:10 clonidine Allergy Intermediate swelling Verified 09/30/23 11:10 codeine (CODEINE) Allergy Intermediate I-HIVES Verified 09/30/23 11:10 diphenoxylate (From LOMOTIL) Allergy Intermediate I-RASH Verified 09/30/23 11:10 celecoxib (From CELEBREX) Allergy Unknown Verified 09/30/23 11:10 meloxicam Allergy Verified 09/30/23 11:10 PFSH [facility] Disclaimer: The information contained in this section may have been updated after the patient was seen, as this information can be updated by other users. Medical History Sleep apnea Asthma Asthma-chronic obstructive pulmonary disease overlap syndrome Allergic rhinitis History of sleep apnea Nocturnal hypoxemia Elevated IgE level COPD (chronic obstructive pulmonary disease) Dyspnea on exertion Pulmonary emphysema Stopped smoking with greater than 30 pack year history Eosinophilia, unspecified Neuropathy RLS (restless legs syndrome) Insomnia Knee pain Arthritis Hypertension Surgical History History of tubal ligation History of total hysterectomy History of hernia repair History of section Hx of cholecystectomy History of arthroscopic knee surgery History of tonsillectomy Family History Other Cancer Coronary artery disease Heart attack Hyperlipidemia Social History Smoking Status: Former smoker alcohol intake: never substance use type: denies use current occupational status: other Travel in the last 8 weeks: None Other Medical History Have you received the Flu Vaccine for this season: Yes Have you received the Pneumonia Vaccine: No ROS Obtained: Yes All systems reviewed & no additional complaints except as documented Physical Exam General General appearance: alert Head Head exam: atraumatic and normocephalic Eye Eye exam: Present normal appearance, PERRL and EOMI Neck Neck exam: Present normal inspection, full ROM and trachea midline Respiratory Respiratory exam: Absent respiratory distress, wheezes, stridor, accessory muscle use or prolonged expiratory phase Cardiovascular Cardiovascular exam: Present other (Pulses equal symmetric in upper and lower extremities) Abdominal Exam Abdominal exam: Present soft; Absent distention, tenderness or pulsatile mass Extremities Exam Extremities exam: Absent edema Neurological Exam Neurological exam: Present alert, oriented X3 and CN II-XII intact; Absent motor sensory deficit Skin Skin exam: Present warm and dry; Absent diaphoresis or erythema Medical Decision Making Medical Records Medical records reviewed: Yes I reviewed the patient's medical records. Screening: Per USPSTF and CDC recommendations, given the prevalence of disease in our region, it is our hospital?s policy to screen for HIV and viral Hepatitis for all patients aged 18 and over and those with ongoing risk factors. Obed Inquiry Pt receiving controlled substance: No Obed was queried for this patient: No Vital Signs: 02/09/24 21:41 Temperature 98.4 F Temperature Source Oral Pulse Rate [Right Brachial] 120 H Respiratory Rate 20 Blood Pressure [Right Arm] 148/76 H Blood Pressure Mean [Right Arm] 100 Blood Pressure Source [Right Arm] Automatic Cuff Blood Pressure Position [Right Arm] Sitting 02 Sat by Pulse Oximetry 93 L Oxygen Delivery Method Room Air Orders (Tests/Meds): ED MEDICATIONS Discontinued Medications Generic Name Dose Route Start Last Admin Trade Name Freq PRN Reason Stop Dose Admin Cefdinir 300 mg 02/09/24 22:28 02/09/24 22:45 Cefdinir 300mg Capsule PO 02/09/24 22:29 300 mg ONCE ONE Administration ORDERS Category Date Time Status HIV (1&2) Antibody Rapid Stat Lab 02/09/24 21:44 Ordered Hep C Ab with Reflex to RNA Stat Lab 02/09/24 21:44 Ordered Medical Decision Narrative: 63-year-old female presenting with concern for allergic reaction. Patient states that she has a urinary tract infection, had Levaquin prescribed today. She has had 1 time in the past. About 45 minutes after taking the Levaquin, she had wheezing, diffuse redness, cough, tongue tingling. Took 2 Benadryl, came in for further evaluation. On arrival, both her and her state that she looks better. History obtained with patient's and patient. On my evaluation, patient has no findings consistent with anaphylaxis other than mild tachycardia. Patient given first dose of Omnicef here, repeat urinalysis was not deemed necessary at this time. Patient given Omnicef, no reaction, deemed appropriate for discharge home on this. Because patient at baseline without signs or symptoms of clinical decompensation, deemed appropriate for discharge. Results were relayed to patient who voiced understanding and were agreeable to outpatient management and follow up. I discussed my clinical impression with patient and answered all questions. At this time, the evidence for any other entities in the differential is insufficient to warrant any further testing or ED observation. This was explained as well. Advisory was given that persistent or worsening symptoms require further evaluation. I confirmed the understanding of this discussion. Dog Barber disclaimer Much of this encounter note is an electronic process improvement engineer spoken language to printed text. Electronic process improvement engineer of the spoken language may permit errors. Although I have reviewed the note, some errors may still exist. Critical Care Critical Care Time Critical Care Time: No
[2024-02-09 23:31] VITALS: BP 154/95; PULSE 130; RESP 24; TEMP 36.9
== END 2024-02-09 23:31 | disposition home or self-care (01) ==
PROVIDERS: Emergency Provider Emergency Medicine; PCP Physician Assistant
DX: T78.40XA Allergy, unspecified, initial encounter (principal); R06.2 Wheezing; L29.9 Pruritus, unspecified; R05.9 Cough, unspecified
CPT/HCPCS: 99283

== ENCOUNTER 2024-07-12 12:39 | Outpatient (CLI) | payer OTHER, SELFPAY ==
--- NOTE | 2024-07-12 12:43 | XR_ITS ---
FINAL REPORT CLINICAL HISTORY: SOB, cough former smoker COPD COMPARISON: 11/18/2021 FINDINGS: PA and lateral views of the chest were obtained. The cardiac and mediastinal silhouettes are within normal limits. There is right infrahilar opacity which could be atelectasis or pneumonia. The lungs are otherwise clear. There is no pleural effusion or pneumothorax. No acute osseous abnormality is identified. IMPRESSION: Right infrahilar opacity could represent atelectasis or pneumonia. Recommend follow-up to resolution. Reviewed, Interpreted and Dictated by Ena Stephens MD Transcribed by Blanca Benton Authenticated and [facility]
== END 2024-07-12 23:59 | disposition home or self-care (01) ==
LOC: RAD 12:40
PROVIDERS: PCP Physician Assistant; Visit Provider Internal Medicine Pulmonary Disease
DX: R06.02 Shortness of breath (principal)
CPT/HCPCS: 71046

== ENCOUNTER 2024-08-04 14:35 | Outpatient (CLI) | payer OTHER, SELFPAY | END 2024-08-04 23:59 | disposition home or self-care (01) | LOC: RT 14:36 | PROVIDERS: PCP Physician Assistant; Visit Provider Nurse Practitioner Family | DX: I49.1 Atrial premature depolarization (principal); I47.19 Other supraventricular tachycardia; I49.3 Ventricular premature depolarization; R42 Dizziness and giddiness | CPT/HCPCS: 93270 ==

== ENCOUNTER 2024-08-26 14:54 | Outpatient (CLI) | payer OTHER, SELFPAY ==
--- NOTE | 2024-08-26 15:15 | CA_ITS ---
APPROVED REPORT EXAM: Comprehensive 2D, Doppler, and color-flow Echocardiogram Auto Body Mechanic Apprentice: Christiana Butterfield RT(R) Ht: 5 ft 5 in Wt: 351lbs BSA: 2.51 BP: 154/71 mmHg Indications: Shortness of air, COPD, hypertension, edema, congestive heart failure. 2D Dimensions EF AP4 71.80 % GL Strain -22.6 % M-Mode Dimensions RVDd 2.84 cm (0.9-2.6) LA Diam 3.01 cm (1.9-4.0) LVDd 5.04 cm (3.5-5.7) LVDs 3.72 cm (3.5-5.7) IVSd 1.03 cm (0.6-1.1) PWd 0.88 cm (0.6-1.1) EF (Teich) 51.10% FS 26.20% EDV (Teich) 120.50 mL ESV (Teich) 58.90 mL LV Diastology E Decel Time 217 (160-240 msec) E/A Ratio 0.7 Mitral Valve MV E Max Kwasi. 49.0 (40-130 cm/s) MV A Velocity 72.0 (40-130 cm/s) E/A Ratio 0.68 MV PHT 63.0 ms Left Ventricle The left ventricle is normal size. The left ventricular systolic function is normal. The left ventricular ejection fraction is within the normal range. There is increased LV wall thickness. There is normal LV segmental wall motion. Transmitral Doppler flow pattern suggests impaired LV relaxation. LVEF is 55%. Right Ventricle Right ventricle is mildly dilated. The right ventricular systolic function is normal. Atria The left atrium size is normal. The right atrium size is normal. There is no Doppler evidence of interatrial shunt. Aortic Valve The aortic valve is mildly thickened. There is no aortic valvular stenosis. No aortic regurgitation is present. Mitral Valve The mitral valve is normal in structure. No evidence of mitral valve stenosis. Trace mitral regurgitation. Tricuspid Valve Tricuspid valve is grossly normal in structure and function. Trace tricuspid regurgitation. There is insufficient TR jet to estimate RVSP. Pulmonic Valve The pulmonary valve is normal in structure. Trace pulmonic regurgitation. Great Vessels The aortic root is normal in size. IVC is normal in size and collapses >50% with inspiration. Pericardium There is no pericardial effusion. Other Information Study Quality: Fair Conclusion Normal biventricular systolic function. Mild RV dilation. No significant valvular stenosis or regurgitation. Electronically signed by : Marla Villela MD 09/01/2024 23:56:50
== END 2024-08-26 23:59 | disposition home or self-care (01) ==
LOC: RT 14:54
PROVIDERS: PCP Physician Assistant; Visit Provider Nurse Practitioner Family
DX: I11.0 Hypertensive heart disease with heart failure (principal); I50.9 Heart failure, unspecified; J44.9 Chronic obstructive pulmonary disease, unspecified
CPT/HCPCS: 93306

== ENCOUNTER 2024-09-08 09:57 | Outpatient (CLI) | payer OTHER, SELFPAY ==
--- NOTE | 2024-09-08 | CA_ITS ---
APPROVED REPORT Exam: Pharmacologic Technologist: Mayra Costa Ht: 5 ft 6 in Wt: 348 lbs BSA: 2.53 m2 Medical History Medications: albuterol, aspirin, budesonide, diclofenac sodium, lasix, lisinopril-hctz, montekulast. Stress Test Details Test: Lexiscan Reason for pharmacologic stress test: physical limitation. HR Resting HR: 83 bpm Max Heart Rate (APMHR): 156 bpm Max HR Achieved: 97 bpm Target HR (85% APMHR): 133 bpm % of APMHR: 62 Recovery HR: 91 bpm BP Resting BP: 142.0/88.0 mmHg Max BP: 151.0/73.0 mmHg Recovery BP: 133.0/70.0 mmHg ECG Stress ECG Conclusion Symptoms: SOB with Lexiscan and nausea. Arrhythmias/Ectopy: None. ST-T Changes: unremarkable with Lexiscan. Electronically signed by : Marla Villela MD 09/10/2024 15:38:33
--- OUTSIDE RECORDS SUMMARY | 2024-09-08 10:05 | XMS_ITS | Data Portability ---
Author Organization [employer] [facility] Address [address] [place] [address] Assessment No assessment recorded. Plan of Treatment Reminders Order Date Submit Date Provider Last Modified By Organization Details Last Modified Time Details Appointments None recorded. Lab None recorded. Referral None recorded. Procedures None recorded. Surgeries None recorded. Imaging None recorded. Medication Orders Mirapex ER 0.375 mg tablet,exte nded release 2024 025 [facility], [address] [place] [address], [id number], 5 11:20:29 Horizant ER 600 mg tablet,exte nded release 2024 025 [facility], [address] [place] [address], [id number], 5 13:08:14 Breztri Aerosphere 160 mcg-9mcg-4. 8mcg/actuat ion HFA aerosol inhaler 2024 025 [facility], [address] [place] [address], [id number], 5 16:37:38 doxycycline monohydrate 100 mg tablet 2023 024 [facility], [address] [place] [address], [id number], 4 15:27:16 prednisone 20 mg tablet 2023 025 [facility], [address] [place] [address] [place], [id number], 5 10:33:42 Mucinex 1,200 mg tablet, extended release 2023 024 [facility], [address] [place] [address] [place], [id number], 4 15:27:22 promethazin e-DM 6.25 mg-15 mg/5 mL oral syrup 2023 025 [facility], [address] [place] [address] [place], [id number], 5 10:33:49 ceftriaxone 1 gram solution for injection 2023 024 [email or web address] Not available 5 10:27:19 dexamethaso ne sodium phosphate 4 mg/mL injection solution 2023 024 [email or web address] Not available 5 10:27:37 Depo-Medrol 80 mg/mL suspension for injection 2023 024 [email or web address] Not available 5 10:27:28 furosemide 20 mg tablet 2023 024 [facility], [address] [place] [address] [place], [id number], 4 15:27:28 fluticasone propionate 50 mcg/actuati on nasal spray,suspe nsion 2023 024 [facility], [address] [place] [address], [place], [id number], 4 10:45:12 diclofenac sodium 75 mg tablet,andry yed release 2023 [facility], [facility] [place] [address] [address], [place], [id number], 4 10:39:03 tramadol 50 mg tablet 2023 [facility], [address] [place] [address], [place], [id number], 4 15:19:45 famotidine 20 mg tablet 2023 [facility], [address] [place] [address], [place], [id number], 4 10:38:55 budesonide 0.5 mg/2 mL suspension for nebulizatio n 2023 [facility], [address] [place] [address] S, [place], [id number], 4 10:39:04 ipratropium 0.5 mg-albutero l 3 mg (2.5 mg base)/3 mL nebulizatio n soln 2023 [facility], [address] [place] [address], [place], [id number], 10:45:03 Spiriva with HandiHaler 18 mcg and inhalation capsules 2023 [facility], [address] [place] [address] S, [place], [id number], 4 10:45:06 ropinirole 1 mg tablet 2023 [facility], [address] [place] [address], [place], [id number], 10:45:00 aspirin 81 mg tablet,andry dukes release 2023 [facility], [facility] [place] [address] [address], [place], [id number], 10:39:03 lisinopril 20 mg-hydrochl orothiazide 25 mg tablet 2023 [facility], [address] [facility] [address], [place], [id number], 10:45:09 furosemide 20 mg tablet 2023 [facility], [facility] [address], [place], [id number], 10:45:00 Patient TargetsNo targets recorded. Patient Instructions Encounter Date Encounter Id Patient Instructions Last Modified By Organization Details Last Modified Time 01/08/2024 [id number] allergies: care instructions [email or web address] Not available 01/08/2024 10:38:19 03/19/2024 [id number] heart failure: care instructions [email or web address] Not available 03/19/2024 15:25:37 learning about heart failure [email or web address] Not available 03/19/2024 15:25:37 RTC if not improving. To ER if declines. [email or web address] Not available 03/19/2024 15:58:52 04/08/2024 [id number] restless legs syndrome: care instructions [email or web address] Not available 04/08/2024 11:20:25 Reason for Referral None Reported. Results Created Date Observation Date Name Description Value Unit Range Abnormal Flag Note LastModifiedBy Organization Detail LastModifiedTime 03/19/20 24 08/19/2023 MAMMO , scree emilia, bilat eral No observ ation record ed. [email or web address] [facility] [address], [place], [id number], 04/08/2024 16:31:45 Result Notes None recorded. Problems Name Problem SNOMED Code Status Onset Date Resolution Date Notes Provider Name and Address Organization Details Recorded Time Chronic obstruct gary pulmonar y disease 92961923 Active 2023 HEBER Mcqueen [address] [place] [address], [phone], [employer] 11:20:38 Morbid obesity 879249360 Active 2023 HEBER Mcqueen [address] [place] [address], [address], [employer] 11:20:42 Congesti ve heart failure 47792883 Active 2023 HEBER Mcqueen [address] [place] [address], [address], [employer] 11:20:35 Restless legs 52194578 Active 2023 HEBER Mcqueen [address] [place] [address], [address], [employer] 11:20:41 Gastroes ophageal reflux disease 528632584 Active 2023 HEBER Mcqueen [address] [place] [address], [address], [employer] 11:20:44 [facility] hyperten mere 48481791 Active 2023 HEBER Mcqueen [address] [place] [address], [address], [employer] 5 11:20:34 Degenera tion of lumbar interver tebral disc 24644572 Active 2023 HEBER Mcqueen [address] [place] [address], [address], [employer] 5 11:20:46 Allergic rhinitis 25878345 Active 2023 HEBER Mcqueen [address] [place] [address], [address], [employer] 5 11:20:31 Acute urinary tract infectio n 472335047 Completed 202304/08/2024 Removal Reason: resolved HEBER Mcqueen [address] [facility], [place], [address], [employer] 5 11:21:01 Acute exacerba tion of chronic obstruct gary pulmonar y disease 441606440 Completed 202304/08/2024 Removal Reason: resolved HEBER Mcqueen [address] [facility], [place], [address], [employer] 11:20:55 Problem Notes None recorded. Procedures Surgical History Date Name Laterality Status Provider Name and Address Organization Details Recorded Time 07/23/19 Most Recent Mammogram completed [facility] 03/19/2024 15:22:11 Caesarean Section completed [employer] 01/08/2024 10:04:49 Hernia Repair completed [facility] 01/08/2024 10:04:49 Joint Replacement completed [employer] 01/08/2024 10:17:04 Tonsillectomy completed [facility] 01/08/2024 10:04:49 Tubal Ligation completed [employer] 01/08/2024 10:04:49 Gallbladder Surgery completed [employer] 01/08/2024 10:04:49 Partial Hysterectomy completed [facility] 01/08/2024 10:04:49 Imaging Results None recorded. Procedure Notes None recorded. Medical Equipment None Reported. Allergies Allergen ID Allergen Name Allergen Category Reaction Reaction Severity Criticality Documentation Date Start Date Code Code System Note Provider Name and Address Organization Details Recorded Time 19877 morphine medicatio n Not available Not available Not available 01/08/2024 7052 RxNorm [employer], [employer] 10:05:33 43209 Celebrex medicatio n Not available Not available Not available 01/08/2024 79909 7 RxNorm Bambi Vice null, [employer] 4 10:05:41 35974 codeine medicatio n Not available Not available Not available 01/08/2024 2670 RxNorm [employer] Vice null, [employer] 4 10:05:46 86019 Lomotil medicatio n Not available Not available Not available 01/08/2024 48824 RxNorm Bambi Vice null, [employer] 4 10:06:54 41878 meloxicam medicatio n Not available Not available Not available 01/08/2024 38312 RxNorm Bambi Vice null, [employer] 4 10:07:00 66577 clonidine medicatio n Not available Not available Not available 01/08/2024 2599 RxNorm Bambi Vice null, [employer] 4 10:07:07 22176 levofloxa corinne medicatio n Not available Not available Not available 03/19/2024 14635 RxNorm Bambi Vice null, [employer] 4 15:15:33 Medications Name Sig Start Date Stop Date Status Note LastModified by Organization Details LastModified Time fluconazole 100 mg tablet 01/07 completed Not Available Not Available Not Available promethazin e-DM 6.25 mg-15 mg/5 mL oral syrup Take 5 mL every 4 hours by oral route as needed for 10 days, for cough. 04/08 completed Not Available Not Available Not Available [...] Available Not Available prednisone 20 mg tablet Take 1 tablet every day by oral route as directed for 9 days. 04/08 completed Not Available Not Available Not Available aspirin 81 mg tablet,andry yed release Take 1 tablet every day by oral route as directed for 90 days, for blood thinner. active Not Available Not Available No t Available doxycycline monohydrate 100 mg tablet Take 1 tablet twice a day by oral route as directed for 10 days. 2023 active Not Available Not Available Not Avai lable tramadol 50 mg tablet Take 1 tablet every 8 hours by oral route as directed for 30 days, for back pain. 03/19 completed Not Available Not Available Not Available spironolact one 25 mg tablet 01/07 completed Not Available Not Available Not Available Depo-Medrol 80 mg/mL suspension for injection Take 1 mL by injection route. 04/08 completed Not Available Not Available Not Available ceftriaxone 1 gram solution for injection Take 1 g every day by injection route. 04/08 completed Not Available Not Available Not Available [...] TAKE 1 TABLET BY MOUTH EVERY DAY active Not Available Not Available No t Available diclofenac sodium 75 mg tablet,andry yed release TAKE ONE TABLET BY MOUTH ONCE A DAY active Not Available Not Available No t Available montelukast 10 mg tablet 01/07 completed Not Available Not Available Not Available furosemide 20 mg tablet TAKE ONE TABLET BY MOUTH 2 TIMES A DAY FOR FLUID/SWE LLING 2024 active Not Available Not Available Not Avai lable dexamethaso ne sodium phosphate 4 mg/mL injection solution Inject 1 mL every day by intramusc ular route. 04/08 completed Not Available Not Available Not Available levofloxaci n 500 mg tablet Take 1 tablet every 24 hours by oral route as directed for 7 days, for uti. 03/19 completed Not Available Not Available Not Available methylpredn isolone 4 mg tablets in a dose pack 01/07 completed Not Available Not Available Not Available cefdinir 300 mg capsule 03/19 completed Not Available Not Available Not Available fluticasone propionate 50 mcg/actuati on nasal spray,suspe nsion [place] 1 spray every day by intranasa l [...] completed Not Available Not Available Not Available Mucinex 1,200 mg tablet, extended release Take 1 tablet twice a day by oral route as directed for 10 days. 2023 active Not Available Not Available Not Avai lable Mirapex ER 0.375 mg tablet,exte nded release Take 1 tablet every day by oral route at bedtime for 90 days. 2024 active Not Available Not Available Not Avai lable Horizant ER 600 mg tablet,exte nded release Take 1 tablet every day by oral route at dinner for 30 days, for restless legs. 2024 active Not Available Not Available Not Avai lable Nucala 100 mg/mL subcutaneou s auto-inject or inject 100mg (THE contents of ONE pen) SUBCUTANE OUSLY EVERY FOUR WEEKS. 01/07 completed Not Available Not Available Not Available Breztri Aerosphere 160 mcg-9mcg-4. 8mcg/actuat ion HFA aerosol inhaler Inhale 2 puffs twice a day by inhalatio n route as directed for 30 days. 2024 active Not Available Not Available Not Avai lable aspirin 81 mg capsule Take 1 capsule every day by oral route. 03/19 completed Not Available Not Available Not Available Vitals Date Recorded Body height Body mass index (BMI) Body weight Oxygen saturation Oxygen saturation in Arterial blood by Pulse oximetry Inhaled oxygen flow rate Heart rate Systolic blood pressure Diastolic blood pressure Provider Name and Address Organization Details Last Updated DateTime 5 165.1 cm 59.6 kg/m2 161256. 47 g 96 % 96 % 2 L/min 93 /min 118 mm[Hg] 72 mm[Hg] Chaya Manjarrez [employer] 5 10:30:25 Date Recorded Body weight Body mass index (BMI) Body height Heart rate Oxygen saturation Oxygen saturation in Arterial blood by Pulse oximetry Inhaled oxygen flow rate Systolic blood pressure Diastolic blood pressure Provider Name and Address Organization Details Last Updated DateTime 4 609050. 9 g 61.6 kg/m2 165.1 cm 78 /min 98 % 98 % 3 L/min 118 mm[Hg] 81 mm[Hg] Bambi [employer] 4 10:08:12 Date Recorded Body height Body mass index (BMI) Body weight Body temperature Heart rate Oxygen saturation Oxygen saturation in Arterial blood by Pulse oximetry Inhaled oxygen flow rate Systolic blood pressure Diastolic blood pressure Provider Name and Address Organization Details Last Updated DateTime 4 165.1 cm 60.2 kg/m2 054077. 72 g 98.2 [degF] 86 /min 96 % 96 % 3 L/min 103 mm[Hg] 73 mm[Hg] [employer] 4 15:14:24 Social History Question Answer Notes LastModified by Organizat ion Details LastModified Time Tobacco Smoking Status Former Smoker [email or web address]. 01/08/2024 10:04:49 Do You Have An Advance Directive? No Information n ot available 01/08/2024 Is Your Home Air Conditioned? Yes Information not available 01/08/2024 If You Are , What Was Your Level Of Alcohol Consumption Prior To ? None Information not available 01/08/2024 Do You Wear A Helmet When Biking? No Information not available 01/08/2024 Are You Blind Or Do You Have Difficulty Seeing? No Information n ot available 01/08/2024 What Is Your Level Of Caffeine Consumption? Moderate Information not available 01/08/2024 What Type Of Tandem Mill Roller Do You Use? None Information not available [...] Do You Have A Medical Power Of [place]inkle [place]aser? No Information not available 01/08/2024 What Was The Date Of Your Most Recent Tobacco Screening? 04/08/2024 [email or web address] Information not available 04/08/2024 Do You Have Any Pets? Yes Information [...] No Information not available 01/08/2024 Do You Participate In Social Media? Yes Information not available 03/19/2024 Do You Use Sunscreen Routinely? No Information not available 01/08/2024 Has Tobacco Cessation Counseling Been Provided? No Information not available 01/08/2024 How Many Years Have You Smoked Tobacco? 13 Information not available 01/08/2024 Have You Recently Traveled Abroad? No Information not available 01/08/2024 Do You Have Difficulty Walking Or Climbing Stairs? Yes Information not available 01/08/2024 Are You Currently In School? No Information not available 01/08/2024 Do You Have Any Dietary Restrictions? No Information not available 01/08/2024 Sex: Female Functional Status Question Answer Note LastModified by Organizat ion Details LastModified Time Do you use any illicit or recreational drugs? No Information not available 01/08/2024 Do you or have you ever used any other forms of tobacco or nicotine? No Information not available 01/08/2024 What is your level of alcohol consumption? None Information not available 01/08/2024 Are you currently employed? No Information not available 01/08/2024 Do you have [...] Mental Status Question Answer Note LastModified by Organizat ion Details LastModified Time Do you feel stressed (tense, restless, nervous, or anxious, or unable to sleep at night)? [id number] Information not available 03/19/2024 Do you have difficulty concentrating, remembering or making decisions? No Information no t available 01/08/2024 Are you or have you been involved with bullying? No Information not available 01/08/2024 Family History Relationship Description Onset Age of this Age Resolved Age Notes LastModified by Organization Details LastModified Time Father Heart disease Not available 2023 10:04:48 Medical History Condition Response Allergies (Food, seasonal, environmental ) Y Coronary Artery Disease N Other N Gout N Kidney Stones N Blood Diseases N Hyperthyroidism N Breast Cancer N Blood Transfusion N Emergency room visit since last appointm ent. N Hypothyroidism N Lung Disease Y COPD Y Dermatologic Disorders N Depression N Defects or Inherited Disease N Developmental [...] Psychiatric/Mental Health Condition N Organ Transplant N Headaches N Schizophrenia N Fibromyalgia N Dialysis N Kidney Disease N Allergies/Hayfever N Heart Problems N Ear or Hearing Problems N Hospitalizations N Learning Disorder N Artificial Joints Y Thyroid Problems N GI Problems N Acne N ADD/ADHD N Eating Disorder N Anemia N Constipation N Mental Illness N Ovarian Cancer N Diabetes N Bedwetting N Hepatitis/Liver Disease N Tuberculosis N Eczema N Diverticulitis N Abuse/Domestic Violence N Asthma Y Trauma/Violence N Substance Abuse N Reflux/GERD N Depression/ depression N Hepatitis N Heart Disease N Pulmonary Embolism N Tourette Syndrome N Pre-Eclampsia N Hypertension Y Chronic Ear Infections N Osteoporosis N Chicken Pox N Autism Spectrum Disorder (ASD) N Thrombophilias N Gynecological History Statement/Question Response If Post Menopausal, Age at Menopause 36 Menses Monthly N HPV Vaccine N Date of Last Pap Smear Current Control Method Menopause Most Recent Mammogram 07/23/2023 Age at First Child 16 Obstetrics History GPAL:G 0 P 0 0 0 0 Immunizations Vaccine Type Date Status Note Provider Nam e and Address Organization Details Recorded Time Influenza, split virus, trivalent, PF 01/08/2024 completed HEBER Mcqueen [address] [place] [address], [phone], [employer] 01/08/2024 15:02:31 Influenza, MDCK, quadrivalent, PF 12/18/2018 completed Bambi Vice null, [employer] 03/19/2024 15:14:33 MMR 11/27/2021 completed Bambi Vice null, [employer] 03/19/2024 15:14:33 COVID-19, mRNA, LNP-S, PF, 100 mcg/0.5mL dose or 50 mcg/0.25mL dose 03/29/2020 completed Bambi Vice null, [employer] 03/19/2024 15:14:33 COVID-19, mRNA, LNP-S, PF, 100 mcg/0.5mL dose or 50 mcg/0.25mL dose 04/27/2020 completed Bambi Vice null, [employer] 03/19/2024 15:14:33 COVID-19, mRNA, LNP-S, PF, 100 mcg/0.5mL dose or 50 mcg/0.25mL dose 02/01/2021 completed Bambi Vice null, [employer] 03/19/2024 15:14:33 Hep B, adult 07/16/2005 completed Bambi Vice null, [employer] 03/19/2024 15:14:33 Hep B, adult 01/07/2005 completed Bambi Vice null, [employer] 03/19/2024 15:14:33 Hep B, adult 02/21/2005 completed Bambi Vice null, [employer] 03/19/2024 15:14:33 Hep A, adult 06/16/2019 completed Bambi Vice null, [employer] 03/19/2024 15:14:33 Hep A, adult 12/26/2017 completed Bambi Vice null, [employer] 03/19/2024 15:14:33 Influenza, split virus, quadrivalent, PF 03/30/2018 completed Bambi Vice null, [employer] 03/19/2024 15:14:33 Influenza, split virus, quadrivalent, PF 12/10/2021 completed Bambi Vice null, [employer] 03/19/2024 15:14:33 Influenza, split virus, quadrivalent, PF 12/16/2020 completed Bambi Vice null, [employer] 03/19/2024 15:14:33 Influenza, split virus, quadrivalent, PF 12/21/2019 completed Bambi Vice null, [employer] 03/19/2024 15:14:33 Past Encounters Encounter ID Performer Location Encounter Start Date Encounter Closed Date Diagnosis/Indication Diagnosis SNOMED-CT Code Diagnosis ICD10 Code Diagnosis Note [id number] HEBER Mcqueen [address] [address] 01/08/2024 09:56:00 01/08/2024 11:05:13 Chronic obstructive pulmonary disease 08438229 J44.9 Dependence on supplemental oxygen 6744586302 07 Z99.81 Morbid obesity 716839639 E66.01 Gastroesop hageal reflux disease 343231073 K21.9 Congestive heart failure 75765502 I50.9 Restless legs 66325151 G 25.81 Essential hypertension 89618363 I10 Degenerati on of lumbar intervertebral disc 23066511 M51.369 Allergic rhinitis 113566 04 J30.9 Administra tion of influenza vaccine 27587178 Z23 [id number] HEBER Mcqueen [address] [address] 03/19/2024 15:03:28 03/19/2024 15:51:14 Acute exacerbation of chronic obstructive pulmonary disease 789686726 J44.1 Congestive heart failure 37410778 I50.9 [id number] HEBER Mcqueen [address] [place] [address] 04/08/2024 10:22:18 04/08/2024 11:30:02 Restless legs 15298536 G25.81 Congestive heart failure 31383985 I50.9 Morbid obesity 594819419 E66.01 Chronic ob structive pulmonary disease 35458811 J44.9 Health Concerns Section Related Observation LastModified by Organization Detai ls LastModified Time None Recorded Concern Status LastModified by Organization Details LastModified Time None Recorded Advance Directives Directive N: Payers Insurance Date Sequence Insurance Name Policy Number Policy White Covered Member ID White Member ID Guarantor Name 04/07/2024 1 IBA Roseanne Maharaj [id number] Roseanne Maharaj 04/16/2024 SLIDING FEE SCHEDULE - DISCOUNT Roseanne Maharaj 03/22/2024 1 [employer] - [place] [employer] (EPO) Roseanne Maharaj [id number] Roseanne Maharaj 03/19/2024 1 [employer]BA - MULTIPLAN (PPO) Roseanne Maharaj [id number] Roseanne Maharaj Notes Date Note Type Note [...] may help with the pain. HEBER Mcqueen [address] [place], [address], [employer] 01/08/2024 15:10:01 03/19/2024 text/html Ear pain, sinus pain and pressure, congestion, cough X 4 days. Low grade fever. O2 dependent - worsening shortness of breath. Retaining fluid despite Lasix. No vomiting or diarrhea. HEBER Mcqueen [address] [place], [address], [employer] 03/19/2024 16:32:39 04/08/2024 text/html Patient presents for followup. Was incredibly ill just after [place]. Feeling mostly better but still some SOA.States she feels queasy evrey single morning. Takes Requ[facility]. HEBER Mcqueen [address] [place] [address], [phone], [employer] 04/08/2024 16:37:55 OBGyn Episode No OBEpisode recorded.
[2024-09-08 10:15] VITALS: PULSE 81; PULSE 83
[2024-09-08] MEDS: ALBUTEROL 0.083% 2.5 MG/3 ML NEB IH (10:15)
--- NOTE | 2024-09-08 12:30 | NM_ITS ---
APPROVED REPORT Exam: Nuclear Stress Test Indication: soa..fatigue Patient Location: Outpatient Stress Tech: Mayra Cox [place] Tech:Samaria Caro, ARRT, RT (R)(N) Ht: 5 ft 5 in Wt: 348 lbs Bra Size: 54d HR: 83 bpm BP: 142/88 mmHg BSA: 2.50 m2 TID: 1.10 BMI: 57.9 History: soa..fatigue Procedure: Patient received 0.4 mg of intravenous Lexiscan, resting heart rate 83 bpm, resting blood pressure 142/88 mmHg, with Lexiscan maximum heart rate achieved was 103 bpm which is 85 % of the maximum predicted heart rate and blood pressure was 151/73 mmHg. With Lexiscan, patient denied any complaint of chest pain. The patient was not able to lay on her abdomen for prone images. Cardiac Stress and Resting SPECT Images: Cardiac Stress and Resting SPECT images were obtained using technetium 99m Myoview 32.7 mCi stress and 10.98 mCi at rest. The patient is unable to lie on her abdomen. Therefore, prone stress imaging cannot be performed. This may affect the diagnostic interpretation of the study findings. Resting and stress imaging in supine positions demonstrate no evidence of fixed or reversible perfusion defects. Gated imaging demonstrates normal global and regional LV systolic function. LVEF is calculated at 68%. Conclusion: No evidence of fixed or reversible perfusion defects. Gated imaging demonstrates normal global and regional LV systolic function. LVEF is calculated at 68%. Electronically signed by : Marla Villela MD 09/09/2024 13:28:00
[2024-09-08] MEDS: REGADENOSON 0.4MG/5ML SYRINGE 0.4 MG IV (13:44)
[2024-09-08] MEDS: ISOTOPE MYOVIEW (PER STUDY) 1 DOSE IV (13:44)
[2024-09-08] MEDS: SODIUM CHLORIDE 0.9% 10ML SYR (RAD ONLY) 10 ML IV ×2 (13:44)
== END 2024-09-08 23:59 | disposition home or self-care (01) ==
LOC: RT 09:57
PROVIDERS: PCP Physician Assistant; Visit Provider Internal Medicine Pulmonary Disease
DX: J44.9 Chronic obstructive pulmonary disease, unspecified (principal); R94.2 Abnormal results of pulmonary function studies
CPT/HCPCS: 78452; 93017; 93018; 94010; 94618; 94640; A9502; J2785

== ENCOUNTER 2024-10-06 00:07 | Emergency (ER) | payer OTHER, SELFPAY ==
[2024-10-06] VITALS (7 sets, daily range): BP systolic 118–129; BP diastolic 76–87; PULSE 92–109; RESP 16–23; TEMP 36.6–36.8; O2SAT 93–98; BMI 57.7
--- OUTSIDE RECORDS SUMMARY | 2024-10-06 00:18 | XMS_ITS | Data Portability ---
Author Organization [facility] Address [address] [place] [address] Assessment No assessment recorded. Plan of Treatment Reminders Order Date Submit Date Provider Last Modified By Organization Details Last Modified Time Details Appointments None recorded. Lab None recorded. Referral None recorded. Procedures None recorded. Surgeries None recorded. Imaging None recorded. Medication Orders Mirapex ER 0.375 mg tablet,exte nded release 2024 025 [facility], [address] [place] [address], [id number], 5 11:20:29 Horizant ER 600 mg tablet,exte nded release 2024 025 [facility], [address] [place] [address], [id number], 5 13:08:14 Breztri Aerosphere 160 mcg-9mcg-4. 8mcg/actuat ion HFA aerosol inhaler 2024 025 [facility], [address] [place] [address], [id number], 5 16:37:38 doxycycline monohydrate 100 mg tablet 2023 024 [facility], [address] [place] [address], [id number], 4 15:27:16 prednisone 20 mg tablet 2023 025 [facility], [address] [place] [address], [place], [id number], 5 10:33:42 Mucinex 1,200 mg tablet, extended release 2023 024 [facility], [address] [place] [address] [place], [id number], 4 15:27:22 promethazin e-DM 6.25 mg-15 mg/5 mL oral syrup 2023 025 [facility], [address] [place] [address] [place], [id number], 5 10:33:49 ceftriaxone 1 gram solution for injection 2023 024 [email or web address] Not available 5 10:27:19 dexamethaso ne sodium phosphate 4 mg/mL injection solution 2023 024 Not available 5 10:27:37 Depo-Medrol 80 mg/mL suspension for injection 2023 [email or web address] Not available 5 10:27:28 furosemide 20 mg tablet 2023 024 [facility], [address] [place] [address] [place], [id number], 4 15:27:28 fluticasone propionate 50 mcg/actuati on nasal spray,suspe nsion 2023 024 [facility], [address] [place] [address] [place], [id number], 4 10:45:12 diclofenac sodium 75 mg tablet,andry yed release 2023 [facility], [address] [place] [address], [place], [id number], 4 10:39:03 tramadol 50 mg tablet 2023 [facility], [address] [place] [address], [id number], 15:19:45 famotidine 20 mg tablet 2023 [facility], [address] [place] [address], [id number], 10:38:55 budesonide 0.5 mg/2 mL suspension for nebulizatio n 2023 [facility], [address] [place] [address], [place], [place], [id number], 10:39:04 ipratropium 0.5 mg-albutero l 3 mg (2.5 mg base)/3 mL nebulizatio n soln 2023 [facility], [address] [place] [address], [id number], 10:45:03 Spiriva with HandiHaler 18 mcg and inhalation capsules 2023 [facility], [address] [place] [address], [id number], 4 10:45:06 ropinirole 1 mg tablet 2023 [facility], [address] [place] [address], [id number], 10:45:00 aspirin 81 mg tablet,andry montagued release 2023 [facility], [address] [place] [address] [place], SHARON Aval[place], [id number], 10:39:03 lisinopril 20 mg-hydrochl orothiazide 25 mg tablet 2023 [facility], [address] [place] [address] S, [place]AR[place] Avalos, [id number], 10:45:09 furosemide 20 mg tablet 2023 [facility], [address] [place], [place] [address], [id number], 10:45:00 Patient TargetsNo targets recorded. Patient Instructions Encounter Date Encounter Id Patient Instructions Last Modified By Organization Details Last Modified Time 01/08/2024 [id number] allergies: care instructions [email or web address] Not available 01/08/2024 10:38:19 03/19/2024 [id number] heart failure: care instructions [email or web address] Not available 03/19/2024 15:25:37 learning about heart failure [email or web address] Not available 03/19/2024 15:25:37 RTC if not improving. To ER if declines. [email or web address] Not available 03/19/2024 15:58:52 04/08/2024 [id number] restless legs syndrome: care instructions [email or web address] Not available 04/08/2024 11:20:25 Reason for Referral None Reported. Results Created Date Observation Date Name Description Value Unit Range Abnormal Flag Note LastModifiedBy Organization Detail LastModifiedTime 03/19/20 24 08/19/2023 MAMMO , abel herrera No observ ation record ed. [email or web address] [facility] [address], [place], [address], 04/08/2024 16:31:45 Result Notes None recorded. Problems Name Problem SNOMED Code Status Onset Date Resolution Date Notes Provider Name and Address Organization Details Recorded Time Chronic obstruct gary pulmonar y disease 13837467 Active 2023 HEBER Mcqueen [address] [place] [address], [phone], [employer] 11:20:38 Morbid obesity 754828334 Active 2023 HEBER Mcqueen [address] [place] [address], [address] 8, [employer] 11:20:42 Congesti ve heart failure 59207294 Active 2023 HEBER Mcqueen [address] [place] [address], [address] 8, [employer] 11:20:35 Restless legs 98916750 Active 2023 HEBER Mcqueen [address] [place] [address], [address] 8, [employer] 11:20:41 Gastroes ophageal reflux disease 300064578 Active 2023 HEBER Mcqueen [address] [place] [address], [address] 8, [employer] 11:20:44 [facility]ia l hyperten mere 37250892 Active 2023 HEBER Mcqueen [address] [place] [address], [address] 8, [employer] 5 11:20:34 Degenera tion of lumbar interver tebral disc 75744092 Active 2023 HEBER Mcqueen [address] [place] [address], [address] 8, [employer] 5 11:20:46 Allergic rhinitis 74322173 Active 2023 HEBER Mcqueen [address] [place] [address], 60[address]385 8, [employer] 5 11:20:31 Acute urinary tract infectio n 790499372 Completed 202304/08/2024 Removal Reason: resolved HEBER Mcqueen [address] [facility], [place], [address], [employer] 5 11:21:01 Acute exacerba tion of chronic obstruct gary pulmonar y disease 048274979 Completed 202304/08/2024 Removal Reason: resolved HEBER Mcqueen [address] [facility], [place], [address], [employer] 11:20:55 Problem Notes None recorded. Procedures Surgical History Date Name Laterality Status Provider Name and Address Organization Details Recorded Time 07/23/19 Most Recent Mammogram completed [employer] 03/19/2024 15:22:11 Caesarean Section completed [email or web address] 01/08/2024 10:04:49 Hernia Repair completed [employer] 01/08/2024 10:04:49 Joint Replacement completed [employer]. 01/08/2024 10:17:04 Tonsillectomy completed [employer]. 01/08/2024 10:04:49 Tubal Ligation completed [employer] 01/08/2024 10:04:49 Gallbladder Surgery completed [employer]. 01/08/2024 10:04:49 Partial Hysterectomy completed [employer]. 01/08/2024 10:04:49 Imaging Results None recorded. Procedure Notes None recorded. Medical Equipment None Reported. Allergies Allergen ID Allergen Name Allergen Category Reaction Reaction Severity Criticality Documentation Date Start Date Code Code System Note Provider Name and Address Organization Details Recorded Time 02801 morphine medicatio n Not available Not available Not available 01/08/2024 7052 [employer]Norm [employer] 10:05:33 28991 Celebrex medicatio n Not available Not available Not available 01/08/2024 41662 7 RxNorm [employer] null, [employer] 4 10:05:41 83325 codeine medicatio n Not available Not available Not available 01/08/2024 2670 RxNorm [employer] null, [employer] 4 10:05:46 79575 Lomotil medicatio n Not available Not available Not available 01/08/2024 57786 RxNorm [employer] null, [employer] 4 10:06:54 21571 meloxicam medicatio n Not available Not available Not available 01/08/2024 97202 RxNorm [employer] null, [employer] 4 10:07:00 27354 clonidine medicatio n Not available Not available Not available 01/08/2024 2599 RxNorm [employer] null, [employer] 4 10:07:07 11732 levofloxa croinne medicatio n Not available Not available Not available 03/19/2024 04759 RxNorm [employer] null, [employer] 15:15:33 Medications Name Sig Start Date Stop [...] propionate 50 mcg/actuati on nasal spray,suspe nsion [place] 1 spray every day by intranasa l [...] Inhaled oxygen flow rate Heart rate Systolic And Diastolic Provider Name and Address Organization Details Last Updated DateTime 5 165.1 cm 59.6 kg/m2 014551. 47 g 96 % 96 % 2 L/min 93 /min 118/72 mm[Hg] Chaya Manjarrez [facility] 5 10:30:25 Date Recorded Body weight Body mass index (BMI) Body height Heart rate Oxygen saturation Oxygen saturation in Arterial blood by Pulse oximetry Inhaled oxygen flow rate Systolic And Diastolic Provider Name and Address Organization Details Last Updated DateTime 4 613510. 9 g 61.6 kg/m2 165.1 cm 78 /min 98 % 98 % 3 L/min 118/81 mm[Hg] Bambi Salas [facility]. 4 10:08:12 Date Recorded Body height Body mass index (BMI) Body weight Body temperature Heart rate Oxygen saturation Oxygen saturation in Arterial blood by Pulse oximetry Inhaled oxygen flow rate Systolic And Diastolic Provider Name and Address Organization Details Last Updated DateTime 4 165.1 cm 60.2 kg/m2 200748. 72 g 98.2 [degF] 86 /min 96 % 96 % 3 L/min 103/73 mm[Hg] Bambi [employer]. 4 15:14:24 Social History Question Answer Notes LastModified by Organizat ion Details LastModified Time Tobacco Smoking Status Former Smoker [facility]. 01/08/2024 10:04:49 Do You Have An Advance [...] Information not available 01/08/2024 What Type Of Plow Holder Do You Use? None Information not available [...] Do You Have A Medical Power Of Small Brake Form Operator? No Information not available 01/08/2024 What Was The Date Of Your Most Recent Tobacco Screening? 04/08/2024 Information not available 04/08/2024 Do You Have [...] anxious, or unable to sleep at night)? [id number] Information not available 03/19/2024 Do you have [...] Stones N Blood Diseases N Hyperthyroidism N Blood Transfusion N Breast Cancer N Emergency room visit since last appointm ent. N COPD Y Depression N Dermatologic Disorders N Lung Disease Y Hypothyroidism N Developmental or Behavioral Disorders N Defects or Inherited Disease N Breast Problem N Difficulty Swallowing N [...] Psychiatric/Mental Health Condition N Organ Transplant N Fibromyalgia N Headaches N Schizophrenia N Dialysis N Kidney Disease N Allergies/Hayfever [...] virus, trivalent, PF 01/08/2024 completed HEBER Mcqueen [address] [place] [address], [phone], [employer] 01/08/2024 15:02:31 Influenza, MDCK, quadrivalent, PF 12/18/2018 completed [employer]i [employer] null, [employer] 03/19/2024 15:14:33 MMR 11/27/2021 completed [employer]i [employer] null, [employer] 03/19/2024 15:14:33 COVID-19, mRNA, LNP-S, PF, 100 mcg/0.5mL dose or 50 mcg/0.25mL dose 03/29/2020 completed Bambi [employer] null, [employer] 03/19/2024 15:14:33 COVID-19, mRNA, LNP-S, PF, 100 mcg/0.5mL dose or 50 mcg/0.25mL dose 04/27/2020 completed [employer]i [employer] null, [employer] 03/19/2024 15:14:33 COVID-19, mRNA, LNP-S, PF, 100 mcg/0.5mL dose or 50 mcg/0.25mL dose 02/01/2021 completed [employer] null, [employer] 03/19/2024 15:14:33 Hep B, adult 07/16/2005 completed [employer]ambi [employer] null, [employer] 03/19/2024 15:14:33 Hep B, adult 01/07/2005 completed [employer] null, [employer] 03/19/2024 15:14:33 Hep B, adult 02/21/2005 completed Bambi [employer] null, [employer] 03/19/2024 15:14:33 Hep A, adult 06/16/2019 completed Bambi [employer] null, [employer] 03/19/2024 15:14:33 Hep A, adult 12/26/2017 completed Bambi [employer] null, [employer] 03/19/2024 15:14:33 Influenza, split virus, quadrivalent, PF 03/30/2018 completed Bambi [employer] null, [employer] 03/19/2024 15:14:33 Influenza, split virus, quadrivalent, PF 12/10/2021 completed [employer] null, [employer] 03/19/2024 15:14:33 Influenza, split virus, quadrivalent, PF 12/16/2020 completed [employer]i [employer] null, [employer] 03/19/2024 15:14:33 Influenza, split virus, quadrivalent, PF 12/21/2019 completed [employer] null, [employer] 03/19/2024 15:14:33 Past Encounters Encounter ID Performer Location Encounter Start Date Encounter Closed Date Diagnosis/Indication Diagnosis SNOMED-CT Code Diagnosis ICD10 Code Diagnosis Note [id number] HEBER Mcqueen [address] [address] 01/08/2024 09:56:00 01/08/2024 11:05:13 Chronic obstructive pulmonary disease 06954788 J44.9 Dependence on supplemental oxygen 1521870285 07 Z99.81 Morbid obesity 527386619 E66.01 Gastroesop hageal reflux disease 337359309 K21.9 Congestive heart failure 88551734 I50.9 Restless legs 15964235 G 25.81 Essential hypertension 76270902 I10 Degenerati on of lumbar intervertebral disc 78023679 M51.369 Allergic rhinitis 958265 04 J30.9 Administra tion of influenza vaccine 21600377 Z23 [id number] HEBER Mcqueen [address] [address] 03/19/2024 15:03:28 03/19/2024 15:51:14 Acute exacerbation of chronic obstructive pulmonary disease 814931800 J44.1 Congestive heart failure 24419228 I50.9 [id number] HEBER Mcqueen [address] [address] 04/08/2024 10:22:18 04/08/2024 11:30:02 Restless legs 16265117 G25.81 Congestive heart failure 43883248 I50.9 Morbid obesity 963538885 E66.01 Chronic ob structive pulmonary disease 90587345 J44.9 Health Concerns Section Related Observation LastModified by Organization Detai ls LastModified Time None Recorded Concern Status LastModified by Organization Details LastModified Time None Recorded Advance Directives Directive N: Payers Insurance Date Sequence Insurance Name Policy Number Policy White Covered Member ID White Member ID Guarantor Name 04/07/2024 1 IBA Roseanne Maharaj [id number] Roseanne Maharaj 04/16/2024 SLIDING FEE SCHEDULE - DISCOUNT Roseannesotero Maharaj 03/22/2024 1 [employer] - [place] [employer] (EPO) Roseanne Maharaj [id number] Roseanne Maharaj 03/19/2024 1 IBA - MULTIPLAN (PPO) Roseanneyun Maharaj [id number] Roseanne Maharaj Notes Date Note Type Note [...] help with the pain. HEBER Mcqueen [address] [place], [address], [employer] 01/08/2024 15:10:01 03/19/2024 text/html Ear pain, sinus pain and pressure, congestion, cough X 4 days. Low grade fever. O2 dependent - worsening shortness of breath. Retaining fluid despite Lasix. No vomiting or diarrhea. HEBER Mcqueen [address] [place], [address], [employer] 03/19/2024 16:32:39 04/08/2024 text/html Patient presents for followup. Was incredibly ill just after Ramiro. Feeling mostly better but still some SOA.States she feels queasy evrey single morning. [facility] HEBER Mcqueen [address] [place] [address], [address], [facility] [employer] 04/08/2024 16:37:55 OBGyn Episode No OBEpisode recorded.
--- NOTE | 2024-10-06 01:29 | ED_ITS ---
Discharge Plan Disposition Patient Disposition: Home, Self-Care Condition: Good Prescriptions Prescriptions: New Eliquis 5 mg tablet 5 mg PO BID 90 Days Qty: 194 0RF Rx Instructions: Take 10 mg (2 tablets) twice daily for the first 7 days. After 1 week, reduce this to 1 5 mg (1 tablet) twice daily until completion. cephalexin 500 mg capsule 500 mg PO QID 7 Days Qty: 28 0RF No Action ipratropium-albuterol 0.5 mg-3 mg(2.5 mg base)/3 mL solution for nebulization 3 ml inhalation Q8H 90 Days Qty: 540 3RF budesonide [Pulmicort] 0.5 mg/2 mL suspension for nebulization 0.5 mg inhalation BID 90 Days Qty: 360 2RF montelukast 10 mg tablet 10 mg PO QPM 90 Days Qty: 90 2RF metoprolol succinate [Toprol XL] 25 mg tablet extended release 24 hr 25 mg PO DAILY Qty: 30 5RF furosemide [Lasix] 20 mg tablet 20 mg PO BID (DME) Monoject Safety Syringes 3 mL 22 gauge x 1 1/2 syringe See Rx Instructions .Route Qty: 4 0RF Rx Instructions: Use once monthly for Vit B12 injections (DME) BD Luer-Carmela Syringe 3 mL 25 gauge x 1 syringe See Rx Instructions .ROUTE .COMPLEX Qty: 100 0RF Dose Instruction: USE DIRECTED Rx Instructions: USE DIRECTED lisinopril-hydrochlorothiazide 20-25 mg tablet See Rx Instructions .ROUTE .COMPLEX Qty: 30 0RF Dose Instruction: TAKE 1 TABLET BY MOUTH EVERY DAY Rx Instructions: TAKE 1 TABLET BY MOUTH EVERY DAY diclofenac sodium 75 mg tablet,delayed release (DR/EC) See Rx Instructions .ROUTE .COMPLEX Qty: 30 0RF Dose Instruction: TAKE ONE TABLET BY MOUTH ONCE A DAY Rx Instructions: TAKE ONE TABLET BY MOUTH ONCE A DAY albuterol sulfate 90 mcg/actuation HFA aerosol inhaler 2 inh IH Q6H PRN (Reason: shortness of breath or wheezing) 90 Days Qty: 8.5 3RF aspirin [Adult Low Dose Aspirin] 81 mg tablet,delayed release (DR/EC) 81 mg PO DAILY Referrals Follow up/Referrals: Provider,Referral, MD [Primary Care Provider, Medical] - See instructions Activity Restrictions/Add. Instructions Additional Instructions/Restrictions: You were evaluated in the ER and are believed to be appropriate for discharge at this time. Take Tylenol or ibuprofen if needed for pain, do not exceed the recommended dose on the bottle. Drink water and eat a small snack extremities medications to avoid side effects. Remove the lidocaine patch after 12 hours. Take the prescribed Eliquis (apixaban?blood thinner) as directed unless given other instructions by your primary care doctor after the DVT ultrasound. Take the prescribed cephalexin (antibiotic) as directed, do not skip doses, do not stop taking this early. You will receive a phone call regarding ultrasound scheduling in the morning. They will schedule the ultrasound to be done in the next few days. Make an appointment with your primary care doctor for immediate reevaluation to discuss the results of your ultrasound and to discuss the continuation of blood thinner if indicated. Return to the ER with any new, worsening, or otherwise concerning symptoms including but not limited to uncontrollable pain, worsening redness or swelling, chest pain or shortness of breath, fevers, or anything else that you are worried about. Clinical Impressions Clinical Impression: Pain of right lower leg Instructions Patient Instructions: DI for Skin Abscess Print Language Print Language: Ukrainian Discharge ED Provider: Tarik Varela General Adult HPI General Chief complaint: Skin/Abscess/Foreign Body Stated complaint: redness both legs, warm to touch, pain R leg Time Seen by Provider: 10/06/24 00:51 Mode of Arrival: Ambulatory Source of Information: Patient Description of Symptoms (Recalled from ER Triage Doc. by RN): pt reports to the ED with complaints of bilateral lower extremity redness that has been ongoing for a while but began having pain yesterday. pt reports they feel warm to the touch. History of Present Illness HPI narrative: 64-year-old female with chronic lower extremity swelling and redness who reports being compliant with all of her home medications including diuretic presents to the ER with complaints of her chronically swollen legs now having pain in the right leg. Patient reports there is a hard patch and demonstrates to the anterior outer aspect of the right foster. She reports no trauma or injury. She states she noticed it developing today but tonight it was exquisitely sensitive. She does not take any blood thinners other than aspirin. She has not had fevers or chills. She does not have any new redness and states other than they are feeling like a firm, tense patch in this area there is not specifically much more swelling. She has no numbness, tingling, or weakness. She has chronic restless legs but is no longer able to take the medication for it secondary to nausea. She reports no new chest pain or shortness of breath, she is chronically on oxygen for COPD but states she has had no changes in her respiratory status. She states she feels well otherwise aside from the abnormality on the right leg. She reports it does not particularly hurt to walk but is very sensitive to the touch. No rash or other skin changes. Related Data Home Medications ?Medication ?Instructions ?Recorded ?Confirmed aspirin 81 mg tablet,delayed 81 mg PO DAILY . 12/08/22 09/23/24 release (Adult Low Dose Aspirin) furosemide 20 mg tablet (Lasix) 20 mg PO BID 08/04/24 09/23/24 Previous Rx's ?Medication ?Instructions ?Recorded syringe with needle, safety 3 mL #4 ea 02/13/21 22 gauge x 1 1/2 (Monoject Safety Syringes) syringe with needle 3 mL 25 gauge #100 ea 10/17/22 x 1 (BD Luer-Carmela Syringe) diclofenac sodium 75 mg See Rx Instructions .Route 0 12/16/23 tablet,delayed release .COMPLEX #30 tabs lisinopril 20 See Rx Instructions .Route 0 12/16/23 mg-hydrochlorothiazide 25 mg tablet .COMPLEX #30 tabs albuterol sulfate 90 mcg/actuation 2 inh inhalation Q6 H PRN shortness 03/03/24 aerosol inhaler of breath or wheezing 90 day s #8.5 grams budesonide 0.5 mg/2 mL suspension 0.5 mg (2 mL) inhala tion BID 90 03/10/24 for nebulization (Pulmicort) days #360 mL ipratropium 0.5 mg-albuterol 3 mg 3 ml inhalation Q8H 3 months #540 03/10/24 (2.5 mg base)/3 mL nebulization mL soln montelukast 10 mg tablet 10 mg PO QPM 90 days #90 tab s 03/10/24 metoprolol succinate 25 mg 25 mg PO DAILY #30 tabs 03/17 tablet,extended release 24 hr (Toprol XL) apixaban 5 mg tablet (Eliquis) 5 mg PO BID 90 days #19 4 tabs 10/06/24 cephalexin 500 mg capsule 500 mg PO QID 7 days #28 cap s 10/06/24 Allergies Allergy/AdvReac Type Severity Reaction Status Date / Time morphine (MORPHINE) Allergy Severe S-DIFF. Verified 09/23/24 11:28 BREATHING atropine (From LOMOTIL) Allergy Intermediate I-RASH Verified 09/23/24 11:28 clonidine Allergy Intermediate swelling Verified 09/23/24 11:28 codeine (CODEINE) Allergy Intermediate I-HIVES Verified 09/23/24 11:28 diphenoxylate (From LOMOTIL) Allergy Intermediate I-RASH Verified 09/23/24 11:28 celecoxib (From CELEBREX) Allergy Unknown Verified 09/23/24 11:28 meloxicam Allergy Verified 09/23/24 11:28 levofloxacin AdvReac Mild Verified 09/23/24 11:28 [facility] Disclaimer: The information contained in this section may have been updated after the patient was seen, as this information can be updated by other users. Medical History Asthma exacerbation Sleep apnea Asthma Asthma-chronic obstructive pulmonary disease overlap syndrome Allergic rhinitis History of sleep apnea Nocturnal hypoxemia Elevated IgE level COPD (chronic obstructive pulmonary disease) Dyspnea on exertion Pulmonary emphysema Stopped smoking with greater than 30 pack year history Eosinophilia, unspecified Neuropathy RLS (restless legs syndrome) Insomnia Knee pain Arthritis Hypertension Surgical History History of tubal ligation History of total hysterectomy History of hernia repair History of section Hx of cholecystectomy History of arthroscopic knee surgery History of tonsillectomy Family History Other Cancer Coronary artery disease Heart attack Hyperlipidemia Social History Smoking Status: Never smoker alcohol intake: never substance use type: denies use current occupational status: other Travel in the last 8 weeks?: None Have you lived/traveled outside [place] in past 30 days?: No Contact w/someone who lives/traveled outside [place] past 30 days?: No Exposure to someone with infectious disease in past 14 days?: No Do you have a fever (greater than 100.4 F or 38 C)?: No Have you tested positive for COVID-19?: No Exposed to someone with COVID-19 in past 14 days?: No Do you have a sore throat?: No Do you have a cough?: No Do you have any weakness?: No Do you have any diarrhea?: No Are you experiencing any unusual bleeding?: No Do you have any muscle aches/pain?: No Do you have any abdominal pain?: No Are you experiencing loss of taste or smell?: No Other Medical History Have you received the Flu Vaccine for this season: Yes Have you received the Pneumonia Vaccine: No ROS Obtained: Yes Systems reviewed as appropriate & no additional complaints except as documented Per HPI Physical Exam General General appearance: alert, in no apparent distress and obese Head Head exam: atraumatic and normocephalic Eye Eye exam: Present PERRL and EOMI ENT ENT exam: Present mucous membranes moist Neck Neck exam: Present normal inspection and full ROM Chest Chest inspection: Present symmetric chest wall rise Respiratory Respiratory exam: Present normal lung sounds bilaterally and other (Saturating well on baseline 2 L nasal cannula); Absent respiratory distress, wheezes or stridor Cardiovascular Cardiovascular exam: Present regular rate and normal rhythm Extremities Exam Extremities exam: Present full ROM, normal capillary refill, edema (+1 bilateral lower extremity pitting edema, patient has very large legs at baseline. Swelling is symmetrical) and other (2+ palpable pulses throughout); Absent joint swelling or calf tenderness Expanded Lower Extremity Exam Right: Leg image: 2 1. Approximately 3 x 5 cm palpable area of tense feeling tissue without visual swelling, there is no redness or induration associated, it is nonpitting, this patch is tender but no evidence of traumatic injury, you cannot appreciate the patch on visualization but can feel it on palpation of the leg, this does not exist on the left lower extremity Neurological Exam Neurological exam: Present alert and oriented X3; Absent motor sensory deficit Psychiatric Psychiatric exam: Present normal affect and normal mood Skin Skin exam: Present warm and dry Medical Decision Making Medical Records Medical records reviewed: Yes I reviewed the patient's medical records. Screening: Per USPSTF and CDC recommendations, given the prevalence of disease in our region, it is our hospital?s policy to screen for HIV and viral Hepatitis for all patients aged 18 and over and those with ongoing risk factors. Obed Inquiry Pt receiving controlled substance: No Vital Signs: 10/06/24 00:19 10/06/24 01:31 10/06/24 01:40 Temperature 98.2 F Temperature Source Oral Pulse Rate 96 H Pulse Rate [Right] 109 H Respiratory Rate 23 Blood Pressure 121/76 Blood Pressure [Right Arm] 120/83 Blood Pressure Mean Blood Pressure Mean [Right Arm] 95 Blood Pressure Position 02 Sat by Pulse Oximetry 93 L 97 95 Oxygen Delivery Method Nasal Cannula Nasal Cannula Oxygen Flow Rate (LPM) 2 2 10/06/24 02:01 10/06/24 02:31 10/06/24 03:01 Temperature 97.9 F Temperature Source Pulse Rate 95 H 94 H 92 H Pulse Rate [Right] Respiratory Rate 16 Blood Pressure 118/87 129/85 121/81 Blood Pressure [Right Arm] Blood Pressure Mean 93 99 94 Blood Pressure Mean [Right Arm] Blood Pressure Position 02 Sat by Pulse Oximetry 98 96 95 Oxygen Delivery Method Oxygen Flow Rate (LPM) 10/06/24 03:17 Temperature 97.9 F Temperature Source Oral Pulse Rate 92 H Pulse Rate [Right] Respiratory Rate 16 Blood Pressure 121/81 Blood Pressure [Right Arm] Blood Pressure Mean Blood Pressure Mean [Right Arm] Blood Pressure Position Supine 02 Sat by Pulse Oximetry Oxygen Delivery Method Nasal Cannula Oxygen Flow Rate (LPM) 2 Lab Data Lab Results 10/06/24 01:18: WBC 7.3, RBC 4.03 L, Hgb 12.1 L, Hct 37.1, MCV 92.1, MCH 30.0, MCHC 32.6, RDW 13.6, Plt Count 211, MPV 9.8, Neut % (Auto) 67.7, Lymph % (Auto) 22.6, Rabun % (Auto) 4.8, Eos % (Auto) 3.7, Baso % (Auto) 0.7, Neut # (Auto) 5.0, Lymph # (Auto) 1.7, Rabun # (Auto) 0.4, Eos # (Auto) 0.3, Baso # (Auto) 0.1, D- Dimer 0.91 H, Sodium 137, Potassium 4.0, Chloride 92 L, Carbon Dioxide 35 H, Anion Gap 14.0, BUN 35 H, Creatinine 1.30 H, Estimated Creat Clear 39, Estimated GFR 41 L, Est GFR ( Amer) 50 L, Glucose 250 H, Calcium 9.2, Total Bilirubin 0.6, AST 56 H, ALT 66, Alkaline Phosphatase 117, NT-Pro-B Natriuret Pep 56.8, Total Protein 7.6, Albumin 4.2, Globulin 3.4 H, Albumin/Globulin Ratio 1.2 10/06/24 01:18 10/06/24 01:18 Orders (Tests/Meds): ED MEDICATIONS Discontinued Medications Generic Name Dose Route Start Last Admin Trade Name Angelq PRN Reason Stop Dose Admin Apixaban 10 mg 10/06/24 09:00 Apixaban 5mg Tablet PO 11/05/24 08:59 BID RANDY Apixaban 10 mg 10/06/24 02:56 10/06/24 03:08 Apixaban 5mg Tablet PO 10/06/24 02:57 10 mg ONCE ONE Administration Cephalexin HCl 500 mg 10/06/24 02:48 10/06/24 02:58 Cephalexin 500mg Capsule PO 10/06/24 02:49 500 mg ONCE ONE Administration Ketorolac Tromethamine 15 mg 10/06/24 02:48 10/06/24 02:57 Ketorolac 30mg/Ml Vial IV 10/06/24 02:49 15 mg ONCE ONE Administration Lidocaine 1 each 10/06/24 02:48 10/06/24 02:56 Lidocaine 5% Transdermal Patch TD 10/06/24 02:49 1 each ONCE ONE Administration ORDERS Category Date Time Status POCUS Point of Care (ER Only) Stat Exams 10/06/24 00:56 Completed BNP [NT Pro Brain Natriuretic Pep.] Stat Lab 10/06/24 01:18 Completed CBC w/Auto Diff [Complete Blood Count Auto Diff] Stat Lab 10/06/24 01:18 Completed CMP [Comprehensive Metabolic Panel] Stat Lab 10/06/24 01:18 Completed D-Dimer Stat Lab 10/06/24 01:18 Completed Medical Decision Narrative: In summary, this 64-year-old female with comorbidities described in the HPI presents to the emergency department today with focal area of pain in the right anterior foster in the setting of chronic bilateral lower extremity swelling and redness. On initial evaluation patient is hemodynamically stable, afebrile, independently ambulatory into the ER, patient was very slightly tachycardic when she first arrived but her tachycardia resolved spontaneously. Review of previous records demonstrates she frequently has heart rates in the upper 90s or low 100s based on previous ER and cardiology records. Exam is notable for a patch of tense feeling tissue without obvious swelling, this patch is painful, it is located on the anterior lateral aspect of the mid right foster. Differential diagnosis includes but is not limited to superficial thrombophlebitis, DVT, cellulitis, I considered abscess but have low suspicion for this, I really actually have low suspicion for cellulitis as well since there is no overlying erythema or heat, also considered volume overload however this isolated patch is not consistent with that. Based on these concerns, I ordered basic serum labs including D-dimer, BNP, I also performed [id number] ultrasound and do not appreciate DVT, I also do not appreciate evidence of superficial thrombophlebitis or cellulitis or abscess on my ultrasound, see procedure notes for details. Labs personally interpreted demonstrate no leukocytosis, mild anemia nonactionable, normal platelets, CMP with baseline kidney dysfunction, D-dimer is slightly elevated at 0.91, by years criteria I do not believe patient has PE and will not proceed with CTA PE, however this does somewhat increase my suspicion for lower extremity clot that was not identified on my limited ultrasound. BNP normal. On reassessment patient is still stable. Toradol and lidocaine patch were administered. I had an extensive risk-benefit discussion with her about her elevated D-dimer and the potential for progressive thromboembolism, PE, stroke, or other complications if it remains untreated while waiting for outpatient ultrasound. We discussed the risks of blood thinners as well. She would like to proceed with blood thinner use which I believe is a good choice at this time and was my recommendation. She was started on Eliquis in the ER and Eliquis prescription was provided. Her legs actually developed some redness and heat overlying the tender area which does increase my suspicion for cellulitis. Given her history I gave her a dose of Keflex and prescribed this as well. Patient was provided outpatient order for DVT ultrasound and given instructions on follow-up for the scan. Prescriptions were provided for Eliquis and Keflex. She was instructed on the use of these medications. She was given instructions for follow-up with DVT ultrasound, primary care doctor, and strict return precautions for the ER. She indicated understanding and the patient was discharged in stable condition. Procedures Miscellaneous Procedure Procedure Performed: Limited DVT ultrasound Indication: Limited compression ultrasonography of the right lower extremity was performed to evaluate for non-compressibility of the deep veins in the patient. The ultrasound was performed with the following indications, as noted in the H&P: Area of pain and tenderness on the right lower extremity Identified structures: Right [common femoral vein, femoral vein, popliteal vein were examined.] I also examined the superficial veins specifically overlying the area where patient has pain and tenderness which is on the anterolateral aspect of the mid right foster Findings: Lower extremity: Right CFV: Good compressibility Right FV: Good compressibility Right Popliteal vein: Good compressibility Superficial veins of the anterior lateral aspect of the right mid foster: Good compressibility Impression: Normal DVT ultrasound, no evidence of DVT or superficial thrombophlebitis in the imaged areas Images were saved to permanent archive The study was technically adequate CPT: 10083-22-WS [id number] 91824-87 (complete bilateral study) This study was performed by me, and I personally interpreted all images/videos. Based on my clinical judgement, these images were adequate and did not necessitate further imaging. Soft tissue ultrasound Indication: Soft tissue pain of the right lower extremity Identified structures: Subcutaneous tissues of the right foster Location: Anterior lateral aspect of the mid right foster Findings: Normal-appearing subcutaneous tissue with no evidence of foreign body or abscess, no cellulitis, good compressibility of the superficial vein Impression: Normal Images were saved saved to the permanent archive. The study was technically adequate. Soft tissue CPT codes Neck: 46070-85 Upper extremity: 07926-64 Axilla: 04191-59 Chest wall: 80186-69 Breast: 71615-11 (complete), 13596-38-[RT/LT] (limited) Upper back: 40842-24 Abdominal wall: 49181-72 Pelvic wall: 02130-84 Lower extremity: 23682-87 Other soft tissue: 20957-62 This study was performed by me, and I personally interpreted all images/videos. Based on my clinical judgment, these images were adequate and did not necessitate further imaging. Critical Care Critical Care Time Critical Care Time: No
[2024-10-06 01:42] LABS: Hematocrit 37.1 % (37.0-47.0); Hemoglobin 12.1 g/dL (12.2-16.2); Immature Granulocytes % 0.5 %; Mean Corpuscular HGB Conc 32.6 g/dL (31.8-35.4); Mean Corpuscular Hemoglobin 30.0 pg (27.0-31.2); Mean Corpuscular Volume 92.1 fl (81-99); Nucleated Red Blood Cells % 0 %; Platelet Count 211 K/mm3 (142-424); Red Blood Count 4.03 M/mm3 (4.20-5.40); Red Cell Distribution Width-SD 46.2 fL; White Blood Count 7.3 K/mm3 (4.8-10.8)
[2024-10-06 01:44] LABS: Albumin Level 4.2 g/dl (3.5-5.0); Chloride 92 mmol/L (98-107)
[2024-10-06 01:45] LABS: Potassium 4.0 mmoL/L (3.5-5.1); Sodium 137 mmol/L (136-145)
[2024-10-06 01:47] LABS: Alanine Aminotransferase 66 U/L (12-78); Albumin/Globulin Ratio 1.2 (1.1-1.8); Alkaline Phosphatase 117 U/L (38-126); Anion Gap 14.0 mEq/L (5-15); Aspartate Amino Transferase 56 U/L (14-36); Bilirubin,Total 0.6 mg/dl (0.2-1.3); Blood Urea Nitrogen 35 mg/dl (7-17); Carbon Dioxide 35 mmol/L (22.0-30.0); Creatinine Clearance Estimated 39 mL/min (50-200); Creatinine,Serum 1.30 mg/dl (0.52-1.04); Estimated Glomerular Filt Rate 41 ml/min (>60); GFR (African American) 50 ML/MIN (>60); Globulin 3.4 g/dL (1.3-3.2); Total Protein,Serum 7.6 g/dl (6.3-8.2)
[2024-10-06 01:48] LABS: Calcium 9.2 mg/dl (8.4-10.2); Glucose 250 mg/dl (74-100)
[2024-10-06 01:52] LABS: D-Dimer 0.91 ug/mL (0.0-0.5)
[2024-10-06 01:56] LABS: NT Pro Brain Natriuretic Pep. 56.8 pg/mL (0-125)
[2024-10-06] MEDS: LIDOCAINE 5% TRANSDERMAL PATCH 1 EACH TD (02:56)
[2024-10-06] MEDS: KETOROLAC 30MG/ML VIAL 15 MG IV (02:57)
--- NOTE | 2024-10-06 03:04 | PC.NURSE ---
Email to care management and message left to clinic pharmacy regarding preauthorization for eliquis prescription.
[2024-10-06] MEDS: APIXABAN 5MG TABLET 10 MG PO (03:08)
== END 2024-10-06 03:20 | disposition home or self-care (01) ==
PROVIDERS: Emergency Provider Emergency Medicine
DX: M79.661 Pain in right lower leg (principal); R60.0 Localized edema
CPT/HCPCS: 80053; 83880; 85025; 85378; 96374; 99284; J1885

== ENCOUNTER 2024-10-06 14:22 | Outpatient (CLI) | payer OTHER, SELFPAY ==
--- NOTE | 2024-10-06 | CA_ITS ---
FINAL REPORT TECHNIQUE: Multiple transverse and longitudinal images were performed of right the femoral-popliteal deep venous system with augmentation and compression maneuvers. CLINICAL HISTORY: HTN, Morbid obesity FINDINGS: Right lower extremity duplex ultrasound demonstrates normal flow in the deep venous system. There is no abnormal echogenicity to suggest thrombus. There is normal compression and augmentation. IMPRESSION: No evidence of right DVT. Reviewed, Interpreted and Dictated by Shweta Craft MD Transcribed by Goldie Hill Authenticated and [facility]
== END 2024-10-06 23:59 | disposition home or self-care (01) ==
LOC: RT 14:23
PROVIDERS: PCP Physician Assistant; Visit Provider Emergency Medicine
DX: M79.661 Pain in right lower leg (principal); I10 Essential (primary) hypertension; E66.01 Morbid (severe) obesity due to excess calories
CPT/HCPCS: 93971